=== PATIENT | female | born 1970 | race Caucasian/White ===

== ENCOUNTER → 2017-10-02 09:39 | Outpatient (CLI) | payer BC, SELFPAY ==
[2017-10-02 12:40] LABS: Absolute Lymphocyte Count 2.43 X10^3/ul (0.83-4.51); Absolute Neutrophil Count 4.8 X10^3/uL (2.0-7.7); Basophil# 0.02 X10^3/uL; Basophil% 0.3 % (0-1); Eosinophil# 0.06 X10^3/uL; Eosinophils% 0.8 % (0-5); Hematocrit 42.5 % (37-47); Hemoglobin 14.7 g/dl (12.0-15.0); Lymphocyte # 2.43 X10^3/ul (4.0); Lymphocyte % 30.8 % (19-41); Mean Corp Hgb Conc 34.6 g/gl (32-36); Mean Corpuscular Hgb 31.4 pg (27.0-32.0); Mean Corpuscular Volume 90.8 fL (81-99); Mean Platelet Vol. 9.7 fl (6.2-12.0); Monocyte# 0.51 X10^3/uL; Monocyte% 6.5 % (0-10); Neutrophil # 4.84 X10^3/uL (2.7-7.7); Neutrophil % 61.2 % (47-70); Platelet Count 310 K/mm3 (150-450); RBC Distribution Width CV 13.1 % (11.6-14.6); RBC Distribution Width SD 43.1 fl (35.1-43.9); Red Blood Count 4.68 M/mm3 (4.2-5.4); White Blood Count 7.9 K/mm3 (4.4-11.0)
[2017-10-02 12:59] LABS: POSITIVE COUNT NO; POSITIVE DIFFERENTIAL NO; POSITIVE MORPHOLOGY NO
[2017-10-02 13:03] LABS: Erythrocyte Sedimentation Rate 10 mm/hr (0-20)
[2017-10-02 13:09] LABS: Vitamin D,25 Hydroxy 19.2 ng/mL (29.95-100.01)
[2017-10-02 13:10] LABS: ALB/GLOB Ratio 1.1 RATIO (0.9-2.4); AST(SGOT) 41 U/L (15-37); Alanine Aminotransfer ALT/SGPT 55 U/L (13-56); Albumin, Serum 3.8 g/dL (3.2-5.0); Alkaline Phosphatase 92 U/L (45-117); Anion Gap 11 (5-15); BUN 19 mg/dL (7-18); BUN/Creat Ratio 30.9 RATIO (10-20); Calcium,Total 8.9 mg/dL (8.5-10.1); Chloride 103 mmol/L (98-107); Creatinine, Serum 0.61 mg/dL (0.55-1.02); EST Glomerular Filtration Rate 110 mL/min (>60); Est Glom Filt Rate - Afr Amer 133 mL/min (>60); Globulin 3.6 g/dL (2.2-4.2); Glucose 205 mg/dL (74-106); Potassium 4.1 mmol/L (3.5-5.1); Protein, Total 7.4 g/dL (6.4-8.2); Sodium Level 138 mmol/L (136-145); T4 Free Direct 0.98 ng/dL (0.76-1.46); Thyroid Stim Hormone (TSH) 1.95 uIU/mL (0.358-3.74)
[2017-10-04 11:32] LABS: CCP IgG Antibodies 4 units (0-19)
== END ==
PROVIDERS: Family Provider Family Medicine; PCP Family Medicine; Visit Provider Family Medicine
DX: R76.8 Other specified abnormal immunological findings in serum (principal); E55.9 Vitamin D deficiency, unspecified; I10 Essential (primary) hypertension; E11.9 Type 2 diabetes mellitus without complications; M06.4 Inflammatory polyarthropathy
CPT/HCPCS: 36415; 80053; 82306; 84439; 84443; 85025; 85652; 86140; 86200; 86431

== ENCOUNTER → 2017-11-01 08:20 | Outpatient (CLI) | payer BC, SELFPAY ==
[2017-11-01 13:11] LABS: T4 Free Direct 1.19 ng/dL (0.76-1.46); Thyroid Stim Hormone (TSH) 0.55 uIU/mL (0.358-3.74)
== END ==
PROVIDERS: Family Provider Family Medicine; PCP Family Medicine; Visit Provider Family Medicine
DX: E03.9 Hypothyroidism, unspecified (principal)
CPT/HCPCS: 36415; 84439; 84443

== ENCOUNTER → 2017-11-25 10:00 | Outpatient (CLI) | payer BC, SELFPAY ==
--- NOTE | 2017-11-25 10:10 | RAD_ITS ---
STUDY: X-RAY - PELVIS REASON FOR EXAM: Female, 47 years old. Pain, decreased range of motion TECHNIQUE: One view of the pelvis was obtained. COMPARISON: None. FINDINGS: There is a non-specific bowel gas pattern. Normal visualized soft tissue structures. There is narrowing with cortical sclerosis and osteophyte formation of the sacroiliac joint consistent with degenerative osteoarthritic changes. Normal visualized bilateral superior and inferior pubic rami. Normal pubic symphysis. Normal ischial tuberosities. Normal visualized right femoral head. Normal right acetabulum. There is moderate articular joint space narrowing of the right hip. Normal visualized left femoral head. Normal left acetabulum. There is moderate articular joint space narrowing of the left hip. RAD/Pelvis 1 or 2 Views IMPRESSION: Degenerative arthrosis, no demonstrated fracture or aggressive osseous lesion. However, hip and pelvic fractures in patients of this age can be subtle, if there are strong clinical suspicion of a fracture, recommend further evaluation with cross-sectional imaging Electronically Signed: Gerald Fulton MD at 11:04 EDT , Service support ,
[2017-11-25 12:42] LABS: Absolute Lymphocyte Count 2.44 X10^3/ul (0.83-4.51); Absolute Neutrophil Count 7.5 X10^3/uL (2.0-7.7); Basophil# 0.02 X10^3/uL; Basophil% 0.2 % (0-1); Eosinophil# 0.03 X10^3/uL; Eosinophils% 0.3 % (0-5); Hematocrit 41.4 % (37-47); Hemoglobin 14.4 g/dl (12.0-15.0); Lymphocyte # 2.44 X10^3/ul (4.0); Lymphocyte % 22.7 % (19-41); Mean Corp Hgb Conc 34.8 g/gl (32-36); Mean Corpuscular Hgb 31.6 pg (27.0-32.0); Mean Platelet Vol. 9.7 fl (6.2-12.0); Monocyte# 0.65 X10^3/uL; Monocyte% 6.1 % (0-10); Neutrophil # 7.54 X10^3/uL (2.7-7.7); Neutrophil % 70.2 % (47-70); Platelet Count 322 K/mm3 (150-450); RBC Distribution Width CV 13.2 % (11.6-14.6); Red Blood Count 4.55 M/mm3 (4.2-5.4); White Blood Count 10.7 K/mm3 (4.4-11.0)
[2017-11-25 12:51] LABS: AST(SGOT) 22 U/L (15-37); Alanine Aminotransfer ALT/SGPT 38 U/L (13-56); Albumin, Serum 3.7 g/dL (3.2-5.0); Alkaline Phosphatase 105 U/L (45-117); Anion Gap 9 (5-15); BUN 20 mg/dL (7-18); BUN/Creat Ratio 28.5 RATIO (10-20); Calcium,Total 9.4 mg/dL (8.5-10.1); Chloride 102 mmol/L (98-107); EST Glomerular Filtration Rate 94 mL/min (>60); Est Glom Filt Rate - Afr Amer 114 mL/min (>60); Globulin 3.6 g/dL (2.2-4.2); Glucose 242 mg/dL (74-106); Protein, Total 7.3 g/dL (6.4-8.2); Sodium Level 136 mmol/L (136-145)
[2017-11-25 13:15] LABS: POSITIVE COUNT NO; POSITIVE DIFFERENTIAL NO; POSITIVE MORPHOLOGY NO
[2017-11-26 14:07] LABS: SJOGREN'S Anti-SS-A test < 0.2 AI (0.0-0.9); SJOGREN'S Anti-SS-B test < 0.2 AI (0.0-0.9)
[2017-11-26 15:18] LABS: ANTINUCLEAR ANTIBODIES DIRECT Negative (Negative)
[2017-12-03 11:15] LABS: HEPATITIS B SURFACE AG Negative (Negative); HLA B27 Negative (.); Hep B Surface Antibodies Reactive (.); Hep C Antibodies <0.1 s/co ratio (0.0-0.9)
== END ==
PROVIDERS: Family Provider Family Medicine; PCP Family Medicine; Visit Provider Internal Medicine Rheumatology
DX: M06.4 Inflammatory polyarthropathy (principal); F41.9 Anxiety disorder, unspecified; F32.89 Other specified depressive episodes; I10 Essential (primary) hypertension; E11.9 Type 2 diabetes mellitus without complications; E03.9 Hypothyroidism, unspecified; E78.5 Hyperlipidemia, unspecified; G47.33 Obstructive sleep apnea (adult) (pediatric)
CPT/HCPCS: 36415; 72170; 80053; 81374; 85025; 86038; 86235; 86431; 86706; 86803; 87340

== ENCOUNTER → 2017-11-29 09:12 | Outpatient (CLI) | payer BC, SELFPAY ==
--- NOTE | 2017-11-29 09:14 | US_ITS ---
STUDY: ABDOMINAL ULTRASOUND - RIGHT UPPER QUADRANT REASON FOR VISIT: Female, 47 years old. Elevated liver enzymes TECHNIQUE: Ultrasound evaluation of the right upper quadrant was performed with real-time and static alvarez-scale imaging. TECHNICAL QUALITY: Adequate. COMPARISON: None. FINDINGS: Liver: The liver measures 17.6 cm. There is increased echogenicity consistent with fatty infiltration. The bile ducts are within normal limits. There is hepatic color flow. The direction of portal flow is hepatopetal. There is no demonstrated mass lesion. Gallbladder: Normal distended gallbladder. The gallbladder wall measures 2.6 mm. There is a negative sonographic Lucas's sign. There is no pericholecystic fluid. There is biliary sludge dependent within the gallbladder. Common Bile Duct (C.B.D.): The common bile duct measures 5.1 mm. Pancreas: Normal size of the head, body and tail of the pancreas. There is increased echogenicity of the pancreas. There is no demonstrated pancreatic mass or cyst. Right Kidney: Normal size of the right kidney. The right kidney measures 13.1 x 6 x 5.1 cm. Normal renal cortex. The right cortex measures 2 cm. There is no demonstrated renal mass or cyst. There is no right hydronephrosis. US/Liver IMPRESSION: Mild gallbladder sludge. Hepatic steatosis and mild hepatomegaly. The pancreas is echogenic consistent with fatty replacement. Electronically Signed: Jean Paul Gupta DO at 13:22 EDT Tel , Service support ,
== END ==
PROVIDERS: Family Provider Family Medicine; PCP Family Medicine; Visit Provider Internal Medicine Rheumatology
DX: M06.4 Inflammatory polyarthropathy (principal); F41.9 Anxiety disorder, unspecified; F32.89 Other specified depressive episodes; I10 Essential (primary) hypertension; E11.9 Type 2 diabetes mellitus without complications; E03.9 Hypothyroidism, unspecified; E78.5 Hyperlipidemia, unspecified; G47.33 Obstructive sleep apnea (adult) (pediatric)
CPT/HCPCS: 76705

== ENCOUNTER 2017-12-27 17:35 | Emergency (ER) | payer BC, SELFPAY ==
[2017-12-27 17:36] VITALS: BP 157/97; PULSE 115; RESP 12; TEMP 36.3; O2SAT 97; BMI 29.5
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
[2017-12-27] MEDS: Acetaminophen 500 MG Tablet 1000 MG PO (17:56)
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
[2017-12-27 19:24] VITALS: BP 146/76; PULSE 105; RESP 18; O2SAT 96
== END 2017-12-27 19:25 | disposition home or self-care (01) ==
PROVIDERS: Emergency Provider Emergency Medicine; Family Provider Family Medicine; PCP Family Medicine
DX: S39.012A Strain of muscle, fascia and tendon of lower back, initial encounter (principal); V89.2XXA Person injured in unspecified motor-vehicle accident, traffic, initial encounter; Y93.9 Activity, unspecified; Y92.9 Unspecified place or not applicable; M25.571 Pain in right ankle and joints of right foot; M47.892 Other spondylosis, cervical region; E11.40 Type 2 diabetes mellitus with diabetic neuropathy, unspecified; I10 Essential (primary) hypertension; E78.00 Pure hypercholesterolemia, unspecified; F41.9 Anxiety disorder, unspecified; F32.9 Major depressive disorder, single episode, unspecified; M06.9 Rheumatoid arthritis, unspecified; Z79.4 Long term (current) use of insulin; Z79.899 Other long term (current) drug therapy
CPT/HCPCS: 72040; 72100; 73610; 99283

== ENCOUNTER → 2018-02-19 08:40 | Outpatient (CLI) | payer BC, SELFPAY ==
[2018-02-19 12:31] LABS: Cholesterol 146 mg/dL (200); High Density Lipoprotein 49 mg/dL; Triglycerides 193 mg/dL; Very Low Density Lipoprotein 39 mg/dL (5-40)
== END ==
PROVIDERS: Family Provider Family Medicine; PCP Family Medicine; Visit Provider Family Medicine
DX: E11.9 Type 2 diabetes mellitus without complications (principal); E78.5 Hyperlipidemia, unspecified
CPT/HCPCS: 36415; 80061

== ENCOUNTER → 2018-03-04 08:20 | Outpatient (CLI) | payer BC, SELFPAY ==
[2018-03-04 10:53] LABS: Hematocrit 38.3 % (37-47); Hemoglobin 12.6 g/dl (12.0-15.0); Lymphocyte % 29.2 % (19-41); Mean Corp Hgb Conc 32.9 g/gl (32-36); Mean Corpuscular Hgb 30.1 pg (27.0-32.0); Mean Corpuscular Volume 91.6 fL (81-99); Mean Platelet Vol. 9.2 fl (6.2-12.0); Neutrophil % 62.2 % (47-70); Platelet Count 274 K/mm3 (150-450); RBC Distribution Width CV 13.2 % (11.6-14.6); RBC Distribution Width SD 44.3 fl (35.1-43.9); Red Blood Count 4.18 M/mm3 (4.2-5.4); White Blood Count 8.9 K/mm3 (4.4-11.0)
[2018-03-04 10:54] LABS: Absolute Lymphocyte Count 2.59 X10^3/ul (0.83-4.51); Absolute Neutrophil Count 5.5 X10^3/uL (2.0-7.7); Basophil# 0.02 X10^3/uL; Basophil% 0.2 % (0-1); Eosinophils% 1.1 % (0-5); Lymphocyte # 2.59 X10^3/ul (4.0); Monocyte# 0.63 X10^3/uL; Monocyte% 7.1 % (0-10); POSITIVE COUNT NO; POSITIVE DIFFERENTIAL NO; POSITIVE MORPHOLOGY NO
[2018-03-04 11:09] LABS: Microalbumin,Random Urine 24.7 mg/L (NO RANGE EST.); Microalbumin:Creatinine Ratio 28.4 mg/g CRE (<30 mg/g CRE)
[2018-03-04 11:14] LABS: Hemoglobin A1c 6.7 % (4.2-6.3)
[2018-03-04 11:26] LABS: AST(SGOT) 18 U/L (15-37); Alanine Aminotransfer ALT/SGPT 29 U/L (13-56); Albumin, Serum 3.3 g/dL (3.2-5.0); Alkaline Phosphatase 85 U/L (45-117); Anion Gap 9 (5-15); BUN 14 mg/dL (7-18); BUN/Creat Ratio 22.3 RATIO (10-20); Calcium,Total 8.8 mg/dL (8.5-10.1); Chloride 108 mmol/L (98-107); Creatinine, Serum 0.63 mg/dL (0.55-1.02); EST Glomerular Filtration Rate 107 mL/min (>60); Est Glom Filt Rate - Afr Amer 129 mL/min (>60); Globulin 3.2 g/dL (2.2-4.2); Glucose 112 mg/dL (74-106); Potassium 4.3 mmol/L (3.5-5.1); Protein, Total 6.5 g/dL (6.4-8.2); Sodium Level 143 mmol/L (136-145)
== END ==
PROVIDERS: Family Provider Family Medicine; PCP Family Medicine; Visit Provider Nurse Practitioner
DX: E11.8 Type 2 diabetes mellitus with unspecified complications (principal); M05.79 Rheumatoid arthritis with rheumatoid factor of multiple sites without organ or systems involvement; F41.9 Anxiety disorder, unspecified; F32.89 Other specified depressive episodes; I10 Essential (primary) hypertension; E03.9 Hypothyroidism, unspecified; E78.5 Hyperlipidemia, unspecified; G47.33 Obstructive sleep apnea (adult) (pediatric)
CPT/HCPCS: 80053; 82043; 82570; 83036; 85025

== ENCOUNTER → 2018-06-27 10:48 | Outpatient (CLI) | payer BC, SELFPAY ==
[2018-03-10 09:21] VITALS: BMI 40.6
[2018-06-27 12:18] LABS: Absolute Lymphocyte Count 2.13 X10^3/ul (0.83-4.51); Absolute Neutrophil Count 6.5 X10^3/uL (2.0-7.7); Basophil# 0.03 X10^3/uL; Basophil% 0.3 % (0-1); Eosinophil# 0.05 X10^3/uL; Eosinophils% 0.5 % (0-5); Hemoglobin 13.6 g/dl (12.0-15.0); Lymphocyte # 2.13 X10^3/ul (4.0); Lymphocyte % 22.6 % (19-41); Mean Corp Hgb Conc 33.2 g/gl (32-36); Mean Corpuscular Hgb 30.7 pg (27.0-32.0); Mean Corpuscular Volume 92.6 fL (81-99); Mean Platelet Vol. 9.3 fl (6.2-12.0); Monocyte# 0.69 X10^3/uL; Monocyte% 7.3 % (0-10); Neutrophil # 6.51 X10^3/uL (2.7-7.7); Neutrophil % 69.2 % (47-70); Platelet Count 332 K/mm3 (150-450); RBC Distribution Width CV 13.4 % (11.6-14.6); RBC Distribution Width SD 44.8 fl (35.1-43.9); Red Blood Count 4.43 M/mm3 (4.2-5.4); White Blood Count 9.4 K/mm3 (4.4-11.0)
[2018-06-27 12:26] LABS: ALB/GLOB Ratio 1.1 RATIO (0.9-2.4); AST(SGOT) 15 U/L (15-37); Alanine Aminotransfer ALT/SGPT 28 U/L (13-56); Albumin, Serum 3.7 g/dL (3.2-5.0); Alkaline Phosphatase 83 U/L (45-117); Anion Gap 7 (5-15); BUN 20 mg/dL (7-18); BUN/Creat Ratio 28.1 RATIO (10-20); Calcium,Total 9.3 mg/dL (8.5-10.1); Chloride 105 mmol/L (98-107); Creatinine, Serum 0.71 mg/dL (0.55-1.02); EST Glomerular Filtration Rate 92 mL/min (>60); Est Glom Filt Rate - Afr Amer 112 mL/min (>60); Globulin 3.3 g/dL (2.2-4.2); Glucose 102 mg/dL (74-106); Potassium 4.4 mmol/L (3.5-5.1); Sodium Level 141 mmol/L (136-145)
[2018-06-27 12:27] LABS: POSITIVE COUNT NO; POSITIVE DIFFERENTIAL NO; POSITIVE MORPHOLOGY NO
--- OUTSIDE RECORDS SUMMARY | 2018-08-22 08:22 | XMS RPT_ITS ---
:1970 Author Organization OHIP Support Name Relationship Address Phone SHANTELLE Unavailable [address] + [place] [address] YUNIELJESUSITAVIVIANE JOHNER Unavailable [address] + [place] [address] ISABELLA NASCIMENTO Unavailable [address] + [place] [address] SHANTELLE Unavailable [address] + [place] [address] TONGVIVIANE GLASERER Unavailable [address] + [place] [address] ISABELLA NASCIMENTO Unavailable [address] + [place] [address] SHANTELLE Unavailable [address] + [place] [address] TONGVIVIANE GLASERER Unavailable [address] + [place] [address] ISABELLA NASCIMENTO Unavailable [address] + [place] [address] TONGJAILYN GHANSHYAM Unavailable [address] + [place] [address] ISABELLA NASCIMENTO Unavailable [address] + [place] [address] UE Unavailable Unavailable Unavailable TONGVIVIANE GLASERER Unavailable [address] + [place] [address] ISABELLA NASCIMENTO Unavailable [address] + [place] [address] UE Unavailable Unavailable Unavailable TONGVIVIANE GLASERER Unavailable [address] + [place] [address] ISABELLA NASCIMENTO Unavailable [address] + [place] [address] UE Unavailable Unavailable Unavailable STINCHCOMBVIVIANEER Unavailable [address] + [place] [address] ISABELLA NASCIMENTO Unavailable [address] + [place] [address] UE Unavailable Unavailable Unavailable STINCHCOMB, GHANSHYAM Unavailable [address] + [place] [address] ISABELLA NASCIMENTO Unavailable [address] + [place] [address] UE Unavailable Unavailable Unavailable STINCHCOMB, GHANSHYAM Unavailable [address] + [place] [address] ISABELLA NASCIMENTO Unavailable [address] + [place] [address] UE Unavailable Unavailable Unavailable STINCHCOMB, GHANSHYAM Unavailable [address] + [place] [address] ISABELLA NASCIMENTO Unavailable [address] + [place] [address] UE Unavailable Unavailable Unavailable STINCHCJAILYN GHANSHYAM Unavailable [address] + [place] [address] ISABELLA NASCIMENTO Unavailable [address] + [place] [address] UE Unavailable Unavailable Unavailable STINCHCJAILYN GHANSHYAM Unavailable [address] + [place] [address] ISABELLA NASCIMENTO Unavailable [address] + [place] [address] WOOCISCH Unavailable [address] + [place] [address] STINCHCJAILYN GHANSHYAM Unavailable [address] + [place] [address] ISABELLA NASCIMENTO Unavailable [address] + [place] [address] WOOCISCH Unavailable [address] + [place] [address] Care Team Providers Name Role Phone Daniel Ballesteros Attending Unavailable Daniel Ballesteros Primary Care Unavailable Daniel Ballesteros Attending Unavailable Daniel Ballesteros Primary Care Unavailable Vellanki, Thelma Attending Unavailable Vellanki, Thelma Referring Unavailable Lesli, Daniel Primary Care Unavailable Vellanki, Thelma Attending Unavailable Vellanki, Thelma Referring Unavailable [facility], Daniel Primary Care Unavailable Lala Sr ASSOCIATE COUNSEL-C Attending Unavailable Lesli, Daniel Referring Unavailable [facility], Daniel Primary Care Unavailable [facility], Daniel Primary Care Unavailable Sparkle Haro Attending Unavailable Lesli, Daniel Attending Unavailable [facility], Daniel Primary Care Unavailable Lala Sr ASSOCIATE COUNSEL-C Attending Unavailable [facility], Daniel Referring Unavailable [facility], Daniel Primary Care Unavailable Lala Sr ASSOCIATE COUNSEL-C Attending Unavailable Lala Sr ASSOCIATE COUNSEL-C Referring Unavailable Lesli, Daniel Primary Care Unavailable Vellanki, Thelma Consulting Unavailable Lala Sr ASSOCIATE COUNSEL-C Attending Unavailable Lesli, Daniel Referring Unavailable Lesli, Daniel Primary Care Unavailable Vellanki, Thelma Attending Unavailable Luizlanpayal, Thelma Referring Unavailable Lesli, Daniel Primary Care Unavailable Lala Sr ASSOCIATE COUNSEL-C Attending Unavailable Lesli, Daniel Referring Unavailable Lala Sr ASSOCIATE COUNSEL-C Attending Unavailable Lala Sr ASSOCIATE COUNSEL-C Referring Unavailable [facility], Daniel Primary Care Unavailable PROBLEMS PROBLEMS DATE TYPE CONDITION / CODE ATTENDING STATUS SOURCE 06/30/2018 Unknown E11.65 - Type 2 ShoaLla lucia Active [place] diabetes mellitus ASSOCIATE COUNSEL-C Community with hyperglycemia / Hospital E11.65(ICD-10) Repository 03/10/2018 Unknown E55.9 - Vitamin D Lala Sr Active [place] deficiency, ASSOCIATE COUNSEL-C Community unspecified / Hospital E55.9(ICD-10) Repository 01/20/2018 Unknown E11.8 - Type 2 Shook, Lala J Active [place] diabetes mellitus ASSOCIATE COUNSEL-C Community with unspecified Hospital complications / Repository E11.8(ICD-10) 12/17/2017 Unknown E11.9 - Type 2 Shook, Lala J Active [place] diabetes mellitus ASSOCIATE COUNSEL-C Community without complications Hospital / E11.9(ICD-10) Repository 12/17/2017 Unknown E10.9 - Type 1 Shook, Lala J Active [place] diabetes mellitus ASSOCIATE COUNSEL-C Community without complications Hospital / E10.9(ICD-10) Repository 11/25/2017 Unknown I10 - Essential Vellanki, Thelma Active [place] (primary) Community hypertension / Hospital I10(ICD-10) Repository 11/25/2017 Unknown 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 / Community M06.4(ICD-10) Hospital Repository 11/25/2017 Unknown E03.9 - LuizlanThelma moe Active [place] Hypothyroidism, Community unspecified / Hospital E03.9(ICD-10) Repository 11/25/2017 Unknown F41.9 - Anxiety Thelma Conti Active [place] disorder, unspecified Community / F41.9(ICD-10) Hospital Repository 11/25/2017 Unknown F32.89 - Other Thelma Conti Active [place] specified depressive Community episodes / Hospital F32.89(ICD-10) Repository 11/25/2017 Unknown E78.5 - Vellanpayal, Thelma Active [place] Hyperlipidemia, Community unspecified / Hospital E78.5(ICD-10) Repository 11/25/2017 Unknown G47.33 - Obstructive VelThelma loredo Active [place] sleep apnea (adult) Community (pediatric) / Hospital G47.33(ICD-10) Repository 10/03/2017 Unknown R76.8 - Other Lesli Daniel Active [place] specified abnormal Community immunological Hospital findings in serum / Repository R76.8(ICD-10) PROCEDURES PROCEDURES No Procedure Records FoundRESULTS RESULTS ENDOCRINOLOGY VISIT Observed: 06/30/2018 Status: F Source: [place] [facility] 10:13 AM [facility] [place] [address] [place] [address]. [address] [place] [address] OFFICE VISIT Date of Service: 06/30/18 MR#: [id number] Acct: [id number] Name: SPARKLE ALANIS Rep #: [id number] : 1970 Provider: Lala Sr NP Age/Sex: 47/F Location: [facility] [place] Status: Signed HPI History of present illness History of present illness Sparkle Alanis is a 47 year old female who presents for follow up of diabetes type 2. Diagnosed in 1997. Currently on levemir 96 units in am and 96 units in pm. Pt denies difficulty with injections or self monitoring of BG. Denies any signs of infection or irritation at site of injections. Reports taking insulin as directed. She is currently finding her meals are improved post meal. Using her prandin 4mg each meal and at bedtime snack if she has one. Also has sliding scale humalog as needed. At time of visit: -Pt denies symptoms of hypertensive emergency (CP,SOB,ALFRED, or blurred vision) and hypotension(dizziness or lightheadedness) -Pt denies symptoms of hypoglycemia ( sweaty, confusion, anxiety, tremor, hunger, palpitations) and hyperglycemia ( polydipsia, polyuria) -Pt denies potential medication adverse effect. Hypoglycemia Aware of hypoglycemia: When awake Able to self treat low BG: Yes Frequent low Blood sugar: No Has supply of glucagon: Yes Diet 3 meals daily Understand carb counting Eats healthy Exercise Is active BG readings AVG readings an 113-160 12n 100-140 5p 140-200 9p 140 -150 Occ 200 BG Exam Const General: comfortable, well groomed Nutritional Appearance: well nourished Orientation: oriented x3 HENPR Head: normal to inspection, normocephalic Ears: hearing grossly normal bilaterally Nose: external nose normal Face and sinus: normal facial exam Mouth: oral mucosae normal, moist mucous membranes Teeth and gingiva: dentition normal Eyes Eyelids: eyelids normal Conjunctivae: conjunctivae normal Sclera: sclerae normal Pupils: PERRL Resp Effort AND Inspection: normal respiratory effort, able to speak in complete sentences, symmetric chest movement Auscultation: Bilateral: Clear to Auscultation Cardio Rate: regular rate Rhythm: regular rhythm Heart Sounds: S1 normal, S2 normal, no murmurs, no rubs GI Inspection: normal to inspection Auscultation: normal bowel sounds Palpation: soft Skin General: no rashes or lesions noted Wounds: no wounds Diabetic Foot Pulses: L dorsalis pedis pulse: normal, R dorsalis pedis pulse: normal Monofilament test: Left foot: normal, Right foot: normal Neuro General: oriented x3 Cognition: normal cognition Speech: speech normal Gait: normal gait Extrem General: normal to inspection, normal capillary refill Psych Appearance: grossly normal Mental Status: mental status grossly normal Mood: congruent mood Affect: normal affect Speech and Movement: speech and movement normal Attitude: cooperative Thought Process: normal Thought Content: normal Judgment: judgment good Type: type 2, insulin-requiring Glucose control symptoms: Reports high fasting glucose and high post-meal glucose Weight and fatigue symptoms: Denies snoring Cardiopulmonary symptoms: Denies chest pain at rest, dyspnea on exertion, lightheadedness or myalgias GI symptoms: Denies constipation, diarrhea, nausea/dyspepsia or vomiting Other symptoms: Denies blurry vision or change in vision Pertinent visit history: Denies recent visit to ER, recent hospital admission or recent 911 calls Intake Vital Signs06/30/18 Height 5 ft 9 in 06/30/18 Weight: 276 lb 2 oz 06/30/18 Body Mass Index (BMI) 40.7 06/30/18 Blood Pressure 111/74 06/30/18 Blood Pressure Location Lt popliteal 06/30/18 Blood Pressure Position Sitting Intake Visit Reasons: Diabetes follow-up Credit Charge Authorizer Required: No Accompanied by: Self Allergies metformin HCl [From Glucophage] Adverse Reaction (Verified 06/30/18 09:06) Unknown Medications Aripiprazole [Abilify] 15 mg PO DAILY 02/24/16 [History Confirmed 06/30/18] Cholecalciferol (VIT D3) [Vitamin D] 1,000 unit PO DAILY 02/24/16 [History Confirmed 06/30/18] adrenal assist PO 12/17/17 [History Confirmed 06/30/18] atorvastatin 10 mg tablet 10 mg PO QDAY 12/17/17 [History Confirmed 06/30/18] calcium carb,cit 300 mg-magnesium cit,ox 150 mg-vit D3 400 unit tablet tab PO 12/17/17 [History Confirmed 06/30/18] cbd oil PO 12/17/17 [History Confirmed 06/30/18] insulin detemir (U-100) 100 unit/mL (3 mL) subcutaneous pen 100 unit SC BID #120 ml 12/17/17 [Rx Confirmed 06/30/18] lactobacillus combination no.8 3 billion cell capsule 3,000 mmu cells PO QDAY 12/17/17 [History Confirmed 06/30/18] levothyroxine 175 mcg tablet 175 mcg PO QDAY 12/17/17 [History Confirmed 06/30/18] lisinopril 10 mg tablet 10 mg PO QDAY 12/17/17 [History Confirmed 06/30/18] monolauren PO 12/17/17 [History Confirmed 06/30/18] multivitamin tablet 1 tab PO QDAY 12/17/17 [History Confirmed 06/30/18] naproxen sodium 220 mg capsule 220 mg PO QDAY cap 12/17/17 [History Confirmed 06/30/18] repaglinide 2 mg tablet See Rx Instructions PO TID #240 tab 12/17/17 [Rx Confirmed 06/30/18] theracurmin PO 12/17/17 [History Confirmed 06/30/18] vitamin A 8,000 unit capsule 8,000 unit PO QDAY 12/17/17 [History Confirmed 06/30/18] vitamin B complex tablet 1 tab PO QDAY 12/17/17 [History Confirmed 06/30/18] wellness formula PO 12/17/17 [History Confirmed 06/30/18] Vit B12/Levomefolate/Vit B6/B2 [l-Methyl-Mc Tablet] 1 ea PO 12/27/17 [History Confirmed 06/30/18] hydroxychloroquine 200 mg tablet 200 mg PO BID tab 01/20/18 [History Confirmed 06/30/18] sitagliptin 100 mg tablet 100 mg PO QDAY #30 tab 03/10/18 [Rx Confirmed 06/30/18] insulin aspart U- 100 100 unit/mL subcutaneous pen 50 unit SC DAILY #45 ml 03/24/18 [Rx Confirmed 06/30/18] bupropion HCl XL 150 mg 24 hr tablet, extended release 150 mg PO QAM 06/30/18 [History Confirmed 06/30/18] fluoxetine 20 mg capsule 60 mg PO QDAY cap 06/30/18 [History Confirmed 06/30/18] Nurse's Note: blood sugars : low : 84 high : 315 [facility] Medical History Anxiety and depression (Acute) Arthritis (Acute) Breast lump (Acute) High cholesterol (Acute) Recurrent UTI (Acute) Rheumatoid arthritis (Acute) Sleep apnea (Acute) Thyroid disease (Acute) Type 2 diabetes mellitus (Acute) Vitamin D deficiency (Acute) abnormal calcium level (Acute) HTN (hypertension) (Chronic) Surgical History lip surgery (Acute) Family History Unknown Bleeding disorder Breast cancer Diabetes Heart disease Hypertension High cholesterol Thyroid disorder Skin cancer Social History Smoking Status: Never smoker alcohol intake: never substance use type: does not use ROS Const Constitutional: No anorexia, body ache, chills, fatigue, fever(s), frequent falls, decreased energy, malaise, night sweats, weakness, weight change, sleep problems, abnormal sleep pattern, change in appetite, other, headache(s), snoring or excessive sweating Eyes Eyes: No blurry vision, change in vision, double vision, discharge, dry eyes, bulging eyes, floaters, visual disturbances, eye pain, light sensitivity, spots in vision, tunnel vision or other ENT ENT: No abnormal hearing, ear pain, ear discharge, ear pressure, hearing loss, tinnitus, dizziness/vertigo, balance problems, nosebleed/epistaxis, nasal congestion, nasal obstruction, nose pain, sinus pressure, sinus pain, nasal discharge, post nasal drip, headache(s), facial pain, dental pain, dry mouth, bad breath, hoarseness, lip swelling, mouth lesions, mouth pain, sore throat, tongue swelling, throat swelling, other, difficulty swallowing or neck pain Resp Respiratory: No cough, change in phlegm color, chest congestion, excessive phlegm production, hemoptysis, pain on inspiration, shortness of breath, pain with cough, snoring, stridor, wheezing or other Cardio Cardiology: No chest pain at rest, chest pain with exertion, leg pain with exertion, excessive sweating, shortness of breath, dyspnea on exertion, generalized swelling, irregular heart rhythm, lightheadedness, orthopnea, radiating jaw, neck or arm pain, fast heart rate, slow heart rate, palpitations or other Gastro GI: No abdominal pain, belching, bloating, change in bowel habits, change in stool character, coffee ground emesis, constipation, cramping, diarrhea, heartburn, difficulty swallowing, feeling full early, excessive flatus, incontinent of stools, Vomiting blood/hematemesis, blood in stool, loose stools, Black,tarry stools, nausea/dyspepsia, pain with swallowing, vomiting or other Genitourinary-Female: No difficulty urinating, burning urination, painful urination, urinary incontinence, urinary frequency, urinary urgency, urinary hesitancy, urinary retention, blood in urine, Frequent nighttime urination/ nocturia, post void dribbling, suprapubic fullness, side pain, sexual problems, genital lesions, genital itching, hot flashes, abnormal periods, abnormal vaginal bleeding, absent period, painful periods, light periods, heavy periods, difficulty getting , painful intercourse, pelvic pain, vaginal dryness, vaginal odor, Vaginal Itching or other Musc Musculoskeletal: No abnormal walking, joint pain, back pain, deformity, joint swelling, limited range of motion, loss of height, muscle cramps, muscle weakness, decreased muscle mass, body aches, neck pain, numbness, radiating pain into limb, stiffness, tingling or other Skin Skin: No acne, hair loss, change in hair, nail changes, boil, change in skin color, dry skin, redness, excessive hair growth, yellowing of the skin, lesions, itching, rash, skin pain, skin ulcer, sores, skin swelling, wounds or other Breast Breast: No other Neuro Neurology: No frequent falls, weakness, visual disturbances, abnormal hearing, headache(s), abnormal walking, numbness or tingling Psych Psychiatric: No abnormal sleep pattern, No change in appetite Endo Endocrine: No fatigue, other or excessive sweating Aller/Imm Allergy/Immunologic: No lip swelling, tongue swelling, throat swelling, wheezing or itchy eyes Assessment AND Plan 1. Uncontrolled type 2 diabetes mellitus with hyperglycemia E11.65 Plan Diabetes: Brings BG well documented. Feels good. Does reports BG dropping overnight. Review of data suggests happens more often when she takes sliding scale correction after evening meal so we discussed lowering her correction scale. Will ask patient to lower her levemir dose at bedtime t 90 units to determine if we can avoid drop in BG overnight. Vit D deficency: Has been taking vit D and is time to recheck labs. Lipids: In range BP normal range. Orders Orders: 2. Essential hypertension with goal blood pressure less than 130/80 I10 Plan In normal range. No side effects of medication. Microalbumin normal range. Orders Orders: 3. Hypothyroidism (acquired) E03.9 Plan Hypothyroidism: Taking replacement as directed. not missing any doses. Feels good overall. Severity, modifying factors, context, and associated signs and symptoms are as follows: Thyroid pain: No Energy:good Sleep: awakened refreshed Temp: No intolerance GI: Normal bowel Weight: Flucuates Eyes: No change in vision Memory: unchanged Diaphoresis: Not significant Skin: Dry Hair : Unchanged Neuro: No numbness, tingling or tremors Orders Orders: Plan Detail Other Medications New: Additional Comments 1. Please schedule follow up in 3 months. 2. Lab work one week before appointment. 3. Discussed importance of regular exercise and recommend starting or continuing a regular exercise program for good health. 4. The patient was encouraged to lose weight for good health 5. The importance of monitoring blood sugar regularly was reviewed. 6. The importance of monitoring the HBA1c level regularly was reviewed. 7. The importance of prper foot care and regularly checking feet to prevent sores and loss of limbs was reviewed. 8. The importance of keeping BP at or below 130/80 to prevent stroke, heart attacks, kidney failure, blindness was reviewed. Spent approximately 30 minutes with patient with over 50% of time spent in discussion and counseling regarding medication adjustment, symptoms and treatment of hypoglycemia, diet adherence, and checking BG before driving. Coding Level of Care Code Off vis,est,level 4 Diagnoses Uncontrolled type 2 diabetes mellitus with hyperglycemia E11.65 Glycemic state: with hyperglycemia Essential hypertension with goal blood pressure less than 130/80 I10 Hypothyroidism (acquired) E03.9 06/30/18 1013 <Electronically signed by Lala HORAN> Date Lala HORAN Cosigner Signature: Date (if applicable) CC: HEMOGLOBIN A1C Collected: 06/30/2018 Status: F Source: [place] 10:01 AM [facility] [place] [place] TYPE CODE TESTS RESULT OUT OF RANGE REFERENCE UNITS LAB L501.9985 4.2-6.3 % High HGB A1C 6.8 Performed By: #### L501.9985 #### [place] [facility] [address] [place], [address] VITAMIN D,25 HYDROXY Collected: 06/30/2018 Status: F Source: [place] 10:01 AM [facility] [place] [place] TYPE CODE TESTS RESULT OUT OF RANGE REFERENCE UNITS LAB L506.1000 29.95-100.01 ng/mL Normal Vitamin D 50.0 25-OH Result Comment: Vitamin D 25(OH) Status Range Deficiency <20 ng/mL (50nmol/L) Insuffciency 20 - 30 ng/mL (50 - 75 nmol/L) Sufficiency 30 - 100 ng/mL (75 - 250 nmol/L) Toxicity >100 ng/mL (>250 nmol/L) Performed By: #### L506.1000 #### [facility] [address] [place], [address] COMPREHENSIVE METABOLIC Collected: 06/27/2018 Status: F Source: [place] [facility] 10:59 AM [facility] [place] TYPE CODE TESTS RESULT OUT OF RANGE REFERENCE UNITS LAB L501.0100 74-106 mg/dL Normal GLU 102 Result Comment: Fasting Glucose result from 100 to 125 mg/dL suggests IMPAIRED HOMEOSTASIS per A.D.A. criteria. Please note revised GLUCOSE reference range effective 2017. LAB L501.1000 7-18 mg/dL High BUN 20 LAB L501.1100 0.55-1.02 mg/dL Normal CREAT,SERUM 0.71 Result Comment: The validity of the calculated GFR AND GFRAA in patients over 70 years has not been determined. Clinical correlation is essential. LAB L501.1110 >60 mL/min Normal EST GFR 92 Result Comment: Non- GFR Calc LAB L501.1115 >60 mL/min Normal EST GFR - AA 112 Result Comment: GFR Calc LAB L501.1300 10-20 RATIO High BUN/CRE 28.1 LAB L501.1500 6.4-8.2 g/dL T Normal PROT 7.0 LAB L501.1800 3.2-5.0 g/dL Normal ALB 3.7 LAB L501.1950 2.2-4.2 g/dL Normal GLOB 3.3 LAB L501.2000 0.9-2.4 RATIO Normal A/G 1.1 LAB L501.2200 8.5-10.1 mg/dL CA Normal 9.3 LAB L501.4100 15-37 U/L Normal AST 15 LAB L501.4305 45-117 U/L Normal ALK P 83 LAB L501.4405 13-56 U/L Normal ALT 28 LAB L501.4600 0.20-1.00 mg/dL T Normal BILI 0.70 LAB L501.5300 136-145 mmol/L NA Normal 141 LAB L501.5600 3.5-5.1 mmol/L K Normal 4.4 LAB L501.5900 98-107 mmol/L CL Normal 105 LAB L501.6100 21.0-32.0 mmol/L Normal CO2 29.0 LAB L501.6200 5-15 Normal GAP 7 Performed By: #### L500.4050 #### [facility] [address] [place], [place], [address] CBC W/DIFF, AUTOMATED Collected: 06/27/2018 Status: F Source: [place] 10:59 AM [facility] [place] TYPE CODE TESTS RESULT OUT OF RANGE REFERENCE UNITS LAB L100.1000 4.4-11.0 K/mm3 Normal WBC 9.4 LAB L100.1200 4.2-5.4 M/mm3 Normal RBC 4.43 LAB L100.1300 12.0-15.0 g/dl Normal HGB 13.6 LAB L100.1400 37-47 % Normal HCT 41.0 LAB L100.1500 81-99 fL Normal MCV 92.6 LAB L100.1600 27.0-32.0 pg Normal MCH 30.7 LAB L100.1700 32-36 g/gl Normal MCHC 33.2 LAB L100.1810 11.6-14.6 % Normal RDW CV 13.4 LAB L100.1820 35.1-43.9 fl High RDW SD 44.8 LAB L100.1900 150-450 K/mm3 Normal PLT 332 LAB L100.2000 6.2-12.0 fl Normal MPV 9.3 LAB L100.2100 47-70 % Normal NEUT% 69.2 LAB L100.2200 19-41 % Normal LY% 22.6 LAB L100.2300 0-10 % Normal MONO% 7.3 LAB L100.2400 0-5 % Normal EO% 0.5 LAB L100.2500 0-1 % Normal BASO% 0.3 LAB L100.2550 0.0-0.9 % Normal IM GRAN % 0.100 Result Comment: IG% - Immature Granulocytes (promyelocytes, myelocytes and metamyelocytes) > 1% indicates that a LEFT SHIFT is Present. LAB L100.2620 2.0-7.7 X10 3/uL Normal Absolute Neut 6.5 LAB L100.2720 0.83-4.51 X10 3/ul Normal Absolute Lymph 2.13 Performed By: #### L100.0100 #### [facility] [address] [place], [address] ENDOCRINOLOGY VISIT Observed: 03/11/2018 Status: F Source: [place] [facility] 7:18 PM [facility] [place] [facility] [address] [place] [address] OFFICE VISIT Date of Service: 03/10/18 MR#: [id number] Acct: [id number] Name: SPARKLE ALANIS Rep #: [id number] : 1970 Provider: Lala Sr NP Age/Sex: 47/F Location: [facility] [place] Status: Signed HPI History of present illness Sparkle Alanis is a 47 year old female who presents for follow up of diabetes type 2. Diagnosed in 1997. Currently on levemir 90 units in am and 96 units in pm. Pt denies difficulty with injections or self monitoring of BG. Denies any signs of infection or irritation at site of injections. Reports taking insulin as directed. She is currently finding her meals are improved post meal. Using her prandin 4mg each meal and at bedtime snack if she has one At time of visit: -Pt denies symptoms of hypertensive emergency (CP,SOB,ALFRED, or blurred vision) and hypotension(dizziness or lightheadedness) -Pt denies symptoms of hypoglycemia ( sweaty, confusion, anxiety, tremor, hunger, palpitations) and hyperglycemia ( polydipsia, polyuria) -Pt denies potential medication adverse effect. Hypoglycemia Aware of hypoglycemia: When awake Able to self treat low BG: Yes Frequent low Blood sugar: No Has supply of glucagon: Yes Diet 3 meals daily Understand carb counting Eats healthy Exercise Is active BG readings AVG readings an 120 -150 12n 100-140 5p 140-160 9p 140 -150 Occ 200 BG Exam Const General: comfortable, well groomed Nutritional Appearance: well nourished Orientation: oriented x3 HENMT Head: normal to inspection, normocephalic Ears: hearing grossly normal bilaterally Nose: external nose normal Face and sinus: normal facial exam Mouth: oral mucosae normal, moist mucous membranes Teeth and gingiva: dentition normal Eyes Eyelids: eyelids normal Conjunctivae: conjunctivae normal Sclera: sclerae normal Pupils: PERRL Resp Effort AND Inspection: normal respiratory effort, able to speak in complete sentences, symmetric chest movement Auscultation: Bilateral: Clear to Auscultation Cardio Rate: regular rate Rhythm: regular rhythm Heart Sounds: S1 normal, S2 normal, no murmurs, no rubs GI Inspection: normal to inspection Auscultation: normal bowel sounds Palpation: soft Skin General: no rashes or lesions noted Wounds: no wounds Diabetic Foot Pulses: L dorsalis pedis pulse: normal, R dorsalis pedis pulse: normal Monofilament test: Left foot: normal, Right foot: normal Neuro General: oriented x3 Cognition: normal cognition Speech: speech normal Gait: normal gait Extrem General: normal to inspection, normal capillary refill Psych Appearance: grossly normal Mental Status: mental status grossly normal Mood: congruent mood Affect: normal affect Speech and Movement: speech and movement normal Attitude: cooperative Thought Process: normal Thought Content: normal Judgment: judgment good Type: type 2 Glucose control symptoms: Reports high post-meal glucose Weight and fatigue symptoms: Denies snoring Cardiopulmonary symptoms: Denies chest pain at rest, dyspnea on exertion, lightheadedness or myalgias GI symptoms: Denies constipation, diarrhea, nausea/dyspepsia or vomiting Other symptoms: Denies blurry vision or change in vision Pertinent visit history: Denies recent visit to ER, recent DKA or recent 911 calls Self monitoring: Yes Percentage of fasting blood glucose within goal: >50% of the time Dietary compliance: Diabetes: good Glucose testing: demonstrates correct use of meter day education - understands ketone testing: Yes Physical activity: regular Intake Vital Signs03/10/18 Height 5 ft 9 in 03/10/18 Weight: 275 lb 8 oz 03/10/18 Body Mass Index (BMI) 40.6 03/10/18 Blood Pressure 141/87 03/10/18 Blood Pressure Location Lt popliteal 03/10/18 Blood Pressure Position Sitting Intake Visit Reasons: diabetes Credit Charge Authorizer Required: No Accompanied by: Self Is patient in pain?: No Allergies metformin HCl [From Glucophage] Adverse Reaction (Verified 03/10/18 09:19) Unknown Medications Aripiprazole [Abilify] 15 mg PO DAILY 02/24/16 [History Confirmed 03/10/18] Cholecalciferol (VIT D3) [Vitamin D] 1,000 unit PO DAILY 02/24/16 [History Confirmed 03/10/18] Venlafaxine XR [Effexor Xr] 150 mg PO DAILY 02/24/16 [History Confirmed 03/10/18] adrenal assist PO 12/17/17 [History Confirmed 03/10/18] atorvastatin 10 mg tablet 10 mg PO QDAY 12/17/17 [History Confirmed 03/10/18] calcium carb,cit 300 mg-magnesium cit,ox 150 mg-vit D3 400 unit tablet tab PO 12/17/17 [History Confirmed 03/10/18] cbd oil PO 12/17/17 [History Confirmed 03/10/18] insulin detemir (U-100) 100 unit/mL (3 mL) subcutaneous pen 100 unit SC BID #120 ml 12/17/17 [Rx Confirmed 03/10/18] lactobacillus combination no.8 3 billion cell capsule 3,000 mmu cells PO QDAY 12/17/17 [History Confirmed 03/10/18] levothyroxine 175 mcg tablet 175 mcg PO QDAY 12/17/17 [History Confirmed 03/10/18] lisinopril 10 mg tablet 10 mg PO QDAY 12/17/17 [History Confirmed 03/10/18] monolauren PO 12/17/17 [History Confirmed 03/10/18] multivitamin tablet 1 tab PO QDAY 12/17/17 [History Confirmed 03/10/18] naproxen sodium 220 mg capsule 220 mg PO QDAY cap 12/17/17 [History Confirmed 03/10/18] repaglinide 2 mg tablet See Label Instructions PO TID #240 tab 12/17/17 [Rx Confirmed 03/10/18] theracurmin PO 12/17/17 [History Confirmed 03/10/18] vitamin A 8,000 unit capsule 8,000 unit PO QDAY 12/17/17 [History Confirmed 03/10/18] vitamin B complex tablet 1 tab PO QDAY 12/17/17 [History Confirmed 03/10/18] wellness formula PO 12/17/17 [History Confirmed 03/10/18] Vit B12/Levomefolate/Vit B6/B2 [l-Methyl-Mc Tablet] 1 ea PO 12/27/17 [History Confirmed 03/10/18] hydroxychloroquine 200 mg tablet 200 mg PO BID tab 01/20/18 [History Confirmed 03/10/18] fluoxetine 20 mg capsule 20 mg PO QDAY 03/10/18 [History Confirmed 03/10/18] sitagliptin 100 mg tablet 100 mg PO QDAY #30 tab 03/10/18 [Rx Confirmed 03/10/18] Is last menstrual period known: No Post menopausal: Yes Patient : No Nurse's Note: blood sugars : low : 104 high : 312 PFSH Medical History Anxiety and depression (Acute) Arthritis (Acute) Breast lump (Acute) High cholesterol (Acute) Recurrent UTI (Acute) Rheumatoid arthritis (Acute) Sleep apnea (Acute) Thyroid disease (Acute) Type 2 diabetes mellitus (Acute) Vitamin D deficiency (Acute) abnormal calcium level (Acute) HTN (hypertension) (Chronic) Surgical History lip surgery (Acute) Family History Unknown Bleeding disorder Breast cancer Diabetes Heart disease Hypertension High cholesterol Thyroid disorder Skin cancer Social History Smoking Status: Never smoker alcohol intake: never substance use type: does not use ROS Const Constitutional: No anorexia, body ache, chills, fatigue, fever(s), frequent falls, decreased energy, malaise, night sweats, weakness, weight change, sleep problems, abnormal sleep pattern, change in appetite, other, headache(s), snoring or excessive sweating Eyes Eyes: No blurry vision, change in vision, double vision, discharge, dry eyes, bulging eyes, floaters, visual disturbances, eye pain, light sensitivity, spots in vision, tunnel vision or other ENT ENT: No abnormal hearing, ear pain, ear discharge, ear pressure, hearing loss, tinnitus, dizziness/vertigo, balance problems, nosebleed/epistaxis, nasal congestion, nasal obstruction, nose pain, sinus pressure, sinus pain, nasal discharge, post nasal drip, headache(s), facial pain, dental pain, dry mouth, bad breath, hoarseness, lip swelling, mouth lesions, mouth pain, sore throat, tongue swelling, throat swelling, other, difficulty swallowing or neck pain Resp Respiratory: No cough, change in phlegm color, chest congestion, excessive phlegm production, hemoptysis, pain on inspiration, shortness of breath, pain with cough, snoring, stridor, wheezing or other Cardio Cardiology: No chest pain at rest, chest pain with exertion, leg pain with exertion, excessive sweating, shortness of breath, dyspnea on exertion, generalized swelling, irregular heart rhythm, lightheadedness, orthopnea, radiating jaw, neck or arm pain, fast heart rate, slow heart rate, palpitations or other Gastro GI: No abdominal pain, belching, bloating, change in bowel habits, change in stool character, coffee ground emesis, constipation, cramping, diarrhea, heartburn, difficulty swallowing, feeling full early, excessive flatus, incontinent of stools, Vomiting blood/hematemesis, blood in stool, loose stools, Black,tarry stools, nausea/dyspepsia, pain with swallowing, vomiting or other Genitourinary-Female: No difficulty urinating, burning urination, painful urination, urinary incontinence, urinary frequency, urinary urgency, urinary hesitancy, urinary retention, blood in urine, Frequent nighttime urination/ nocturia, post void dribbling, suprapubic fullness, side pain, sexual problems, genital lesions, genital itching, hot flashes, abnormal periods, abnormal vaginal bleeding, absent period, painful periods, light periods, heavy periods, difficulty getting , painful intercourse, pelvic pain, vaginal dryness, vaginal odor, Vaginal Itching or other Musc Musculoskeletal: No abnormal walking, joint pain, back pain, deformity, joint swelling, limited range of motion, loss of height, muscle cramps, muscle weakness, decreased muscle mass, body aches, neck pain, numbness, radiating pain into limb, stiffness, tingling or other Skin Skin: No acne, hair loss, change in hair, nail changes, boil, change in skin color, dry skin, redness, excessive hair growth, yellowing of the skin, lesions, itching, rash, skin pain, skin ulcer, sores, skin swelling, wounds or other Breast Breast: No other Neuro Neurology: No frequent falls, weakness, visual disturbances, abnormal hearing, headache(s), abnormal walking, numbness or tingling Psych Psychiatric: No abnormal sleep pattern, No change in appetite Endo Endocrine: No fatigue, other or excessive sweating Aller/Imm Allergy/Immunologic: No lip swelling, tongue swelling, throat swelling, wheezing or itchy eyes Assessment AND Plan Problems 1. Uncontrolled type 2 diabetes mellitus with complication, with long-term current use of insulin E11.8 2. Essential hypertension with goal blood pressure less than 130/80 I10 Plan Will further increase insulin up to 100 units. Also will apply for coupon for [employer] to bring overall cost down for patient. Can use sliding scale novolog as needed. Given sample. Scale 5 units per 50. BP rechecked 132/76. Working hard at diet and exercise. Needs vitamind D levels checked. A1c now 6.7 which is really great. Orders Orders: Medications New: Plan Detail Additional Comments 1. Please schedule follow up in 3 months. 2. Lab work one week before appointment. 3. Discussed importance of regular exercise and recommend starting or continuing a regular exercise program for good health. 4. The patient was encouraged to lose weight for good health 5. The importance of monitoring blood sugar regularly was reviewed. 6. The importance of monitoring the HBA1c level regularly was reviewed. 7. The importance of prper foot care and regularly checking feet to prevent sores and loss of limbs was reviewed. 8. The importance of keeping BP at or below 130/80 to prevent stroke, heart attacks, kidney failure, blindness was reviewed. Spent approximately 30 minutes with patient with over 50% of time spent in discussion and counseling regarding medication adjustment, symptoms and treatment of hypoglycemia, diet adherence, and checking BG before driving. Reviewed records, labs. Coding Level of Care Code Off vis,est,level 4 Diagnoses Uncontrolled type 2 diabetes mellitus with complication, with long-term current use of insulin E11.8 Diabetes mellitus fdc insulin use: with manager intermediate use Diabetes mellitus complication status: with unspecified complications Essential hypertension with goal blood pressure less than 130/80 I10 03/11/181917 <Electronically signed by Lala HORAN> Date Lala HORAN Cosigner Signature: Date (if applicable) CC: CBC W/DIFF, AUTOMATED Collected: 03/04/2018 Status: F Source: [place] 8:27 AM [facility] Order Comment: SUNI ORDERED CMP AND CBCD JOSERON ORDERED HA1C,MIALB,CMP TYPE CODE TESTS RESULT OUT OF RANGE REFERENCE UNITS LAB L100.1000 4.4-11.0 K/mm3 Normal WBC 8.9 LAB L100.1200 4.2-5.4 M/mm3 Low RBC 4.18 LAB L100.1300 12.0-15.0 g/dl Normal HGB 12.6 LAB L100.1400 37-47 % Normal HCT 38.3 LAB L100.1500 81-99 fL Normal MCV 91.6 LAB L100.1600 27.0-32.0 pg Normal MCH 30.1 LAB L100.1700 32-36 g/gl Normal MCHC 32.9 LAB L100.1810 11.6-14.6 % Normal RDW CV 13.2 LAB L100.1820 35.1-43.9 fl High RDW SD 44.3 LAB L100.1900 150-450 K/mm3 Normal PLT 274 LAB L100.2000 6.2-12.0 fl Normal MPV 9.2 LAB L100.2100 47-70 % Normal NEUT% 62.2 LAB L100.2200 19-41 % Normal LY% 29.2 LAB L100.2300 0-10 % Normal MONO% 7.1 LAB L100.2400 0-5 % Normal EO% 1.1 LAB L100.2500 0-1 % Normal BASO% 0.2 LAB L100.2550 0.0-0.9 % Normal IM GRAN % 0.200 Result Comment: IG% - Immature Granulocytes (promyelocytes, myelocytes and metamyelocytes) > 1% indicates that a LEFT SHIFT is Present. LAB L100.2620 2.0-7.7 X10 3/uL Normal Absolute Neut 5.5 LAB L100.2720 0.83-4.51 X10 3/ul Normal Absolute Lymph 2.59 Performed By: #### L100.0100 #### [facility] [address] [place], [address] MICROALB:CREAT Collected: 03/04/2018 Status: F Source: LINO RATIO,RANDOM UR 8:27 AM [facility] Order Comment: VELLANKI ORDERED CMP AND CBCD SHOOK ORDERED HA1C,MIALB,CMP TYPE CODE TESTS RESULT OUT OF RANGE REFERENCE UNITS LAB L501.1200 NO RANGE EST. mg/dL Normal UR CREAT 87.10 LAB L502.0500 NO RANGE EST. mg/L Normal 24.7 MICROALBUMIN ,UR LAB L502.0600 <30 mg/g CRE mg/g CRE Normal 28.4 MALB:CREAT Performed By: #### L502.0250, L501.9985 #### [facility] [address] [place], [place], [address] HEMOGLOBIN A1C Collected: 03/04/2018 Status: F Source: LINO 8:27 AM [facility] Order Comment: VELLANKI ORDERED CMP AND CBCD SHOOK ORDERED HA1C,MIALB,CMP TYPE CODE TESTS RESULT OUT OF RANGE REFERENCE UNITS LAB L501.9985 4.2-6.3 % High HGB A1C 6.7 Performed By: #### L502.0250, L501.9985 #### [facility] [address] [place], [place], [address] COMPREHENSIVE METABOLIC Collected: 03/04/2018 Status: F Source: LINO PROFIL 8:27 AM [facility] Order Comment: VELLANKI ORDERED CMP AND CBCD SHOOK ORDERED HA1C,MIALB,CMP TYPE CODE TESTS RESULT OUT OF RANGE REFERENCE UNITS LAB L501.0100 74-106 mg/dL High GLU 112 Result Comment: Fasting Glucose result from 100 to 125 mg/dL suggests IMPAIRED HOMEOSTASIS per A.D.A. criteria. Please note revised GLUCOSE reference range effective 2017. LAB L501.1000 7-18 mg/dL Normal BUN 14 LAB L501.1100 0.55-1.02 mg/dL Normal CREAT,SERUM 0.63 Result Comment: The validity of the calculated GFR AND GFRAA in patients over 70 years has not been determined. Clinical correlation is essential. LAB L501.1110 >60 mL/min Normal EST GFR 107 Result Comment: Non- GFR Calc LAB L501.1115 >60 mL/min Normal EST GFR - AA 129 Result Comment: GFR Calc LAB L501.1300 10-20 RATIO High BUN/CRE 22.3 LAB L501.1500 6.4-8.2 g/dL T Normal PROT 6.5 LAB L501.1800 3.2-5.0 g/dL Normal ALB 3.3 LAB L501.1950 2.2-4.2 g/dL Normal GLOB 3.2 LAB L501.2000 0.9-2.4 RATIO Normal A/G 1.0 LAB L501.2200 8.5-10.1 mg/dL CA Normal 8.8 LAB L501.4100 15-37 U/L Normal AST 18 LAB L501.4305 45-117 U/L Normal ALK P 85 LAB L501.4405 13-56 U/L Normal ALT 29 LAB L501.4600 0.20-1.00 mg/dL T Normal BILI 0.40 LAB L501.5300 136-145 mmol/L NA Normal 143 LAB L501.5600 3.5-5.1 mmol/L K Normal 4.3 LAB L501.5900 98-107 mmol/L High CL 108 LAB L501.6100 21.0-32.0 mmol/L Normal CO2 26.0 LAB L501.6200 5-15 Normal GAP 9 Performed By: #### L500.4050 #### [facility] [address] [place], [address] LIPID PROFILE Collected: 02/19/2018 Status: F Source: [place] 8:41 AM [facility] TYPE CODE TESTS RESULT OUT OF RANGE REFERENCE UNITS LAB L501.4900 200 mg/dL Normal CHOL 146 Result Comment: <200 mg/dL Desirable 200-240 mg/dL Borderline >240 mg/dL High Risk LAB L501.5000 mg/dL Normal TRIG 193 Result Comment: The drugs N-Acetylcysteine and Metamizole may falsely depress this assay. Serum Triglycerides Reference Interval Normal <150 mg/dL Borderline high 150 - 199 mg/dL High 200 - 499 mg/dL Very High > or = 500 mg/dL LAB L501.6400 mg/dL Normal HDL 49 Result Comment: The drugs N-Acetylcysteine and Metamizole may falsely depress this assay. Reference Range HDL <40 mg/dL Low HDL Cholesterol HDL >or= 60 mg/dL High HDL Cholesterol LAB L501.6500 0-130 mg/dL Normal LDL 58 LAB L501.6600 5-40 mg/dL Normal VLDL 39 Performed By: #### L500.4100 #### [facility] [address] [place], [address] ENDOCRINOLOGY VISIT Observed: 01/22/2018 Status: F Source: [place] REPORT 6:07 AM [facility] [address] [place] [address] OFFICE VISIT Date of Service: 01/20/18 MR#: [id number] Acct: [id number] Name: SPARKLE ALANIS Rep #: [id number] : 1970 Provider: Lala Sr NP Age/Sex: 47/F Location: [facility] [place] Status: Signed HPI History of present illness HPI History of present illness Sparkle Alanis is a 47 year old female who presents for follow up of diabetes type 2. Diagnosed in 1997. Currently on levemir 90 units twice daily. Pt denies difficulty with injections or self monitoring of BG. Denies any signs of infection or irritation at site of injections. Reports taking insulin as directed. She is currently finding her meals are improved post meal. Using her prandin 4mg each meal and at bedtime snack if she has one At time of visit: -Pt denies symptoms of hypertensive emergency (CP,SOB,ALFRED, or blurred vision) and hypotension(dizziness or lightheadedness) -Pt denies symptoms of hypoglycemia ( sweaty, confusion, anxiety, tremor, hunger, palpitations) and hyperglycemia ( polydipsia, polyuria) -Pt denies potential medication adverse effect. Hypoglycemia Aware of hypoglycemia: When awake Able to self treat low BG: Yes Frequent low Blood sugar: No Has supply of glucagon: Yes Diet 3 meals daily Understand carb counting Eats healthy Exercise Is active BG readings AVG readings an 140-180 12n 80-140 5p 80-140 9p 70-150 Occ 200 BG Type: type 2, insulin-requiring Glucose control symptoms: Reports high post-meal glucose Weight and fatigue symptoms: Denies snoring Cardiopulmonary symptoms: Reports lightheadedness; denies chest pain at rest, dyspnea on exertion or myalgias GI symptoms: Denies constipation, diarrhea, nausea/dyspepsia or vomiting Other symptoms: Denies blurry vision or change in vision Pertinent visit history: Denies recent visit to ER or recent DKA Self monitoring: Yes Dietary compliance: Diabetes: good Diabetes education in past year: Yes Glucose testing: demonstrates correct use of meter, understands testing schedule Sick day education - understands ketone testing: Yes Physical activity: regular Exam Const General: comfortable, well groomed Nutritional Appearance: well nourished Orientation: oriented x3 [facility] Head: normal to inspection, normocephalic Ears: hearing grossly normal bilaterally Nose: external nose normal Face and sinus: normal facial exam Mouth: oral mucosae normal, moist mucous membranes Teeth and gingiva: dentition normal Eyes Eyelids: eyelids normal Conjunctivae: conjunctivae normal Sclera: sclerae normal Pupils: PERRL Resp Effort AND Inspection: normal respiratory effort, able to speak in complete sentences, symmetric chest movement Auscultation: Bilateral: Clear to Auscultation Cardio Rate: regular rate Rhythm: regular rhythm Heart Sounds: S1 normal, S2 normal, no murmurs, no rubs GI Inspection: normal to inspection Auscultation: normal bowel sounds Palpation: soft Skin General: no rashes or lesions noted Wounds: no wounds Diabetic Foot Pulses: L dorsalis pedis pulse: normal, R dorsalis pedis pulse: normal Monofilament test: Left foot: normal, Right foot: normal Neuro General: oriented x3 Cognition: normal cognition Speech: speech normal Gait: normal gait Extrem General: normal to inspection, normal capillary refill Psych Appearance: grossly normal Mental Status: mental status grossly normal Mood: congruent mood Affect: normal affect Speech and Movement: speech and movement normal Attitude: cooperative Thought Process: normal Thought Content: normal Judgment: judgment good Weight and fatigue symptoms: Denies snoring Cardiopulmonary symptoms: Denies chest pain at rest, dyspnea on exertion, lightheadedness or myalgias GI symptoms: Denies constipation, diarrhea, nausea/dyspepsia or vomiting Other symptoms: Denies blurry vision or change in vision Intake Vital Signs01/20/18 Height 5 ft 9 in 01/20/18 Weight: 274 lb 6 oz 01/20/18 Body Mass Index (BMI) 40.5 01/20/18 Blood Pressure 138/85 01/20/18 Blood Pressure Location Lt popliteal 01/20/18 Blood Pressure Position Sitting Intake Visit Reasons: Follow up Credit Charge Authorizer Required: No Accompanied by: Self Is patient in pain?: No Allergies metformin HCl [From Glucophage] Adverse Reaction (Verified 01/20/18 09:25) Unknown Medications Aripiprazole [Abilify] 15 mg PO DAILY 02/24/16 [History Confirmed 01/20/18] Cholecalciferol (VIT D3) [Vitamin D] 1,000 unit PO DAILY 02/24/16 [History Confirmed 01/20/18] Venlafaxine XR [Effexor Xr] 150 mg PO DAILY 02/24/16 [History Confirmed 01/20/18] adrenal assist PO 12/17/17 [History Confirmed 01/20/18] atorvastatin 10 mg tablet 10 mg PO QDAY 12/17/17 [History Confirmed 01/20/18] calcium carb,cit 300 mg-magnesium cit,ox 150 mg-vit D3 400 unit tablet tab PO 12/17/17 [History Confirmed 01/20/18] cbd oil PO 12/17/17 [History Confirmed 01/20/18] insulin detemir (U-100) 100 unit/mL (3 mL) subcutaneous pen 100 unit SC BID #120 ml 12/17/17 [Rx Confirmed 01/20/18] lactobacillus combination no.8 3 billion cell capsule 3,000 mmu cells PO QDAY 12/17/17 [History Confirmed 01/20/18] levothyroxine 175 mcg tablet 175 mcg PO QDAY 12/17/17 [History Confirmed 01/20/18] lisinopril 10 mg tablet 10 mg PO QDAY 12/17/17 [History Confirmed 01/20/18] monolauren PO 12/17/17 [History Confirmed 01/20/18] multivitamin tablet 1 tab PO QDAY 12/17/17 [History Confirmed 01/20/18] naproxen sodium 220 mg capsule 220 mg PO QDAY cap 12/17/17 [History Confirmed 01/20/18] repaglinide 2 mg tablet See Label Instructions PO TID #240 tab 12/17/17 [Rx Confirmed 01/20/18] sitagliptin 100 mg tablet 100 mg PO QDAY 12/17/17 [History Confirmed 01/20/18] theracurmin PO 12/17/17 [History Confirmed 01/20/18] vitamin A 8,000 unit capsule 8,000 unit PO QDAY 12/17/17 [History Confirmed 01/20/18] vitamin B complex tablet 1 tab PO QDAY 12/17/17 [History Confirmed 01/20/18] wellness formula PO 12/17/17 [History Confirmed 01/20/18] Vit B12/Levomefolate/Vit B6/B2 [l-Methyl-Mc Tablet] 1 ea PO 12/27/17 [History Confirmed 01/20/18] fluoxetine 10 mg capsule 10 mg PO QDAY 01/20/18 [History Confirmed 01/20/18] hydroxychloroquine 200 mg tablet 200 mg PO BID tab 01/20/18 [History Confirmed 01/20/18] Is last menstrual period known: No Post menopausal: No Patient : No Nurse's Note: blood sugars : low : 116 high : 260 [facility] Medical History Anxiety and depression (Acute) Arthritis (Acute) Breast lump (Acute) High cholesterol (Acute) Recurrent UTI (Acute) Rheumatoid arthritis (Acute) Sleep apnea (Acute) Thyroid disease (Acute) Type 2 diabetes mellitus (Acute) Vitamin D deficiency (Acute) abnormal calcium level (Acute) HTN (hypertension) (Chronic) Surgical History lip surgery (Acute) Family History Unknown Bleeding disorder Breast cancer Diabetes Heart disease Hypertension High cholesterol Thyroid disorder Skin cancer Social History Smoking Status: Never smoker alcohol intake: never substance use type: does not use ROS Const Constitutional: Positive for fatigue; no anorexia, body ache, chills, fever(s), frequent falls, decreased energy, malaise, night sweats, weakness, weight change, sleep problems, abnormal sleep pattern, change in appetite, other, headache(s), snoring or excessive sweating Eyes Eyes: No blurry vision, change in vision, double vision, discharge, dry eyes, bulging eyes, floaters, visual disturbances, eye pain, light sensitivity, spots in vision, tunnel vision or other ENT ENT: No abnormal hearing, ear pain, ear discharge, ear pressure, hearing loss, tinnitus, dizziness/vertigo, balance problems, nosebleed/epistaxis, nasal congestion, nasal obstruction, nose pain, sinus pressure, sinus pain, nasal discharge, post nasal drip, headache(s), facial pain, dental pain, dry mouth, bad breath, hoarseness, lip swelling, mouth lesions, mouth pain, sore throat, tongue swelling, throat swelling, other, difficulty swallowing or neck pain Resp Respiratory: No cough, change in phlegm color, chest congestion, excessive phlegm production, hemoptysis, pain on inspiration, shortness of breath, pain with cough, snoring, stridor, wheezing or other Cardio Cardiology: No chest pain at rest, chest pain with exertion, leg pain with exertion, excessive sweating, shortness of breath, dyspnea on exertion, generalized swelling, irregular heart rhythm, lightheadedness, orthopnea, radiating jaw, neck or arm pain, fast heart rate, slow heart rate, palpitations or other Gastro GI: No abdominal pain, belching, bloating, change in bowel habits, change in stool character, coffee ground emesis, constipation, cramping, diarrhea, heartburn, difficulty swallowing, feeling full early, excessive flatus, incontinent of stools, Vomiting blood/hematemesis, blood in stool, loose stools, Black,tarry stools, nausea/dyspepsia, pain with swallowing, vomiting or other Genitourinary-Female: No difficulty urinating, burning urination, painful urination, urinary incontinence, urinary frequency, urinary urgency, urinary hesitancy, urinary retention, blood in urine, Frequent nighttime urination/ nocturia, post void dribbling, suprapubic fullness, side pain, sexual problems, genital lesions, genital itching, hot flashes, abnormal periods, abnormal vaginal bleeding, absent period, painful periods, light periods, heavy periods, difficulty getting , painful intercourse, pelvic pain, vaginal dryness, vaginal odor, Vaginal Itching or other Musc Musculoskeletal: Positive for joint pain; no abnormal walking, back pain, deformity, joint swelling, limited range of motion, loss of height, muscle cramps, muscle weakness, decreased muscle mass, body aches, neck pain, numbness, radiating pain into limb, stiffness, tingling or other Skin Skin: No acne, hair loss, change in hair, nail changes, boil, change in skin color, dry skin, redness, excessive hair growth, yellowing of the skin, lesions, itching, rash, skin pain, skin ulcer, sores, skin swelling, wounds or other Breast Breast: No other Neuro Neurology: No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 Female, 47 years old. Elevated liver enzymes TECHNIQUE: Ultrasound evaluation of the right upper quadrant was performed with real-time and static alvarez-scale imaging. TECHNICAL QUALITY: Adequate. COMPARISON: None. FINDINGS: Liver: The liver measures 17.6 cm. There is increased echogenicity consistent with fatty infiltration. The bile ducts are within normal limits. There is hepatic color flow. The direction of portal flow is hepatopetal. There is no demonstrated mass lesion. Gallbladder: Normal distended gallbladder. The gallbladder wall measures 2.6 mm. There is a negative sonographic Lucas's sign. There is no pericholecystic fluid. There is biliary sludge dependent within the gallbladder. Common Bile Duct (C.B.D.): The common bile duct measures 5.1 mm. Pancreas: Normal size of the head, body and tail of the pancreas. There is increased echogenicity of the pancreas. There is no demonstrated pancreatic mass or cyst. Right Kidney: Normal size of the right kidney. The right kidney measures 13.1 x 6 x 5.1 cm. Normal renal cortex. The right cortex measures 2 cm. There is no demonstrated renal mass or cyst. There is no right hydronephrosis. US/Liver IMPRESSION: Mild gallbladder sludge. Hepatic steatosis and mild hepatomegaly. The pancreas is echogenic consistent with fatty replacement. Electronically Signed: Jean Paul Gupta DO at 13:22 EDT Tel , Service support , CC: Thelma Conti MD; Daniel Ballesteros Dredge Lever Operator: Signed COMPREHENSIVE METABOLIC Collected: 11/25/2017 Status: F Source: [place] 10:11 AM [facility] [place] TYPE CODE TESTS RESULT OUT OF RANGE REFERENCE UNITS LAB L501.0100 74-106 mg/dL High GLU 242 Result Comment: Glucose result greater than or equal to 200 mg/dL suggests DIABETES MELLITUS per A.D.A. criteria. Please note revised GLUCOSE reference range effective 2017. LAB L501.1000 7-18 mg/dL High BUN 20 LAB L501.1100 0.55-1.02 mg/dL Normal CREAT,SERUM 0.70 Result Comment: The validity of the calculated GFR AND GFRAA in patients over 70 years has not been determined. Clinical correlation is essential. LAB L501.1110 >60 mL/min Normal EST GFR 94 Result Comment: Non- GFR Calc LAB L501.1115 >60 mL/min Normal EST GFR - AA 114 Result Comment: GFR Calc LAB L501.1300 10-20 RATIO High BUN/CRE 28.5 LAB L501.1500 6.4-8.2 g/dL T Normal PROT 7.3 LAB L501.1800 3.2-5.0 g/dL Normal ALB 3.7 LAB L501.1950 2.2-4.2 g/dL Normal GLOB 3.6 LAB L501.2000 0.9-2.4 RATIO Normal A/G 1.0 LAB L501.2200 8.5-10.1 mg/dL CA Normal 9.4 LAB L501.4100 15-37 U/L Normal AST 22 LAB L501.4305 45-117 U/L Normal ALK P 105 LAB L501.4405 13-56 U/L Normal ALT 38 LAB L501.4600 0.20-1.00 mg/dL T Normal BILI 0.80 LAB L501.5300 136-145 mmol/L NA Normal 136 LAB L501.5600 3.5-5.1 mmol/L K Normal 4.0 LAB L501.5900 98-107 mmol/L CL Normal 102 LAB L501.6100 21.0-32.0 mmol/L Normal CO2 25.0 LAB L501.6200 5-15 Normal GAP 9 Performed By: #### L500.4050, L505.7010 #### [facility] [address] [place], [place], [address] RHEUMATOID FACTOR Collected: 11/25/2017 Status: F Source: [place] 10:11 AM [facility] [place] TYPE CODE TESTS RESULT OUT OF REFERENCE UNITS RANGE LAB L505.7010 <15 IU/mL High RHEUMATOID FAC 24.0 Performed By: #### L500.4050, L505.7010 #### [facility] [address] [place], [address] CBC W/DIFF, AUTOMATED Collected: 11/25/2017 Status: F Source: [place] 10:11 AM [facility] [place] TYPE CODE TESTS RESULT OUT OF RANGE REFERENCE UNITS LAB L100.1000 4.4-11.0 K/mm3 Normal WBC 10.7 LAB L100.1200 4.2-5.4 M/mm3 Normal RBC 4.55 LAB L100.1300 12.0-15.0 g/dl Normal HGB 14.4 LAB L100.1400 37-47 % Normal HCT 41.4 LAB L100.1500 81-99 fL Normal MCV 91.0 LAB L100.1600 27.0-32.0 pg Normal MCH 31.6 LAB L100.1700 32-36 g/gl Normal MCHC 34.8 LAB L100.1810 11.6-14.6 % Normal RDW CV 13.2 LAB L100.1820 35.1-43.9 fl Normal RDW SD 43.0 LAB L100.1900 150-450 K/mm3 Normal PLT 322 LAB L100.2000 6.2-12.0 fl Normal MPV 9.7 LAB L100.2100 47-70 % High NEUT% 70.2 LAB L100.2200 19-41 % Normal LY% 22.7 LAB L100.2300 0-10 % Normal MONO% 6.1 LAB L100.2400 0-5 % Normal EO% 0.3 LAB L100.2500 0-1 % Normal BASO% 0.2 LAB L100.2550 0.0-0.9 % Normal IM GRAN % 0.500 Result Comment: IG% - Immature Granulocytes (promyelocytes, myelocytes and metamyelocytes) > 1% indicates that a LEFT SHIFT is Present. LAB L100.2620 2.0-7.7 X10 3/uL Normal Absolute Neut 7.5 LAB L100.2720 0.83-4.51 X10 3/ul Normal Absolute Lymph 2.44 Performed By: #### L100.0100 #### [facility] [address] [place] [address]. [place], [address] ANTINUCLEAR ANTIBODIES Collected: 11/25/2017 Status: F Source: LIN[place] DIRECT 10:11 AM [facility] [place] TYPE CODE TESTS RESULT OUT OF RANGE REFERENCE UNITS LAB L3100.5475 Negative Normal Negative SUDHAKAR-DIRECT Result Comment: Performed at: - [facility], [place], [place] [id number] Founder President And Ceo: Abner Milligan PhD, Phone: [phone] Performed By: #### L3100.5475, L3100.9100 #### [facility] (refer to report for specific site) refer to report for address and phone number SJOGREN'S ANTIBODIES Collected: 11/25/2017 Status: F Source: [place] A/B 10:11 AM [facility] [place] TYPE CODE TESTS RESULT OUT OF RANGE REFERENCE UNITS LAB L3100.9200 0.0-0.9 AI Normal Anti-SS-A < 0.2 LAB L3100.9300 0.0-0.9 AI Normal Anti-SS-B < 0.2 Performed By: #### L3100.5475, L3100.9100 #### [facility] (refer to report for specific site) refer to report for address and phone number HEPATITIS B SURFACE Collected: 11/25/2017 Status: F Source: LIN[place] AG 10:11 AM [facility] [place] TYPE CODE TESTS RESULT OUT OF RANGE REFERENCE UNITS LAB L3100.0400 Negative Normal HB Negative SURF AG Result Comment: Performed at: - [facility] [id number] Founder President And Ceo: Abner Milligan PhD, Phone: [phone] Performed at: On License Of [facility] [id number] Founder President And Ceo: [place] Conde PhD, Phone: [phone] Performed By: #### L3100.0390, L3100.0528, L3100.0625, L3410.1400 #### [facility] (refer to report for specific site) refer to report for address and phone number HEP B SURFACE Collected: 11/25/2017 Status: F Source: [place] ANTIBODIES 10:11 AM [facility] [place] TYPE CODE TESTS RESULT OUT OF RANGE REFERENCE UNITS LAB L3100.0528 . Normal Hep B Reactive Samuel AB Result Comment: Non Reactive: Inconsistent with immunity, less than 10 mIU/mL Reactive: Consistent with immunity, greater than 9.9 mIU/mL Performed By: #### L3100.0390, L3100.0528, L3100.0625, L3410.1400 #### [facility] (refer to report for specific site) refer to report for address and phone number HEPATITIS C ANTIBODIES Collected: 11/25/2017 Status: F Source: [place] 10:11 AM [facility] [place] TYPE CODE TESTS RESULT OUT OF RANGE REFERENCE UNITS LAB L3100.0650 0.0-0.9 s/co ratio Normal HEP C AB <0.1 Result Comment: Negative: < 0.8 Indeterminate: 0.8 - 0.9 Positive: > 0.9 The CDC recommends that a positive HCV antibody result be followed up with a HCV Nucleic Acid Amplification test (537971). Performed By: #### L3100.0390, L3100.0528, L3100.0625, L3410.1400 #### [facility] (refer to report for specific site) refer to report for address and phone number HLA B27 Collected: 11/25/2017 Status: F Source: [place] 10:11 AM [facility] [place] TYPE CODE TESTS RESULT OUT OF RANGE REFERENCE UNITS LAB L3410.1500 . Normal HLA Negative B27 Result Comment: HLA-B*27 Negative B27 allele interpretation for all loci based on IMGT/HLA database version 3.27 This test was developed and its performance characteristics determined by [facility]. It has not been cleared or approved by the Food and Drug Administration. [facility] CLIA ID Number [id number] This test was performed using PCR (Polymerase Chain Reaction)/SSOP (Sequence Specific Oligonucleotide Probes) technique. SBT (Sequence Based Typing) and/or SSP (Sequence Specific Primers) may be used as supplemental methods when necessary. Please contact [facility] Customer Service at if you have any questions. Director of [facility] Laboratory Dr [place] Conde, PhD Performed By: #### L3100.0390, L3100.0528, L3100.0625, L3410.1400 #### [facility] (refer to report for specific site) refer to report for address and phone number PELVIS 1 OR 2 VIEWS Observed: 11/25/2017 Status: F Source: [place] 10:10 AM [facility] Imaging Services [address] [place] [address] Pelvis 1 or 2 Views MR#: [id number] Acct: [id number] Name: SPARKLE ALANIS Rep #: [id number] : 1970 F 47 From: Jose Fulton MD PCP: Daniel Ballesteros Status: REG CLI Study: Pelvis 1 or 2 Views Date of Exam: 11/25/17 Exam# [id number] Ordering Dr: Thelma Conti MD STUDY: X-RAY - PELVIS REASON FOR EXAM: Female, 47 years old. Pain, decreased range of motion TECHNIQUE: One view of the pelvis was obtained. COMPARISON: None. FINDINGS: There is a non-specific bowel gas pattern. Normal visualized soft tissue structures. There is narrowing with cortical sclerosis and osteophyte formation of the sacroiliac joint consistent with degenerative osteoarthritic changes. Normal visualized bilateral superior and inferior pubic rami. Normal pubic symphysis. Normal ischial tuberosities. Normal visualized right femoral head. Normal right acetabulum. There is moderate articular joint space narrowing of the right hip. Normal visualized left femoral head. Normal left acetabulum. There is moderate articular joint space narrowing of the left hip. RAD/Pelvis 1 or 2 Views IMPRESSION: Degenerative arthrosis, no demonstrated fracture or aggressive osseous lesion. However, hip and pelvic fractures in patients of this age can be subtle, if there are strong clinical suspicion of a fracture, recommend further evaluation with cross-sectional imaging Electronically Signed: Gerald Fulton MD at 11:04 EDT , Service support , CC: Thelma Conti MD; Daniel Ballesteros Dredge Lever Operator: Signed THYROID STIM HORMONE Collected: 11/01/2017 Status: F Source: [place] (TSH) 8:21 AM [facility] [place] TYPE CODE TESTS RESULT OUT OF RANGE REFERENCE UNITS LAB L501.9520 0.358-3.74 uIU/mL Normal TSH 0.55 Performed By: #### L501.9520, L506.0400 #### [facility] [address] [place], [address] T4 FREE DIRECT Collected: 11/01/2017 Status: F Source: [place] 8:21 AM [facility] [place] TYPE CODE TESTS RESULT OUT OF RANGE REFERENCE UNITS LAB L506.0400 0.76-1.46 ng/dL Normal T4 FREE 1.19 DIRECT Performed By: #### L501.9520, L506.0400 #### [place] [facility] [address] [place], [address] CBC W/DIFF, AUTOMATED Collected: 10/02/2017 Status: F Source: [place] 9:42 AM [facility] [place] TYPE CODE TESTS RESULT OUT OF RANGE REFERENCE UNITS LAB L100.1000 4.4-11.0 K/mm3 Normal WBC 7.9 LAB L100.1200 4.2-5.4 M/mm3 Normal RBC 4.68 LAB L100.1300 12.0-15.0 g/dl Normal HGB 14.7 LAB L100.1400 37-47 % Normal HCT 42.5 LAB L100.1500 81-99 fL Normal MCV 90.8 LAB L100.1600 27.0-32.0 pg Normal MCH 31.4 LAB L100.1700 32-36 g/gl Normal MCHC 34.6 LAB L100.1810 11.6-14.6 % Normal RDW CV 13.1 LAB L100.1820 35.1-43.9 fl Normal RDW SD 43.1 LAB L100.1900 150-450 K/mm3 Normal PLT 310 LAB L100.2000 6.2-12.0 fl Normal MPV 9.7 LAB L100.2100 47-70 % Normal NEUT% 61.2 LAB L100.2200 19-41 % Normal LY% 30.8 LAB L100.2300 0-10 % Normal MONO% 6.5 LAB L100.2400 0-5 % Normal EO% 0.8 LAB L100.2500 0-1 % Normal BASO% 0.3 LAB L100.2550 0.0-0.9 % Normal IM GRAN % 0.400 Result Comment: IG% - Immature Granulocytes (promyelocytes, myelocytes and metamyelocytes) > 1% indicates that a LEFT SHIFT is Present. LAB L100.2620 2.0-7.7 X10 3/uL Normal Absolute Neut 4.8 LAB L100.2720 0.83-4.51 X10 3/ul Normal Absolute Lymph 2.43 Performed By: #### L100.0100, L101.9900 #### [facility] [address] [place], [address] ERYTHROCYTE SED RATE Collected: 10/02/2017 Status: F Source: [place] 9:42 AM [facility] [place] TYPE CODE TESTS RESULT OUT OF RANGE REFERENCE UNITS LAB L102.0000 0-20 mm/hr Normal SED RATE 10 Performed By: #### L100.0100, L101.9900 #### [facility] [address] [place], [address] VITAMIN D,25 HYDROXY Collected: 10/02/2017 Status: F Source: [place] 9:42 AM [facility] [place] TYPE CODE TESTS RESULT OUT OF REFERENCE UNITS RANGE LAB L506.1000 29.95-100.01 ng/mL Low Vitamin D 19.2 25-OH Result Comment: Vitamin D 25(OH) Status Range Deficiency <20 ng/mL (50nmol/L) Insuffciency 20 - 30 ng/mL (50 - 75 nmol/L) Sufficiency 30 - 100 ng/mL (75 - 250 nmol/L) Toxicity >100 ng/mL (>250 nmol/L) Performed By: #### L506.1000 #### [facility] [address] [place], [address] COMPREHENSIVE METABOLIC Collected: 10/02/2017 Status: F Source: [facility] 9:42 AM [facility] [place] TYPE CODE TESTS RESULT OUT OF RANGE REFERENCE UNITS LAB L501.0100 74-106 mg/dL High GLU 205 Result Comment: Glucose result greater than or equal to 200 mg/dL suggests DIABETES MELLITUS per A.D.A. criteria. Please note revised GLUCOSE reference range effective 2017. LAB L501.1000 7-18 mg/dL High BUN 19 LAB L501.1100 0.55-1.02 mg/dL Normal CREAT,SERUM 0.61 Result Comment: The validity of the calculated GFR AND GFRAA in patients over 70 years has not been determined. Clinical correlation is essential. LAB L501.1110 >60 mL/min Normal EST GFR 110 Result Comment: Non- GFR Calc LAB L501.1115 >60 mL/min Normal EST GFR - AA 133 Result Comment: GFR Calc LAB L501.1300 10-20 RATIO High BUN/CRE 30.9 LAB L501.1500 6.4-8.2 g/dL T Normal PROT 7.4 LAB L501.1800 3.2-5.0 g/dL Normal ALB 3.8 LAB L501.1950 2.2-4.2 g/dL Normal GLOB 3.6 LAB L501.2000 0.9-2.4 RATIO Normal A/G 1.1 LAB L501.2200 8.5-10.1 mg/dL CA Normal 8.9 LAB L501.4100 15-37 U/L High AST 41 LAB L501.4305 45-117 U/L Normal ALK P 92 LAB L501.4405 13-56 U/L Normal ALT 55 Result Comment: Please note revised ALT reference range effective 2017. LAB L501.4600 0.20-1.00 mg/dL Normal T BILI 0.80 LAB L501.5300 136-145 mmol/L Normal NA 138 LAB L501.5600 3.5-5.1 mmol/L Normal K 4.1 LAB L501.5900 98-107 mmol/L Normal CL 103 LAB L501.6100 21.0-32.0 mmol/L Normal CO2 24.0 LAB L501.6200 5-15 Normal GAP 11 Performed By: #### L500.4050, L501.6710, L501.9520, L505.7010, L506.0400 #### [facility] [address] [place], [address] CRP Collected: 10/02/2017 Status: F Source: [place] 9:42 AM [facility] [place] TYPE CODE TESTS RESULT OUT OF RANGE REFERENCE UNITS LAB L501.6710 0.0-3.0 mg/L High 15.90 C-REACTIVE PROT Result Comment: C-Reactive Protein (CRP) provides useful information for the diagnosis, therapy and monitoring of inflammatory processes and associated diseases. For the evaluation of Relative Risk for Cardiovascular Disease, a High Sensitivity CRP (HSCRP) should be ordered. Performed By: #### L500.4050, L501.6710, L501.9520, L505.7010, L506.0400 #### [facility] [address] [place], [address] THYROID STIM HORMONE Collected: 10/02/2017 Status: F Source: [place] (TSH) 9:42 AM [facility] [place] [place] TYPE CODE TESTS RESULT OUT OF RANGE REFERENCE UNITS LAB L501.9520 0.358-3.74 uIU/mL Normal TSH 1.95 Performed By: #### L500.4050, L501.6710, L501.9520, L505.7010, L506.0400 #### [facility] [address] [place], [place], [address] RHEUMATOID FACTOR Collected: 10/02/2017 Status: F Source: [place] 9:42 AM [facility] [place] TYPE CODE TESTS RESULT OUT OF REFERENCE UNITS RANGE LAB L505.7010 <15 IU/mL High RHEUMATOID FAC 23.0 Performed By: #### L500.4050, L501.6710, L501.9520, L505.7010, L506.0400 #### [facility] [address] [place], [place], [address] T4 FREE DIRECT Collected: 10/02/2017 Status: F Source: [place] 9:42 AM [facility] [place] [place] TYPE CODE TESTS RESULT OUT OF RANGE REFERENCE UNITS LAB L506.0400 0.76-1.46 ng/dL Normal T4 FREE 0.98 DIRECT Performed By: #### L500.4050, L501.6710, L501.9520, L505.7010, L506.0400 #### [facility] [address] [place], [place], [address] CCP IGG ANTIBODIES Collected: 10/02/2017 Status: F Source: [place] 9:42 AM [facility] [place] [place] TYPE CODE TESTS RESULT OUT OF RANGE REFERENCE UNITS LAB L4600.0100 0-19 units Normal ANTI-CCP 4 [id number] Result Comment: Negative <20 Weak positive 20 - 39 Moderate positive 40 - 59 Strong positive >59 Performed at: [place] [id number] Founder President And Ceo: Myles Gurrola MD, Phone: [phone] Performed By: #### L4600.0100 #### [facility] (refer to report for specific site) refer to report for address and phone number ALLERGIES ALLERGIES DATE TYPE / CODE NAME / CODE REACTION SEVERITY SOURCE 06/30/2018 Drug metformin Unknown Unknown [place] [facility] Allergy/416 HCl/[id number](R Hospital 966549(SNOM XNORM) Repository ED CT) ENCOUNTERS ENCOUNTERS ADMIT/DISCHARGE ACCOUNT ADMITTING ENCOUNTER LOCATION SOURCE NUMBER CLASS 06/30/2018 [id number] Ambulatory [place] 9 [facility] Hospital ing:LAB Repository 06/30/2018/ [id number] Ambulatory BMSBuilding:B [place] 8 7 [facility] Repository 06/27/2018 [id number] Ambulatory [place] 3 [facility] ing:MTLAB Repository 03/10/2018/ [id number] Ambulatory BMSBuilding:B [place] 8 9 [facility] Repository 03/04/2018 [id number] Ambulatory [place] 9 [facility] Hospital ing:MTLAB Repository 02/19/2018 [id number] Amb[place] 4 [facility] ing:LAB.FUTUR Repository E 01/20/2018/ [id number] Ambulatory BMSBuilding:B [place] 8 8 [facility] Repository 12/27/2017/ [id number] Emergency [place] 8 7 [facility] ing:ED Repository 12/17/2017/ [id number] Ambulatory BMSBuilding:B [place] 8 2 [facility] Repository 11/29/2017 [id number] Ambulatory [place] 3 [facility] Hospital ing:OPUS Repository 11/25/2017 [id number] Ambulatory [place] 9 [facility] Hospital ing:MTRAD Repository 11/01/2017 [id number] Ambulatory [place] 5 [facility] Hospital ing:LAB.FUTUR Repository E 10/02/2017 [id number] Ambulatory [place] 9 [facility] ing:BFHLAB Repository PAYERS PAYERS ENCOUNTER GUARANTOR PAYER SUBSCRIBER SOURCE 06/30/2018 SPARKLE Callahan Primary GHANSHYAM Landaverde [place] [id number] Insurance:ANTHEMPolic STINCHCOMBDOB: Community IHRIG y [place]: [id number] [id number] Repository [address]Uwr: (330) Date:3995-59-71CE [phone] () [id number] [place] [address]: 06/30/2018 Secondary NOT GIVENUNK [place] Insurance:SELF PAY [facility] Number: Effective Repository Date:2018-06-30 06/30/2018 SPARKLE Callahan Primary GHANSHYAM Landaverde [place] [id number] Insurance:ANTHEMPolic STINCHCOMBDOB: [facility] IHRIG y Number: [id number] [id number] Repository [address]Mwh: (330) Date:7447-25-01FT [phone] () [id number], [place] [address]SS: 06/30/2018 Secondary NOT GIVENUNK [place] Insurance:SELF PAY [facility] Number: Effective Repository Date:2018-06-30 06/27/2018 SPARKLE Callahan Primary GHANSHYAM Landaverde [place] [id number] Insurance:ANTHEMPolic STINCHCOMBDOB: Community IHRIG y Number: [id number] [id number] Repository [address]Smg: (330) Date:6578-24-85PQ [phone] () [id number], [place] [address]CU: 06/27/2018 Secondary NOT GIVENUNK [place] Insurance:SELF PAY [facility] Number: Effective Repository Date:2018-06-27 03/10/2018 SPARKLE Callahan Primary Ghanshyam Landaverde [place] [id number] Insurance:ANTHEMPolic StinchcombDOB: Community IHRIG y Number: [id number] [id number] Repository [address]Onj: (330) Date:5742-15-42XW [phone] () [id number], [place] [address]DI: 03/10/2018 Secondary NOT GIVENUNK [place] Insurance:SELF PAY [facility] Number: Effective Repository Date:2018-03-10 03/04/2018 SPARKLE Callahan Primary Ghanshyam A [place] [id number] Insurance:ANTHEMPolic StinchcombDOB: Community IHRIG y Number: [id number] [place], [place] [id number] Repository [address]Wxz: (330) Date:5525-00-41YH [phone] () [id number], [place] [address]XI: 03/04/2018 Secondary NOT GIVENUNK [place] Insurance:SELF PAY [facility] Number: Effective Repository Date:2018-03-04 02/19/2018 SPARKLE Callahan Primary Ghanshyam A [place] [id number] Insurance:ANTHEMPolic StinchcombDOB: Community IHRIG y Number: [id number], [place] [id number] Repository [address]Wjr: (330) Date:0694-15-18GZ [phone] () [id number], [place] [address]FY: 02/19/2018 Secondary NOT GIVENUNK [place] Insurance:SELF PAY [facility] Number: Effective Repository Date:2018-01-07 01/20/2018 SPARKLE Callahan Primary Ghanshyam A [place] [id number] Insurance:ANTHEMPolic StinchcombDOB: Community IHRIG y Number: [id number] [place], [place] [id number] Repository [address]Gkf: (330) Date:6852-15-61KH [phone] () [address]AUICZQR, [place] [address]EV: 01/20/2018 Secondary NOT GIVENUNK [place] Insurance:SELF PAY [facility] Number: Effective Repository Date:2018-01-20 12/27/2017 SPARKLE Callahan Primary Ghanshyam A [place] [id number] Insurance:ANTHEMPolic StinchcombDOB: Community IHRIG y Number: [id number] [place], [place] [id number] Repository [address]Bfm: (330) Date:1971-29-07FM [phone] () [id number] [place] [address]FA: 12/27/2017 Secondary NOT GIVENUNK [place] Insurance:SELF PAY [facility] Number: Effective Repository Date:2017-12-27 12/17/2017 SPARKLE Callahan Primary Ghanshyam A [place] [id number] Insurance:ANTHEMPolic StinchcombDOB: Community IHRIG y Number: [id number] [place], [place] [id number] Repository [address]Ffa: (330) Date:2535-46-78KS [phone] () [id number] [place] [address]FJ: 12/17/2017 Secondary NOT GIVENUNK [place] Insurance:SELF PAY [facility] Number: Effective Repository Date:2017-12-17 11/29/2017 SPARKLE Callahan Primary Ghanshyam A [place] [id number] Insurance:ANTHEMPolic StinchcombDOB: Community IHRIG y Number: [id number] [place], [place] [id number] Repository [address]Uaw: (330) Date:[id number] [phone] () [id number] [address]QU: 11/29/2017 Secondary NOT GIVENUNK [place] Insurance:SELF PAY [facility] Number: Effective Repository Date:2017-11-25 11/25/2017 SPARKLE Callahan Primary Ghanshyam A [place] [id number] Insurance:ANTHEMPolic StinchcombDOB: Community IHRIG y [place]: [id number] [id number] Repository [address]Leh: (330) Date:[id number] [phone] () [id number], [place] [address]UI: 11/25/2017 Secondary NOT GIVENUNK [place] Insurance:SELF PAY [facility] Number: Effective Repository Date:2017-11-25 11/01/2017 SPARKLE Callahan Primary Ghanshyam A [place] [id number] Insurance:ANTHEMPolic StinchcombDOB: Community IHRIG y Number: [id number] [id number] Repository [address]Tjf: (330) Date:[id number] [phone] () [id number], [place] [address]LT: 11/01/2017 Secondary NOT GIVENUNK [place] Insurance:SELF PAY [facility] Number: Effective Repository Date:2017-10-04 10/02/2017 SPARKLE Callahan Primary Ghanshyam A [place] [id number] Insurance:ANTHEMPolic StinchcombDOB: Community IHRIG y Number: [id number] [id number] Repository [address]Lru: (330) Date:[id number] [phone] () [id number], [place] [address]IM: 10/02/2017 Secondary NOT GIVENUNK [place] Insurance:SELF PAY [facility] Number: Effective Repository Date:2017-10-02
== END ==
PROVIDERS: Family Provider Family Medicine; PCP Family Medicine; Referring Provider Internal Medicine Rheumatology; Visit Provider Internal Medicine Rheumatology
DX: M05.79 Rheumatoid arthritis with rheumatoid factor of multiple sites without organ or systems involvement (principal); M16.0 Bilateral primary osteoarthritis of hip; K76.0 Fatty (change of) liver, not elsewhere classified; F41.9 Anxiety disorder, unspecified; F32.89 Other specified depressive episodes; I10 Essential (primary) hypertension; E11.9 Type 2 diabetes mellitus without complications; E03.9 Hypothyroidism, unspecified; E78.5 Hyperlipidemia, unspecified; G47.33 Obstructive sleep apnea (adult) (pediatric)
CPT/HCPCS: 36415; 80053; 85025

== ENCOUNTER → 2018-06-30 09:56 | Outpatient (CLI) | payer BC, SELFPAY ==
[2018-06-30 09:08] VITALS: BMI 40.7
[2018-06-30 11:21] LABS: Hemoglobin A1c 6.8 % (4.2-6.3)
--- OUTSIDE RECORDS SUMMARY | 2018-08-23 14:41 | XMS RPT_ITS ---
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 [place] 9 [facility] Hospital ing:LAB Repository 06/30/2018/ [id number] Ambulatory BMSBuilding:B [place] 8 7 [facility] Repository 06/27/2018 [id number] Ambulatory [place] 3 [facility] ing:MTLAB Repository 03/10/2018/ [id number] Ambulatory BMSBuilding:B [place] 8 9 [facility] Repository 03/04/2018 [id number] Ambulatory [place] 9 [facility] Hospital ing:MTLAB Repository 02/19/2018 [id number] Ambulatory [place] 4 [facility] ing:LAB.FUTUR Repository E 01/20/2018/ [id number] Ambulatory BMSBuilding:B [place] 8 8 [facility] Repository 12/27/2017/ [id number] Emergency [place] 8 7 [facility] ing:ED Repository 12/17/2017/ [id number] Ambulatory BMSBuilding:B [place] 8 2 [facility] Repository 11/29/2017 [id number] Ambulatory [place] 3 [facility] Hospital ing:OPUS Repository 11/25/2017 [id number] Ambulatory [place] 9 [facility] Hospital ing:MTRAD Repository 11/01/2017 [id number] Ambulatory [place] 5 [facility] Hospital ing:LAB.FUTUR Repository E 10/02/2017 [id number] Ambulatory [place] 9 [facility] ing:BFHLAB Repository PAYERS PAYERS ENCOUNTER GUARANTOR PAYER SUBSCRIBER SOURCE 06/30/2018 SPARKLE Callahan Primary GHANSHYAM Landaverde [place] [id number] Insurance:ANTHEMPolic STINCHCOMBDOB: Community IHRIG y [place]: [id number], [place] [id number] Repository [address]Cfo: (330) Date:6478-92-20KT [phone] () [id number] [place] [address]KC: 06/30/2018 Secondary NOT GIVENUNK [place] Insurance:SELF PAY [facility] Number: Effective Repository Date:2018-06-30 06/30/2018 SPARKLE Callahan Primary GHANSHYAM L[place] [id number] Insurance:ANTHEMPolic STINCHCOMBDOB: [facility] IHRIG y Number: [id number], [place] [id number] Repository [address]Xma: (330) Date:8877-73-07GC [phone] () [id number], [place] [address]ZG: 06/30/2018 Secondary NOT GIVENUNK [place] Insurance:SELF PAY [facility] Number: Effective Repository Date:2018-06-30 06/27/2018 SPARKLE Callahan Primary GHANSHYAM L[place]de [place] [id number] Insurance:ANTHEMPolic STINCHCOMBDOB: Community IHRIG y Number: [id number], [place] [id number] Repository [address]Jry: (330) Date:2234-49-53KA [phone] () [id number], [place] [address]DR: 06/27/2018 Secondary NOT GIVENUNK [place] Insurance:SELF PAY [facility] Number: Effective Repository Date:2018-06-27 03/10/2018 SPARKLE Callahan Primary Ghanshyam L[place]de [place] [id number] Insurance:ANTHEMPolic StinchcombDOB: Community IHRIG y Number: [id number], [place] [id number] Repository [address]Ddk: (330) Date:1513-61-31LM [phone] () 808[address]RKLCEPL, [place] [address]NX: 03/10/2018 Secondary NOT GIVENUNK [place] Insurance:SELF PAY [facility] Number: Effective Repository Date:2018-03-10 03/04/2018 SPARKLE Callahan Primary Ghanshyam A [place] [id number] Insurance:ANTHEMPolic StinchcombDOB: Community IHRIG y Number: [id number], [place] [id number] Repository [address]Zyv: (330) Date:0151-56-87FC [phone] () 675[address]UXVPZZS, [place] [address]CO: 03/04/2018 Secondary NOT GIVENUNK [place] Insurance:SELF PAY [facility] Number: Effective Repository Date:2018-03-04 02/19/2018 SPARKLE Callahan Primary Ghanshyam A [place] [id number] Insurance:ANTHEMPolic StinchcombDOB: Community IHRIG y Number: [id number], [place] [id number] Repository [address]Jeo: (330) Date:6949-61-18GK [phone] () 502[address]HBYYHGV, [place] [address]FX: 02/19/2018 Secondary NOT GIVENUNK [place] Insurance:SELF PAY [facility] Number: Effective Repository Date:2018-01-07 01/20/2018 SPARKLE Callahan Primary Ghanshyam A [place] [id number] Insurance:ANTHEMPolic StinchcombDOB: Community IHRIG y Number: [id number], [place] [id number] Repository [address]Gdc: (330) Date:9822-20-98LZ [phone] () [id number], [place] [address]QM: 01/20/2018 Secondary NOT GIVENUNK [place] Insurance:SELF PAY [facility] Number: Effective Repository Date:2018-01-20 12/27/2017 SPARKLE Callahan Primary Ghanshyam A [place] [id number] Insurance:ANTHEMPolic StinchcombDOB: Community IHRIG y Number: [id number], [place] [id number] Repository [address]Uqd: (330) Date:1312-36-88LD [phone] () [id number] [place] [address]FH: 12/27/2017 Secondary NOT GIVENUNK [place] Insurance:SELF PAY [facility] Number: Effective Repository Date:2017-12-27 12/17/2017 SPARKLE Callahan Primary Ghanshyam A [place] [id number] Insurance:ANTHEMPolic StinchcombDOB: Community IHRIG y Number: [id number], [place] [id number] Repository [address]Vru: (330) Date:1993-80-27FF [phone] () [id number] [place] [address]LN: 12/17/2017 Secondary NOT GIVENUNK [place] Insurance:SELF PAY [facility] Number: Effective Repository Date:2017-12-17 11/29/2017 SPARKLE Callahan Primary Ghanshyam A [place] [id number] Insurance:ANTHEMPolic StinchcombDOB: Community IHRIG y Number: [id number], [place] [id number] Repository [address]Iqf: (330) Date:6667-66-38HO [phone] () [address]34[address]OZUIARS [place] [address]NR: 11/29/2017 Secondary NOT GIVENUNK [place] Insurance:SELF PAY [facility] Number: Effective Repository Date:2017-11-25 11/25/2017 SPARKLE Callahan Primary Ghanshyam A [place] [id number] Insurance:ANTHEMPolic StinchcombDOB: Community IHRIG y Number: [id number], [place] [id number] Repository [address]Ieq: (330) Date:9231-65-36EJ [phone] () [id number], [place] [address]ID: 11/25/2017 Secondary NOT GIVENUNK [place] Insurance:SELF PAY [facility] Number: Effective Repository Date:2017-11-25 11/01/2017 SPARKLE Callahan Primary Ghanshyam A [place] [id number] Insurance:ANTHEMPolic StinchcombDOB: Community IHRIG y Number: [id number], [place] [id number] Repository [address]Ebj: (330) Date:1916-46-79MF [phone] () [id number], [place] [address]IB: 11/01/2017 Secondary NOT GIVENUNK [place] Insurance:SELF PAY [facility] Number: Effective Repository Date:2017-10-04 10/02/2017 SPARKLE Callahan Primary Ghanshyam A [place] [id number] Insurance:ANTHEMPolic StinchcombDOB: Community IHRIG y Number: [id number], [place] [id number] Repository [address]Wrq: (330) Date:6205-04-64SL [phone] () 777[address]SOSMXFC, [place] [address]DZ: 10/02/2017 Secondary NOT GIVENUNK [place] Insurance:SELF PAY [facility] Number: Effective Repository Date:2017-10-02
== END ==
PROVIDERS: Family Provider Family Medicine; PCP Family Medicine; Referring Provider Nurse Practitioner; Visit Provider Nurse Practitioner
DX: E11.65 Type 2 diabetes mellitus with hyperglycemia (principal)
CPT/HCPCS: 36415; 82306; 83036

== ENCOUNTER → 2018-09-02 09:04 | Outpatient (CLI) | payer BC, SELFPAY ==
[2018-06-30 09:08] VITALS: BMI 40.7
[2018-09-02 10:14] LABS: Absolute Lymphocyte Count 1.94 X10^3/ul (0.83-4.51); Absolute Neutrophil Count 5.4 X10^3/uL (2.0-7.7); Basophil# 0.03 X10^3/uL; Basophil% 0.4 % (0-1); Eosinophil# 0.06 X10^3/uL; Eosinophils% 0.8 % (0-5); Hematocrit 37.5 % (37-47); Hemoglobin 12.2 g/dl (12.0-15.0); Lymphocyte # 1.94 X10^3/ul (4.0); Lymphocyte % 24.4 % (19-41); Mean Corp Hgb Conc 32.5 g/gl (32-36); Mean Corpuscular Hgb 30.3 pg (27.0-32.0); Mean Corpuscular Volume 93.3 fL (81-99); Mean Platelet Vol. 9.4 fl (6.2-12.0); Monocyte# 0.52 X10^3/uL; Monocyte% 6.5 % (0-10); Neutrophil # 5.37 X10^3/uL (2.7-7.7); Neutrophil % 67.5 % (47-70); Platelet Count 286 K/mm3 (150-450); RBC Distribution Width CV 14.6 % (11.6-14.6); RBC Distribution Width SD 49.7 fl (35.1-43.9); Red Blood Count 4.02 M/mm3 (4.2-5.4)
[2018-09-02 10:15] LABS: POSITIVE COUNT NO; POSITIVE DIFFERENTIAL NO; POSITIVE MORPHOLOGY NO
[2018-09-02 10:39] LABS: ALB/GLOB Ratio 1.1 RATIO (0.9-2.4); AST(SGOT) 18 U/L (15-37); Alanine Aminotransfer ALT/SGPT 28 U/L (13-56); Albumin, Serum 3.4 g/dL (3.2-5.0); Alkaline Phosphatase 90 U/L (45-117); Anion Gap 8 (5-15); BUN 20 mg/dL (7-18); BUN/Creat Ratio 29.5 RATIO (10-20); Calcium,Total 8.4 mg/dL (8.5-10.1); Chloride 108 mmol/L (98-107); Creatinine, Serum 0.68 mg/dL (0.55-1.02); EST Glomerular Filtration Rate 98 mL/min (>60); Est Glom Filt Rate - Afr Amer 118 mL/min (>60); Glucose 180 mg/dL (74-106); Potassium 4.2 mmol/L (3.5-5.1); Protein, Total 6.4 g/dL (6.4-8.2); Sodium Level 143 mmol/L (136-145)
== END ==
PROVIDERS: Family Provider Family Medicine; PCP Family Medicine; Referring Provider Internal Medicine Rheumatology; Visit Provider Internal Medicine Rheumatology
DX: M05.79 Rheumatoid arthritis with rheumatoid factor of multiple sites without organ or systems involvement (principal); Z79.899 Other long term (current) drug therapy; M16.0 Bilateral primary osteoarthritis of hip; K76.0 Fatty (change of) liver, not elsewhere classified; F41.9 Anxiety disorder, unspecified; F32.89 Other specified depressive episodes; I10 Essential (primary) hypertension; E11.9 Type 2 diabetes mellitus without complications; E03.9 Hypothyroidism, unspecified; E78.5 Hyperlipidemia, unspecified; G47.33 Obstructive sleep apnea (adult) (pediatric)
CPT/HCPCS: 36415; 80053; 85025

== ENCOUNTER → 2018-09-29 08:21 | Outpatient (CLI) | payer BC, SELFPAY ==
[2018-06-30 09:08] VITALS: BMI 40.7
[2018-09-29 09:04] LABS: Hemoglobin A1c 6.4 % (4.2-6.3)
[2018-09-29 09:32] LABS: Cholesterol 149 mg/dL (200); Free T3 3.1 pg/mL (2.18-3.98); High Density Lipoprotein 59 mg/dL; T4 Free Direct 1.19 ng/dL (0.76-1.46); Triglycerides 81 mg/dL; Very Low Density Lipoprotein 16 mg/dL (5-40)
== END ==
PROVIDERS: Family Provider Family Medicine; PCP Family Medicine; Referring Provider Nurse Practitioner; Visit Provider Nurse Practitioner
DX: E11.65 Type 2 diabetes mellitus with hyperglycemia (principal); I10 Essential (primary) hypertension; E03.9 Hypothyroidism, unspecified; E55.9 Vitamin D deficiency, unspecified
CPT/HCPCS: 36415; 80061; 83036; 84439; 84443; 84481

== ENCOUNTER → 2018-11-24 | Outpatient (CLI) | payer BC, SELFPAY ==
[2018-10-02 09:40] VITALS: BMI 40.7
[2018-11-24 10:03] LABS: Absolute Lymphocyte Count 2.36 X10^3/ul (0.83-4.51); Absolute Neutrophil Count 5.1 X10^3/uL (2.0-7.7); Basophil# 0.03 X10^3/uL; Basophil% 0.4 % (0-1); Eosinophil# 0.13 X10^3/uL; Eosinophils% 1.5 % (0-5); Hematocrit 42.1 % (37-47); Hemoglobin 13.9 g/dl (12.0-15.0); Lymphocyte # 2.36 X10^3/ul (4.0); Lymphocyte % 27.7 % (19-41); Mean Corpuscular Hgb 30.5 pg (27.0-32.0); Mean Corpuscular Volume 92.5 fL (81-99); Mean Platelet Vol. 9.2 fl (6.2-12.0); Monocyte% 10.6 % (0-10); Neutrophil # 5.08 X10^3/uL (2.7-7.7); Neutrophil % 59.6 % (47-70); Platelet Count 307 K/mm3 (150-450); RBC Distribution Width CV 13.9 % (11.6-14.6); RBC Distribution Width SD 46.2 fl (35.1-43.9); Red Blood Count 4.55 M/mm3 (4.2-5.4); White Blood Count 8.5 K/mm3 (4.4-11.0)
[2018-11-24 10:05] LABS: POSITIVE COUNT NO; POSITIVE DIFFERENTIAL NO; POSITIVE MORPHOLOGY NO
[2018-11-24 10:37] LABS: ALB/GLOB Ratio 1.3 RATIO (0.9-2.4); AST(SGOT) 25 U/L (15-37); Alanine Aminotransfer ALT/SGPT 34 U/L (13-56); Alkaline Phosphatase 89 U/L (45-117); Anion Gap 7 (5-15); BUN 24 mg/dL (7-18); BUN/Creat Ratio 36.6 RATIO (10-20); Calcium,Total 9.1 mg/dL (8.5-10.1); Chloride 106 mmol/L (98-107); Creatinine, Serum 0.66 mg/dL (0.55-1.02); EST Glomerular Filtration Rate 101 mL/min (>60); Est Glom Filt Rate - Afr Amer 123 mL/min (>60); Glucose 171 mg/dL (74-106); Potassium 4.2 mmol/L (3.5-5.1); Sodium Level 140 mmol/L (136-145)
== END | disposition home or self-care (01) ==
LOC: LAB 08:39
PROVIDERS: Family Provider Family Medicine; PCP Family Medicine; Referring Provider Internal Medicine Rheumatology; Visit Provider Internal Medicine Rheumatology
DX: M05.79 Rheumatoid arthritis with rheumatoid factor of multiple sites without organ or systems involvement (principal); Z79.899 Other long term (current) drug therapy; M16.0 Bilateral primary osteoarthritis of hip; K76.0 Fatty (change of) liver, not elsewhere classified; F41.9 Anxiety disorder, unspecified
CPT/HCPCS: 36415; 80053; 85025

== ENCOUNTER → 2019-02-18 | Outpatient (CLI) | payer BC, SELFPAY ==
[2018-10-02 09:40] VITALS: BMI 40.7
[2019-02-18 09:39] LABS: Absolute Lymphocyte Count 2.68 X10^3/uL (0.83-4.51); Absolute Neutrophil Count 5.1 X10^3/uL (2.0-7.7); Basophil# 0.04 X10^3/uL; Basophil% 0.5 % (0-1); Eosinophil# 0.08 X10^3/uL; Eosinophils% 0.9 % (0-5); Hematocrit 42.9 % (37-47); Hemoglobin 14.1 g/dL (12.0-15.0); Lymphocyte # 2.68 X10^3/ul (4.0); Lymphocyte % 31.6 % (19-41); Mean Corp Hgb Conc 32.9 g/dL (32-36); Mean Corpuscular Hgb 31.4 pg (27.0-32.0); Mean Corpuscular Volume 95.5 fL (81-99); Mean Platelet Vol. 8.9 fl (6.2-12.0); Monocyte# 0.49 X10^3/uL; Monocyte% 5.8 % (0-10); NRBC Flagged by Analyzer 0 % (0-5); Neutrophil # 5.14 X10^3/uL (2.7-7.7); Neutrophil % 60.7 % (47-70); Platelet Count 315 K/mm3 (150-450); RBC Distribution Width CV 13.8 % (11.6-14.6); RBC Distribution Width SD 48.1 fl (35.1-43.9); Red Blood Count 4.49 M/mm3 (4.2-5.4); White Blood Count 8.5 K/mm3 (4.4-11.0)
[2019-02-18 10:02] LABS: ALB/GLOB Ratio 1.1 RATIO (0.9-2.4); AST(SGOT) 21 U/L (15-37); Alanine Aminotransfer ALT/SGPT 33 U/L (13-56); Albumin, Serum 3.7 g/dL (3.2-5.0); Alkaline Phosphatase 109 U/L (45-117); Anion Gap 5 (5-15); BUN 14 mg/dL (7-18); BUN/Creat Ratio 18.7 RATIO (10-20); Calcium,Total 8.6 mg/dL (8.5-10.1); Chloride 106 mmol/L (98-107); Creatinine, Serum 0.75 mg/dL (0.55-1.02); EST Glomerular Filtration Rate 87 mL/min (>60); Est Glom Filt Rate - Afr Amer 106 mL/min (>60); Globulin 3.4 g/dL (2.2-4.2); Glucose 200 mg/dL (74-106); Potassium 4.3 mmol/L (3.5-5.1); Protein, Total 7.1 g/dL (6.4-8.2); Sodium Level 137 mmol/L (136-145)
== END | disposition home or self-care (01) ==
PROVIDERS: Family Provider Family Medicine; PCP Family Medicine; Referring Provider Internal Medicine Rheumatology; Visit Provider Internal Medicine Rheumatology
DX: M05.79 Rheumatoid arthritis with rheumatoid factor of multiple sites without organ or systems involvement (principal); Z79.899 Other long term (current) drug therapy; M16.0 Bilateral primary osteoarthritis of hip
CPT/HCPCS: 36415; 80053; 85025

== ENCOUNTER → 2019-05-06 10:11 | Outpatient (CLI) | payer BC, SELFPAY ==
[2018-10-02 09:40] VITALS: BMI 40.7
[2019-05-06 11:20] LABS: Absolute Lymphocyte Count 2.21 X10^3/uL (0.83-4.51); Absolute Neutrophil Count 4.2 X10^3/uL (2.0-7.7); Basophil# 0.04 X10^3/uL; Basophil% 0.6 % (0-1); Eosinophil# 0.08 X10^3/uL; Eosinophils% 1.1 % (0-5); Hematocrit 42.7 % (37-47); Hemoglobin 14.2 g/dL (12.0-15.0); Lymphocyte # 2.21 X10^3/ul (4.0); Lymphocyte % 31.5 % (19-41); Mean Corp Hgb Conc 33.3 g/dL (32-36); Mean Corpuscular Hgb 31.8 pg (27.0-32.0); Mean Corpuscular Volume 95.7 fL (81-99); Mean Platelet Vol. 9.6 fl (6.2-12.0); Monocyte% 7.1 % (0-10); NRBC Flagged by Analyzer 0 % (0-5); Neutrophil # 4.15 X10^3/uL (2.7-7.7); Neutrophil % 59.3 % (47-70); Platelet Count 349 K/mm3 (150-450); RBC Distribution Width CV 13.2 % (11.6-14.6); RBC Distribution Width SD 46.5 fl (35.1-43.9); Red Blood Count 4.46 M/mm3 (4.2-5.4)
[2019-05-06 11:54] LABS: ALB/GLOB Ratio 1.4 RATIO (0.9-2.4); AST(SGOT) 30 U/L (15-37); Alanine Aminotransfer ALT/SGPT 44 U/L (13-56); Albumin, Serum 4.1 g/dL (3.2-5.0); Alkaline Phosphatase 95 U/L (45-117); Anion Gap 9 (5-15); BUN 15 mg/dL (7-18); BUN/Creat Ratio 23.2 RATIO (10-20); Calcium,Total 9.2 mg/dL (8.5-10.1); Chloride 108 mmol/L (98-107); Creatinine, Serum 0.65 mg/dL (0.55-1.02); EST Glomerular Filtration Rate 103 mL/min (>60); Est Glom Filt Rate - Afr Amer 125 mL/min (>60); Glucose 55 mg/dL (74-106); Potassium 4.1 mmol/L (3.5-5.1); Protein, Total 7.1 g/dL (6.4-8.2); Sodium Level 143 mmol/L (136-145)
== END ==
PROVIDERS: Family Provider Family Medicine; PCP Family Medicine; Referring Provider Internal Medicine Rheumatology; Visit Provider Internal Medicine Rheumatology
DX: M05.79 Rheumatoid arthritis with rheumatoid factor of multiple sites without organ or systems involvement (principal); Z79.899 Other long term (current) drug therapy; M16.0 Bilateral primary osteoarthritis of hip; K76.0 Fatty (change of) liver, not elsewhere classified; F41.9 Anxiety disorder, unspecified; F32.89 Other specified depressive episodes; I10 Essential (primary) hypertension; E11.9 Type 2 diabetes mellitus without complications; E03.9 Hypothyroidism, unspecified; E78.5 Hyperlipidemia, unspecified; G47.33 Obstructive sleep apnea (adult) (pediatric)
CPT/HCPCS: 36415; 80053; 85025

== ENCOUNTER → 2019-05-27 08:58 | Outpatient (CLI) | payer BC, SELFPAY ==
[2018-10-02 09:40] VITALS: BMI 40.7
[2019-05-27 10:24] LABS: Absolute Lymphocyte Count 2.19 X10^3/uL (0.83-4.51); Absolute Neutrophil Count 5.2 X10^3/uL (2.0-7.7); Basophil# 0.05 X10^3/uL; Basophil% 0.6 % (0-1); Eosinophil# 0.06 X10^3/uL; Eosinophils% 0.7 % (0-5); Hematocrit 42.3 % (37-47); Hemoglobin 13.8 g/dL (12.0-15.0); Lymphocyte # 2.19 X10^3/ul (4.0); Lymphocyte % 26.3 % (19-41); Mean Corp Hgb Conc 32.6 g/dL (32-36); Mean Corpuscular Hgb 31.7 pg (27.0-32.0); Mean Platelet Vol. 9.8 fl (6.2-12.0); Monocyte# 0.75 X10^3/uL; NRBC Flagged by Analyzer 0 % (0-5); Neutrophil # 5.24 X10^3/uL (2.7-7.7); Platelet Count 306 K/mm3 (150-450); RBC Distribution Width CV 13.3 % (11.6-14.6); RBC Distribution Width SD 47.4 fl (35.1-43.9); Red Blood Count 4.36 M/mm3 (4.2-5.4); White Blood Count 8.3 K/mm3 (4.4-11.0)
[2019-05-27 10:52] LABS: Microalbumin,Random Urine 7.6 mg/L (NO RANGE EST.)
[2019-05-27 10:59] LABS: Vitamin D,25 Hydroxy 66.8 ng/mL (29.95-100.01)
[2019-05-27 11:06] LABS: ALB/GLOB Ratio 1.1 RATIO (0.9-2.4); AST(SGOT) 14 U/L (15-37); Alanine Aminotransfer ALT/SGPT 35 U/L (13-56); Albumin, Serum 3.9 g/dL (3.2-5.0); Alkaline Phosphatase 96 U/L (45-117); Anion Gap 5 (5-15); BUN 23 mg/dL (7-18); BUN/Creat Ratio 31.2 RATIO (10-20); Calcium,Total 9.2 mg/dL (8.5-10.1); Chloride 106 mmol/L (98-107); Cholesterol 145 mg/dL (200); Creatinine, Serum 0.74 mg/dL (0.55-1.02); EST Glomerular Filtration Rate 88 mL/min (>60); Est Glom Filt Rate - Afr Amer 107 mL/min (>60); Globulin 3.4 g/dL (2.2-4.2); Glucose 120 mg/dL (74-106); High Density Lipoprotein 58 mg/dL; Potassium 4.8 mmol/L (3.5-5.1); Protein, Total 7.3 g/dL (6.4-8.2); Sodium Level 141 mmol/L (136-145); T4 Free Direct 1.01 ng/dL (0.76-1.46); Thyroid Stim Hormone (TSH) 0.77 uIU/mL (0.358-3.74); Triglycerides 100 mg/dL; Very Low Density Lipoprotein 20 mg/dL (5-40)
== END ==
PROVIDERS: Family Provider Family Medicine; PCP Family Medicine; Referring Provider Nurse Practitioner; Visit Provider Nurse Practitioner
DX: E11.9 Type 2 diabetes mellitus without complications (principal); E55.9 Vitamin D deficiency, unspecified; E03.9 Hypothyroidism, unspecified; I10 Essential (primary) hypertension
CPT/HCPCS: 36415; 80053; 80061; 82043; 82306; 83036; 84439; 84443; 85025

== ENCOUNTER → 2019-08-06 11:42 | Outpatient (CLI) | payer BC, SELFPAY ==
[2018-10-02 09:40] VITALS: BMI 40.7
[2019-08-06 12:49] LABS: ALB/GLOB Ratio 1.2 RATIO (0.9-2.4); AST(SGOT) 21 U/L (15-37); Alanine Aminotransfer ALT/SGPT 43 U/L (13-56); Albumin, Serum 4.1 g/dL (3.2-5.0); Alkaline Phosphatase 91 U/L (45-117); Anion Gap 4 (5-15); BUN 22 mg/dL (7-18); BUN/Creat Ratio 25.4 RATIO (10-20); Calcium,Total 9.8 mg/dL (8.5-10.1); Chloride 107 mmol/L (98-107); Creatinine, Serum 0.86 mg/dL (0.55-1.02); EST Glomerular Filtration Rate 74 mL/min (>60); Est Glom Filt Rate - Afr Amer 89 mL/min (>60); Globulin 3.3 g/dL (2.2-4.2); Glucose 93 mg/dL (74-106); Protein, Total 7.4 g/dL (6.4-8.2); Sodium Level 140 mmol/L (136-145)
[2019-08-06 12:50] LABS: Absolute Lymphocyte Count 2.44 X10^3/uL (0.83-4.51); Absolute Neutrophil Count 4.6 X10^3/uL (2.0-7.7); Basophil# 0.04 X10^3/uL; Basophil% 0.5 % (0-1); Eosinophil# 0.05 X10^3/uL; Eosinophils% 0.7 % (0-5); Hematocrit 41.9 % (37-47); Hemoglobin 13.7 g/dL (12.0-15.0); Lymphocyte # 2.44 X10^3/ul (4.0); Lymphocyte % 31.9 % (19-41); Mean Corp Hgb Conc 32.7 g/dL (32-36); Mean Corpuscular Hgb 31.4 pg (27.0-32.0); Mean Corpuscular Volume 96.1 fL (81-99); Mean Platelet Vol. 9.5 fl (6.2-12.0); Monocyte# 0.51 X10^3/uL; Monocyte% 6.7 % (0-10); NRBC Flagged by Analyzer 0 % (0-5); Neutrophil # 4.59 X10^3/uL (2.7-7.7); Neutrophil % 59.9 % (47-70); Platelet Count 291 K/mm3 (150-450); RBC Distribution Width CV 13.4 % (11.6-14.6); RBC Distribution Width SD 47.6 fl (35.1-43.9); Red Blood Count 4.36 M/mm3 (4.2-5.4); White Blood Count 7.7 K/mm3 (4.4-11.0)
== END ==
PROVIDERS: Family Provider Family Medicine; PCP Family Medicine; Referring Provider Internal Medicine Rheumatology; Visit Provider Internal Medicine Rheumatology
DX: M05.79 Rheumatoid arthritis with rheumatoid factor of multiple sites without organ or systems involvement (principal); Z79.899 Other long term (current) drug therapy; M16.0 Bilateral primary osteoarthritis of hip; K76.0 Fatty (change of) liver, not elsewhere classified; F41.9 Anxiety disorder, unspecified; F32.89 Other specified depressive episodes; I10 Essential (primary) hypertension; E11.9 Type 2 diabetes mellitus without complications; E03.9 Hypothyroidism, unspecified; E78.5 Hyperlipidemia, unspecified; G47.33 Obstructive sleep apnea (adult) (pediatric)
CPT/HCPCS: 36415; 80053; 85025

== ENCOUNTER → 2019-08-25 09:24 | Outpatient (CLI) | payer BC, SELFPAY ==
[2018-10-02 09:40] VITALS: BMI 40.7
[2019-08-25 11:29] LABS: Hemoglobin A1c 6.6 % (4.2-6.3)
[2019-08-25 11:31] LABS: Microalbumin,Random Urine 33.2 mg/L (NO RANGE EST.); Microalbumin:Creatinine Ratio 15.7 mg/g CRE (<30 mg/g CRE)
[2019-08-25 11:49] LABS: ALB/GLOB Ratio 1.3 RATIO (0.9-2.4); AST(SGOT) 23 U/L (15-37); Alanine Aminotransfer ALT/SGPT 47 U/L (13-56); Albumin, Serum 4.2 g/dL (3.2-5.0); Alkaline Phosphatase 89 U/L (45-117); Anion Gap 5 (5-15); BUN 22 mg/dL (7-18); BUN/Creat Ratio 28.8 RATIO (10-20); Calcium,Total 9.3 mg/dL (8.5-10.1); Chloride 104 mmol/L (98-107); Cholesterol 134 mg/dL (200); Creatinine, Serum 0.76 mg/dL (0.55-1.02); EST Glomerular Filtration Rate 85 mL/min (>60); Est Glom Filt Rate - Afr Amer 103 mL/min (>60); Globulin 3.2 g/dL (2.2-4.2); Glucose 161 mg/dL (74-106); High Density Lipoprotein 62 mg/dL; Potassium 4.2 mmol/L (3.5-5.1); Protein, Total 7.4 g/dL (6.4-8.2); Sodium Level 138 mmol/L (136-145); Triglycerides 135 mg/dL; Very Low Density Lipoprotein 27 mg/dL (5-40)
== END ==
PROVIDERS: PCP Family Medicine; Referring Provider Nurse Practitioner; Visit Provider Nurse Practitioner
DX: E11.9 Type 2 diabetes mellitus without complications (principal)
CPT/HCPCS: 36415; 80053; 80061; 82043; 82570; 83036

== ENCOUNTER → 2019-10-15 09:17 | Outpatient (CLI) | payer BC, SELFPAY ==
[2018-10-02 09:40] VITALS: BMI 40.7
[2019-10-15 10:32] LABS: Absolute Lymphocyte Count 2.39 X10^3/uL (0.83-4.51); Absolute Neutrophil Count 3.9 X10^3/uL (2.0-7.7); Basophil# 0.03 X10^3/uL; Basophil% 0.4 % (0-1); Eosinophil# 0.05 X10^3/uL; Eosinophils% 0.7 % (0-5); Hematocrit 42.1 % (37-47); Hemoglobin 14.2 g/dL (12.0-15.0); Lymphocyte # 2.39 X10^3/ul (4.0); Mean Corp Hgb Conc 33.7 g/dL (32-36); Mean Corpuscular Hgb 32.7 pg (27.0-32.0); Mean Platelet Vol. 9.1 fl (6.2-12.0); Monocyte# 0.47 X10^3/uL; Monocyte% 6.9 % (0-10); NRBC Flagged by Analyzer 0 % (0-5); Neutrophil # 3.88 X10^3/uL (2.7-7.7); Neutrophil % 56.9 % (47-70); Platelet Count 287 K/mm3 (150-450); RBC Distribution Width CV 13.3 % (11.6-14.6); RBC Distribution Width SD 47.5 fl (35.1-43.9); Red Blood Count 4.34 M/mm3 (4.2-5.4); White Blood Count 6.8 K/mm3 (4.4-11.0)
[2019-10-15 11:26] LABS: ALB/GLOB Ratio 1.2 RATIO (0.9-2.4); AST(SGOT) 24 U/L (15-37); Alanine Aminotransfer ALT/SGPT 46 U/L (13-56); Albumin, Serum 4.1 g/dL (3.2-5.0); Alkaline Phosphatase 95 U/L (45-117); Anion Gap 6 (5-15); BUN 24 mg/dL (7-18); BUN/Creat Ratio 30.2 RATIO (10-20); Chloride 106 mmol/L (98-107); Creatinine, Serum 0.79 mg/dL (0.55-1.02); EST Glomerular Filtration Rate 81 mL/min (>60); Est Glom Filt Rate - Afr Amer 98 mL/min (>60); Globulin 3.3 g/dL (2.2-4.2); Glucose 179 mg/dL (74-106); Potassium 4.2 mmol/L (3.5-5.1); Protein, Total 7.4 g/dL (6.4-8.2); Sodium Level 139 mmol/L (136-145)
== END ==
PROVIDERS: PCP Family Medicine; Referring Provider Internal Medicine Rheumatology; Visit Provider Internal Medicine Rheumatology
DX: M05.79 Rheumatoid arthritis with rheumatoid factor of multiple sites without organ or systems involvement (principal); Z79.899 Other long term (current) drug therapy; M16.0 Bilateral primary osteoarthritis of hip; K76.0 Fatty (change of) liver, not elsewhere classified; F41.9 Anxiety disorder, unspecified; F32.89 Other specified depressive episodes; I10 Essential (primary) hypertension; E11.9 Type 2 diabetes mellitus without complications; E03.9 Hypothyroidism, unspecified; E78.5 Hyperlipidemia, unspecified; G47.33 Obstructive sleep apnea (adult) (pediatric)
CPT/HCPCS: 36415; 80053; 85025

== ENCOUNTER → 2020-01-15 09:29 | Outpatient (CLI) | payer BC, SELFPAY ==
[2018-10-02 09:40] VITALS: BMI 40.7
[2019-11-10 11:20] VITALS: BMI 40.7
[2020-01-15 12:17] LABS: Absolute Neutrophil Count 4.7 X10^3/uL (2.0-7.7); Basophil# 0.03 X10^3/uL; Basophil% 0.4 % (0-1); Eosinophil# 0.05 X10^3/uL; Eosinophils% 0.7 % (0-5); Hematocrit 42.5 % (37-47); Hemoglobin 13.9 g/dL (12.0-15.0); Lymphocyte % 30.9 % (19-41); Mean Corp Hgb Conc 32.7 g/dL (32-36); Mean Corpuscular Hgb 33.1 pg (27.0-32.0); Mean Corpuscular Volume 101.2 fL (81-99); Mean Platelet Vol. 9.7 fl (6.2-12.0); Monocyte# 0.35 X10^3/uL; Monocyte% 4.7 % (0-10); NRBC Flagged by Analyzer 0 % (0-5); Neutrophil # 4.69 X10^3/uL (2.7-7.7); Neutrophil % 62.9 % (47-70); Platelet Count 283 K/mm3 (150-450); RBC Distribution Width CV 13.5 % (11.6-14.6); RBC Distribution Width SD 49.3 fl (35.1-43.9); White Blood Count 7.5 K/mm3 (4.4-11.0)
[2020-01-15 12:55] LABS: ALB/GLOB Ratio 1.2 RATIO (0.9-2.4); AST(SGOT) 19 U/L (15-37); Alanine Aminotransfer ALT/SGPT 42 U/L (13-56); Albumin, Serum 4.2 g/dL (3.2-5.0); Alkaline Phosphatase 102 U/L (45-117); Anion Gap 10 (5-15); BUN 26 mg/dL (7-18); BUN/Creat Ratio 32.5 RATIO (10-20); Calcium,Total 9.7 mg/dL (8.5-10.1); Chloride 105 mmol/L (98-107); EST Glomerular Filtration Rate 80 mL/min (>60); Est Glom Filt Rate - Afr Amer 97 mL/min (>60); Globulin 3.4 g/dL (2.2-4.2); Glucose 238 mg/dL (74-106); Potassium 4.2 mmol/L (3.5-5.1); Protein, Total 7.6 g/dL (6.4-8.2); Sodium Level 140 mmol/L (136-145)
== END ==
PROVIDERS: PCP Family Medicine; Referring Provider Internal Medicine Rheumatology; Visit Provider Internal Medicine Rheumatology
DX: M05.741 Rheumatoid arthritis with rheumatoid factor of right hand without organ or systems involvement (principal); M16.0 Bilateral primary osteoarthritis of hip; K76.0 Fatty (change of) liver, not elsewhere classified; F41.9 Anxiety disorder, unspecified; F32.89 Other specified depressive episodes; I10 Essential (primary) hypertension; E11.9 Type 2 diabetes mellitus without complications; E03.9 Hypothyroidism, unspecified; E78.5 Hyperlipidemia, unspecified; G47.33 Obstructive sleep apnea (adult) (pediatric); Z79.899 Other long term (current) drug therapy
CPT/HCPCS: 36415; 80053; 85025

== ENCOUNTER → 2020-04-14 08:28 | Outpatient (CLI) | payer BC, SELFPAY ==
[2020-02-19 14:34] VITALS: BMI 40.7
[2020-04-14 10:07] LABS: Absolute Lymphocyte Count 1.76 X10^3/uL (0.83-4.51); Absolute Neutrophil Count 4.9 X10^3/uL (2.0-7.7); Basophil# 0.02 X10^3/uL; Basophil% 0.3 % (0-1); Eosinophil# 0.03 X10^3/uL; Eosinophils% 0.4 % (0-5); Hematocrit 38.5 % (37-47); Hemoglobin 12.6 g/dL (12.0-15.0); Lymphocyte # 1.76 X10^3/ul (4.0); Lymphocyte % 25.3 % (19-41); Mean Corp Hgb Conc 32.7 g/dL (32-36); Mean Corpuscular Hgb 32.2 pg (27.0-32.0); Mean Corpuscular Volume 98.5 fL (81-99); Mean Platelet Vol. 9.4 fl (6.2-12.0); Monocyte# 0.28 X10^3/uL; NRBC Flagged by Analyzer 0 % (0-5); Neutrophil # 4.85 X10^3/uL (2.7-7.7); Neutrophil % 69.6 % (47-70); Platelet Count 313 K/mm3 (150-450); RBC Distribution Width CV 13.3 % (11.6-14.6); RBC Distribution Width SD 47.8 fl (35.1-43.9); Red Blood Count 3.91 M/mm3 (4.2-5.4)
[2020-04-14 10:22] LABS: Vitamin D,25 Hydroxy 53.2 ng/mL
[2020-04-14 10:37] LABS: ALB/GLOB Ratio 1.2 RATIO (0.9-2.4); AST(SGOT) 22 U/L (15-37); Alanine Aminotransfer ALT/SGPT 43 U/L (13-56); Albumin, Serum 3.7 g/dL (3.2-5.0); Alkaline Phosphatase 120 U/L (45-117); Anion Gap 7 (5-15); BUN 16 mg/dL (7-18); BUN/Creat Ratio 21.2 RATIO (10-20); Calcium,Total 9.1 mg/dL (8.5-10.1); Chloride 106 mmol/L (98-107); Creatinine, Serum 0.75 mg/dL (0.55-1.02); EST Glomerular Filtration Rate 86 mL/min (>60); Est Glom Filt Rate - Afr Amer 104 mL/min (>60); Globulin 3.2 g/dL (2.2-4.2); Glucose 211 mg/dL (74-106); Potassium 3.9 mmol/L (3.5-5.1); Protein, Total 6.9 g/dL (6.4-8.2); Sodium Level 139 mmol/L (136-145)
== END ==
PROVIDERS: Internal Medicine Endocrinology, Diabetes & Metabolism; PCP Family Medicine; Referring Provider Internal Medicine Rheumatology; Visit Provider Internal Medicine Rheumatology
DX: M05.79 Rheumatoid arthritis with rheumatoid factor of multiple sites without organ or systems involvement (principal); Z79.899 Other long term (current) drug therapy; M16.0 Bilateral primary osteoarthritis of hip; K76.0 Fatty (change of) liver, not elsewhere classified; F41.9 Anxiety disorder, unspecified; F32.89 Other specified depressive episodes; I10 Essential (primary) hypertension; E11.9 Type 2 diabetes mellitus without complications; E03.9 Hypothyroidism, unspecified; E78.5 Hyperlipidemia, unspecified; G47.33 Obstructive sleep apnea (adult) (pediatric)
CPT/HCPCS: 36415; 80053; 82306; 85025

== ENCOUNTER → 2020-06-29 10:23 | Outpatient (CLI) | payer BC, SELFPAY ==
[2020-05-12 09:19] VITALS: BMI 48.9
[2020-06-29 12:41] LABS: Absolute Lymphocyte Count 1.92 X10^3/uL (0.83-4.51); Absolute Neutrophil Count 4.5 X10^3/uL (2.0-7.7); Basophil# 0.04 X10^3/uL; Basophil% 0.6 % (0-1); Eosinophil# 0.08 X10^3/uL; Eosinophils% 1.2 % (0-5); Hematocrit 42.3 % (37-47); Hemoglobin 13.3 g/dL (12.0-15.0); Lymphocyte # 1.92 X10^3/ul (4.0); Mean Corp Hgb Conc 31.4 g/dL (32-36); Mean Corpuscular Hgb 30.9 pg (27.0-32.0); Mean Corpuscular Volume 98.4 fL (81-99); Mean Platelet Vol. 9.3 fl (6.2-12.0); Monocyte# 0.33 X10^3/uL; Monocyte% 4.8 % (0-10); NRBC Flagged by Analyzer 0 % (0-5); Neutrophil # 4.45 X10^3/uL (2.7-7.7); Neutrophil % 64.8 % (47-70); Platelet Count 312 K/mm3 (150-450); RBC Distribution Width CV 13.4 % (11.6-14.6); RBC Distribution Width SD 48.8 fl (35.1-43.9); White Blood Count 6.9 K/mm3 (4.4-11.0)
[2020-06-29 12:48] LABS: ALB/GLOB Ratio 1.1 RATIO (0.9-2.4); AST(SGOT) 40 U/L (15-37); Alanine Aminotransfer ALT/SGPT 89 U/L (13-56); Albumin, Serum 3.5 g/dL (3.2-5.0); Alkaline Phosphatase 131 U/L (45-117); Anion Gap 6 (5-15); BUN 17 mg/dL (7-18); BUN/Creat Ratio 21.7 RATIO (10-20); Calcium,Total 9.1 mg/dL (8.5-10.1); Chloride 108 mmol/L (98-107); Creatinine, Serum 0.78 mg/dL (0.55-1.02); EST Glomerular Filtration Rate 82 mL/min (>60); Est Glom Filt Rate - Afr Amer 99 mL/min (>60); Globulin 3.3 g/dL (2.2-4.2); Glucose 201 mg/dL (74-106); Potassium 3.9 mmol/L (3.5-5.1); Protein, Total 6.8 g/dL (6.4-8.2); Sodium Level 140 mmol/L (136-145)
== END ==
PROVIDERS: PCP Family Medicine; Referring Provider Internal Medicine Rheumatology; Visit Provider Internal Medicine Rheumatology
DX: M05.79 Rheumatoid arthritis with rheumatoid factor of multiple sites without organ or systems involvement (principal); Z79.899 Other long term (current) drug therapy; M16.0 Bilateral primary osteoarthritis of hip; K76.0 Fatty (change of) liver, not elsewhere classified; F41.9 Anxiety disorder, unspecified; F32.89 Other specified depressive episodes; I10 Essential (primary) hypertension; E11.9 Type 2 diabetes mellitus without complications; E03.9 Hypothyroidism, unspecified; E78.5 Hyperlipidemia, unspecified; G47.33 Obstructive sleep apnea (adult) (pediatric)
CPT/HCPCS: 36415; 80053; 85025

== ENCOUNTER → 2020-07-08 13:00 | Outpatient (CLI) | payer BC, SELFPAY ==
[2020-05-12 09:19] VITALS: BMI 48.9
[2020-07-08 15:46] LABS: Absolute Lymphocyte Count 1.26 X10^3/uL (0.83-4.51); Absolute Neutrophil Count 4.9 X10^3/uL (2.0-7.7); Basophil# 0.04 X10^3/uL; Basophil% 0.6 % (0-1); Eosinophil# 0.08 X10^3/uL; Eosinophils% 1.2 % (0-5); Hematocrit 41.8 % (37-47); Hemoglobin 13.5 g/dL (12.0-15.0); Lymphocyte # 1.26 X10^3/ul (4.0); Lymphocyte % 18.6 % (19-41); Mean Corp Hgb Conc 32.3 g/dL (32-36); Mean Corpuscular Hgb 31.1 pg (27.0-32.0); Mean Corpuscular Volume 96.3 fL (81-99); Mean Platelet Vol. 9.3 fl (6.2-12.0); Monocyte# 0.51 X10^3/uL; Monocyte% 7.5 % (0-10); NRBC Flagged by Analyzer 0 % (0-5); Neutrophil # 4.85 X10^3/uL (2.7-7.7); Neutrophil % 71.4 % (47-70); Platelet Count 291 K/mm3 (150-450); RBC Distribution Width SD 46.4 fl (35.1-43.9); Red Blood Count 4.34 M/mm3 (4.2-5.4); White Blood Count 6.8 K/mm3 (4.4-11.0)
[2020-07-08 16:18] LABS: ALB/GLOB Ratio 1.2 RATIO (0.9-2.4); AST(SGOT) 54 U/L (15-37); Alanine Aminotransfer ALT/SGPT 67 U/L (13-56); Albumin, Serum 3.8 g/dL (3.2-5.0); Alkaline Phosphatase 128 U/L (45-117); Anion Gap 5 (5-15); BUN 18 mg/dL (7-18); BUN/Creat Ratio 22.7 RATIO (10-20); Calcium,Total 9.2 mg/dL (8.5-10.1); Chloride 107 mmol/L (98-107); Creatinine, Serum 0.79 mg/dL (0.55-1.02); EST Glomerular Filtration Rate 81 mL/min (>60); Est Glom Filt Rate - Afr Amer 98 mL/min (>60); Globulin 3.3 g/dL (2.2-4.2); Glucose 156 mg/dL (74-106); Potassium 4.3 mmol/L (3.5-5.1); Protein, Total 7.1 g/dL (6.4-8.2); Sodium Level 141 mmol/L (136-145); T4 Free Direct 1.07 ng/dL (0.76-1.46); Thyroid Stim Hormone (TSH) 0.76 uIU/mL (0.358-3.74)
== END ==
PROVIDERS: PCP Family Medicine; Visit Provider Family Medicine
DX: R79.89 Other specified abnormal findings of blood chemistry (principal); R00.0 Tachycardia, unspecified; E03.9 Hypothyroidism, unspecified
CPT/HCPCS: 36415; 80053; 84439; 84443; 85025

== ENCOUNTER → 2020-07-11 17:20 | Outpatient (CLI) | payer BC, SELFPAY ==
[2020-05-12 09:19] VITALS: BMI 48.9
== END ==
PROVIDERS: PCP Family Medicine; Referring Provider Family Medicine; Visit Provider Family Medicine
DX: U07.1 COVID-19 (principal)
CPT/HCPCS: 87635; C9803; U0003

== ENCOUNTER → 2020-08-15 08:46 | Outpatient (CLI) | payer OTHER, SELFPAY ==
[2020-05-12 09:19] VITALS: BMI 48.9
[2020-08-15 12:55] LABS: Absolute Lymphocyte Count 2.22 X10^3/uL (0.83-4.51); Basophil# 0.07 X10^3/uL; Basophil% 0.9 % (0-1); Eosinophil# 0.15 X10^3/uL; Eosinophils% 1.9 % (0-5); Hematocrit 41.8 % (37-47); Hemoglobin 13.2 g/dL (12.0-15.0); Lymphocyte # 2.22 X10^3/ul (4.0); Lymphocyte % 27.5 % (19-41); Mean Corp Hgb Conc 31.6 g/dL (32-36); Mean Corpuscular Hgb 30.6 pg (27.0-32.0); Mean Platelet Vol. 9.4 fl (6.2-12.0); Monocyte# 0.51 X10^3/uL; Monocyte% 6.3 % (0-10); NRBC Flagged by Analyzer 0 % (0-5); Neutrophil # 5.01 X10^3/uL (2.7-7.7); Platelet Count 276 K/mm3 (150-450); RBC Distribution Width CV 14.3 % (11.6-14.6); RBC Distribution Width SD 51.6 fl (35.1-43.9); Red Blood Count 4.31 M/mm3 (4.2-5.4); White Blood Count 8.1 K/mm3 (4.4-11.0)
[2020-08-15 13:51] LABS: ALB/GLOB Ratio 1.1 RATIO (0.9-2.4); AST(SGOT) 50 U/L (15-37); Alanine Aminotransfer ALT/SGPT 62 U/L (13-56); Albumin, Serum 3.7 g/dL (3.2-5.0); Alkaline Phosphatase 109 U/L (45-117); Anion Gap 9 (5-15); BUN 12 mg/dL (7-18); BUN/Creat Ratio 15.6 RATIO (10-20); Calcium,Total 9.2 mg/dL (8.5-10.1); Chloride 107 mmol/L (98-107); Creatinine, Serum 0.77 mg/dL (0.55-1.02); EST Glomerular Filtration Rate 84 mL/min (>60); Est Glom Filt Rate - Afr Amer 102 mL/min (>60); Globulin 3.4 g/dL (2.2-4.2); Glucose 173 mg/dL (74-106); Luteinizing Hormone 9.9 mIU/mL; Potassium 4.2 mmol/L (3.5-5.1); Protein, Total 7.1 g/dL (6.4-8.2); Sodium Level 140 mmol/L (136-145); T4 Free Direct 0.95 ng/dL (0.76-1.46); Thyroid Stim Hormone (TSH) 0.88 uIU/mL (0.358-3.74)
== END ==
PROVIDERS: PCP Family Medicine; Visit Provider Family Medicine
DX: U07.1 COVID-19 (principal); J12.89 Other viral pneumonia; I10 Essential (primary) hypertension; R74.8 Abnormal levels of other serum enzymes; E03.9 Hypothyroidism, unspecified
CPT/HCPCS: 36415; 80053; 83001; 83002; 84439; 84443; 85025

== ENCOUNTER → 2020-09-23 08:08 | Outpatient (CLI) | payer OTHER, SELFPAY ==
[2020-09-12 10:35] VITALS: BMI 49.6
[2020-09-23 10:09] LABS: Absolute Lymphocyte Count 2.01 X10^3/uL (0.83-4.51); Absolute Neutrophil Count 4.4 X10^3/uL (2.0-7.7); Basophil# 0.02 X10^3/uL; Basophil% 0.3 % (0-1); Eosinophil# 0.07 X10^3/uL; Hemoglobin 13.9 g/dL (12.0-15.0); Lymphocyte # 2.01 X10^3/ul (4.0); Mean Corp Hgb Conc 32.3 g/dL (32-36); Mean Corpuscular Hgb 30.9 pg (27.0-32.0); Mean Corpuscular Volume 95.6 fL (81-99); Mean Platelet Vol. 9.1 fl (6.2-12.0); Monocyte# 0.38 X10^3/uL; Monocyte% 5.5 % (0-10); NRBC Flagged by Analyzer 0 % (0-5); Neutrophil % 63.6 % (47-70); Platelet Count 281 K/mm3 (150-450); RBC Distribution Width SD 49.1 fl (35.1-43.9); White Blood Count 6.9 K/mm3 (4.4-11.0)
[2020-09-23 10:21] LABS: ALB/GLOB Ratio 1.1 RATIO (0.9-2.4); AST(SGOT) 41 U/L (15-37); Alanine Aminotransfer ALT/SGPT 59 U/L (13-56); Albumin, Serum 3.8 g/dL (3.2-5.0); Alkaline Phosphatase 116 U/L (45-117); Anion Gap 9 (5-15); BUN 18 mg/dL (7-18); BUN/Creat Ratio 20.2 RATIO (10-20); Calcium,Total 9.6 mg/dL (8.5-10.1); Chloride 105 mmol/L (98-107); Creatinine, Serum 0.89 mg/dL (0.55-1.02); EST Glomerular Filtration Rate 71 mL/min (>60); Est Glom Filt Rate - Afr Amer 86 mL/min (>60); Globulin 3.4 g/dL (2.2-4.2); Glucose 233 mg/dL (74-106); Potassium 4.7 mmol/L (3.5-5.1); Protein, Total 7.2 g/dL (6.4-8.2); Sodium Level 140 mmol/L (136-145)
== END ==
PROVIDERS: PCP Family Medicine; Referring Provider Internal Medicine Rheumatology; Visit Provider Internal Medicine Rheumatology
DX: M05.70 Rheumatoid arthritis with rheumatoid factor of unspecified site without organ or systems involvement (principal); Z79.899 Other long term (current) drug therapy; M16.0 Bilateral primary osteoarthritis of hip; K76.0 Fatty (change of) liver, not elsewhere classified; F41.9 Anxiety disorder, unspecified; F32.89 Other specified depressive episodes; I10 Essential (primary) hypertension
CPT/HCPCS: 36415; 80053; 85025

== ENCOUNTER 2020-10-13 13:45 | Outpatient (RCR) | payer OTHER, SELFPAY ==
[2020-09-12 10:35] VITALS: BMI 49.6
[2020-10-13] MEDS: COVID-19 VACC, MRNA(PFIZER)/PF 30 MCG/0.3 ML SYRINGE IM (09:57)
[2020-11-03] MEDS: COVID-19 VACC, MRNA(PFIZER)/PF 30 MCG/0.3 ML SYRINGE IM (09:58)
== END 2020-10-13 23:59 ==
LOC: IMMUN 13:45
PROVIDERS: PCP Family Medicine; Visit Provider Family Medicine
DX: Z23 Encounter for immunization (principal)
CPT/HCPCS: 0001A; 0002A; 91300

== ENCOUNTER → 2020-12-22 09:10 | Outpatient (CLI) | payer OTHER, SELFPAY ==
[2020-09-12 10:35] VITALS: BMI 49.6
[2020-12-22 10:09] LABS: Absolute Lymphocyte Count 2.29 X10^3/uL (0.83-4.51); Absolute Neutrophil Count 6.3 X10^3/uL (2.0-7.7); Basophil# 0.05 X10^3/uL; Basophil% 0.5 % (0-1); Eosinophil# 0.09 X10^3/uL; Hematocrit 41.8 % (37-47); Hemoglobin 13.4 g/dL (12.0-15.0); Lymphocyte # 2.29 X10^3/ul (0.83-4.51); Lymphocyte % 24.2 % (19-41); Mean Corp Hgb Conc 32.1 g/dL (32-36); Mean Corpuscular Hgb 30.3 pg (27.0-32.0); Mean Corpuscular Volume 94.6 fL (81-99); Mean Platelet Vol. 9.1 fl (6.2-12.0); Monocyte# 0.63 X10^3/uL; Monocyte% 6.7 % (0-10); NRBC Flagged by Analyzer 0 % (0-5); Neutrophil # 6.34 X10^3/uL (2.7-7.7); Platelet Count 327 K/mm3 (150-450); RBC Distribution Width CV 13.5 % (11.6-14.6); RBC Distribution Width SD 46.9 fl (35.1-43.9); Red Blood Count 4.42 M/mm3 (4.2-5.4); White Blood Count 9.5 K/mm3 (4.4-11.0)
[2020-12-22 11:16] LABS: AST(SGOT) 34 U/L (15-37); Alanine Aminotransfer ALT/SGPT 57 U/L (13-56); Albumin, Serum 3.6 g/dL (3.2-5.0); Alkaline Phosphatase 126 U/L (45-117); Anion Gap 5 (5-15); BUN 15 mg/dL (7-18); BUN/Creat Ratio 19.1 RATIO (10-20); Calcium,Total 9.6 mg/dL (8.5-10.1); Chloride 105 mmol/L (98-107); Creatinine, Serum 0.78 mg/dL (0.55-1.02); EST Glomerular Filtration Rate 82 mL/min (>60); Est Glom Filt Rate - Afr Amer 99 mL/min (>60); Globulin 3.6 g/dL (2.2-4.2); Glucose 149 mg/dL (74-106); Potassium 4.2 mmol/L (3.5-5.1); Protein, Total 7.2 g/dL (6.4-8.2); Sodium Level 139 mmol/L (136-145)
== END ==
PROVIDERS: PCP Family Medicine; Referring Provider Internal Medicine Rheumatology; Visit Provider Internal Medicine Rheumatology
DX: M05.70 Rheumatoid arthritis with rheumatoid factor of unspecified site without organ or systems involvement (principal); Z79.899 Other long term (current) drug therapy; M16.0 Bilateral primary osteoarthritis of hip; K76.0 Fatty (change of) liver, not elsewhere classified; F41.9 Anxiety disorder, unspecified; F32.89 Other specified depressive episodes; I10 Essential (primary) hypertension; E11.9 Type 2 diabetes mellitus without complications; E03.9 Hypothyroidism, unspecified; E78.5 Hyperlipidemia, unspecified; G47.33 Obstructive sleep apnea (adult) (pediatric)
CPT/HCPCS: 36415; 80053; 85025

== ENCOUNTER → 2020-12-27 11:49 | Outpatient (CLI) | payer OTHER, SELFPAY ==
[2020-09-12 10:35] VITALS: BMI 49.6
--- NOTE | 2020-12-27 11:55 | RAD_ITS ---
STUDY: X-RAY CHEST REASON FOR EXAM: Female, 50 years old. PAIN TECHNIQUE: Frontal and lateral views of the chest COMPARISON: None. FINDINGS: The lungs are clear and expanded. There is no demonstrated pleural abnormality. Normal size heart. Normal mediastinum and sudha. Normal visualized pulmonary arteries. Normal visualized aortic arch and descending thoracic aorta. Normal visualized thoracic spine. Normal visualized ribs, clavicles, and shoulders. There is no demonstrated abnormality of the visualized soft tissue structures of the upper abdomen. RAD/Chest PA and Lateral IMPRESSION: Normal x-ray examination of the chest. Electronically Signed: Raymond Perez MD at 19:10 EDT Tel , Service support ,
[2020-12-29 20:08] LABS: QNTFERON TB Mitogen Value > 10.00 IU/mL (.); QNTFERON TB Nil Value 0 IU/mL (.); QNTFERON TB1+ Ag Value 0 IU/mL (.); QNTFERON TB2+ Ag Value 0 IU/mL (.)
[2020-12-29 21:05] LABS: QNTIFERON TB Positive Criteria Negative (Negative)
== END ==
PROVIDERS: PCP Family Medicine; Referring Provider Internal Medicine Rheumatology; Visit Provider Internal Medicine Rheumatology
DX: M05.70 Rheumatoid arthritis with rheumatoid factor of unspecified site without organ or systems involvement (principal); Z79.899 Other long term (current) drug therapy; M16.0 Bilateral primary osteoarthritis of hip; K76.0 Fatty (change of) liver, not elsewhere classified; F41.9 Anxiety disorder, unspecified; F32.89 Other specified depressive episodes; I10 Essential (primary) hypertension; E11.9 Type 2 diabetes mellitus without complications; E03.9 Hypothyroidism, unspecified; E78.5 Hyperlipidemia, unspecified; G47.33 Obstructive sleep apnea (adult) (pediatric)
CPT/HCPCS: 36415; 71046; 86480

== ENCOUNTER → 2021-02-02 09:46 | Outpatient (CLI) | payer OTHER, SELFPAY ==
[2020-09-12 10:35] VITALS: BMI 49.6
--- NOTE | 2021-02-02 17:24 | STRESSREP ---
Stress Test Report Date: 02-02-2021 Procedure: Exercise tolerance test Indications: Chest pain Consent: Per the patient Procedure: The patient exercised on a Brian protocol for 4 minutes completing Stage I and 1 minute of S II achieving a peak heart rate of 153 bpm (91% predicted maximal heart rate) with a peak blood pressure 210/90 mmHg and a peak MET capacity of approximately 5 MET's. The baseline ECG demonstrated normal sinus rhythm. The peak exercise ECG demonstrated no obvious ECG changes. There were no cardiac dysrhythmias pretest, during exercise, or recovery. The functional capacity was considered decreased. The patient had no complaint of chest discomfort during exercise or recovery. The examination was discontinued secondary to dyspnea. Impression: 1. Technically adequate (percent predicted maximal heart rate greater than 85%) exercise tolerance test 2. Peak exercise ECG with no obvious ECG change 3. There were no cardiac dysrhythmias during exercise or recovery This note was generated with i[employer]ism [employer] software. It may contain incorrect words, spelling, and punctuation that were not noted in checking the note before signing.
== END ==
PROVIDERS: PCP Family Medicine; Referring Provider Family Medicine; Visit Provider Family Medicine
DX: R07.9 Chest pain, unspecified (principal)
CPT/HCPCS: 93017

== ENCOUNTER → 2021-04-14 10:04 | Outpatient (CLI) | payer OTHER, SELFPAY ==
[2021-04-14 12:19] LABS: Absolute Lymphocyte Count 2.32 X10^3/uL (0.83-4.51); Absolute Neutrophil Count 4.5 X10^3/uL (2.0-7.7); Basophil# 0.04 X10^3/uL; Basophil% 0.5 % (0-1); Eosinophil# 0.08 X10^3/uL; Eosinophils% 1.1 % (0-5); Hematocrit 45.2 % (37-47); Hemoglobin 14.4 g/dL (12.0-15.0); Lymphocyte # 2.32 X10^3/ul (0.83-4.51); Lymphocyte % 30.9 % (19-41); Mean Corp Hgb Conc 31.9 g/dL (32-36); Mean Corpuscular Hgb 30.7 pg (27.0-32.0); Mean Corpuscular Volume 96.4 fL (81-99); Mean Platelet Vol. 9.4 fl (6.2-12.0); Monocyte% 6.6 % (0-10); NRBC Flagged by Analyzer 0 % (0-5); Neutrophil # 4.51 X10^3/uL (2.7-7.7); Platelet Count 304 K/mm3 (150-450); RBC Distribution Width CV 13.6 % (11.6-14.6); RBC Distribution Width SD 48.1 fl (35.1-43.9); Red Blood Count 4.69 M/mm3 (4.2-5.4); White Blood Count 7.5 K/mm3 (4.4-11.0)
[2021-04-14 12:34] LABS: AST(SGOT) 44 U/L (15-37); Alanine Aminotransfer ALT/SGPT 68 U/L (13-56); Albumin, Serum 3.8 g/dL (3.2-5.0); Alkaline Phosphatase 117 U/L (45-117); Anion Gap 5 (5-15); BUN 16 mg/dL (7-18); BUN/Creat Ratio 19.3 RATIO (10-20); Calcium,Total 9.6 mg/dL (8.5-10.1); Chloride 108 mmol/L (98-107); Creatinine, Serum 0.83 mg/dL (0.55-1.02); EST Glomerular Filtration Rate 77 mL/min (>60); Est Glom Filt Rate - Afr Amer 93 mL/min (>60); Globulin 3.8 g/dL (2.2-4.2); Glucose 154 mg/dL (74-106); Potassium 4.4 mmol/L (3.5-5.1); Protein, Total 7.6 g/dL (6.4-8.2); Sodium Level 142 mmol/L (136-145)
== END ==
PROVIDERS: PCP Family Medicine; Referring Provider Internal Medicine Rheumatology; Visit Provider Internal Medicine Rheumatology
DX: M05.70 Rheumatoid arthritis with rheumatoid factor of unspecified site without organ or systems involvement (principal); Z79.899 Other long term (current) drug therapy; M16.0 Bilateral primary osteoarthritis of hip; K76.0 Fatty (change of) liver, not elsewhere classified; F41.9 Anxiety disorder, unspecified; F32.89 Other specified depressive episodes; I10 Essential (primary) hypertension; E11.9 Type 2 diabetes mellitus without complications; E03.9 Hypothyroidism, unspecified; E78.5 Hyperlipidemia, unspecified; G47.33 Obstructive sleep apnea (adult) (pediatric)
CPT/HCPCS: 36415; 80053; 85025

== ENCOUNTER 2021-10-06 09:35 | Outpatient (CLI) | payer OTHER, SELFPAY ==
[2021-10-06 12:19] LABS: Absolute Lymphocyte Count 1.94 X10^3/uL (0.83-4.51); Absolute Neutrophil Count 3.7 X10^3/uL (2.0-7.7); Basophil# 0.03 X10^3/uL; Basophil% 0.5 % (0-1); Eosinophil# 0.06 X10^3/uL; Hematocrit 42.4 % (37-47); Hemoglobin 14.3 g/dL (12.0-15.0); Lymphocyte # 1.94 X10^3/ul (0.83-4.51); Lymphocyte % 31.6 % (19-41); Mean Corp Hgb Conc 33.7 g/dL (32-36); Mean Corpuscular Hgb 31.1 pg (27.0-32.0); Mean Corpuscular Volume 92.2 fL (81-99); Mean Platelet Vol. 9.6 fl (6.2-12.0); Monocyte# 0.37 X10^3/uL; NRBC Flagged by Analyzer 0 % (0-5); Neutrophil # 3.72 X10^3/uL (2.7-7.7); Neutrophil % 60.6 % (47-70); Platelet Count 277 K/mm3 (150-450); RBC Distribution Width CV 13.4 % (11.6-14.6); RBC Distribution Width SD 45.7 fl (35.1-43.9); White Blood Count 6.1 K/mm3 (4.4-11.0)
[2021-10-06 12:35] LABS: Vitamin D,25 Hydroxy 38.1 ng/mL
[2021-10-06 12:44] LABS: ALB/GLOB Ratio 1.2 RATIO (0.9-2.4); AST(SGOT) 23 U/L (15-37); Alanine Aminotransfer ALT/SGPT 50 U/L (13-56); Alkaline Phosphatase 115 U/L (45-117); Anion Gap 7 (5-15); BUN 20 mg/dL (7-18); BUN/Creat Ratio 23.7 RATIO (10-20); Chloride 108 mmol/L (98-107); Cholesterol 140 mg/dL (200); Creatinine, Serum 0.84 mg/dL (0.55-1.02); EST Glomerular Filtration Rate 75 mL/min (>60); Est Glom Filt Rate - Afr Amer 91 mL/min (>60); Globulin 3.3 g/dL (2.2-4.2); Glucose 158 mg/dL (74-106); High Density Lipoprotein 49 mg/dL; Potassium 3.9 mmol/L (3.5-5.1); Protein, Total 7.3 g/dL (6.4-8.2); Sodium Level 140 mmol/L (136-145); T4 Free Direct 1.17 ng/dL (0.76-1.46); Thyroid Stim Hormone (TSH) 0.46 uIU/mL (0.358-3.74); Triglycerides 103 mg/dL; Very Low Density Lipoprotein 21 mg/dL (5-40)
[2021-10-06 12:48] LABS: Microalbumin:Creatinine Ratio 73.2 mg/g CRE (<30 mg/g CRE)
== END 2021-10-06 23:59 | disposition home or self-care (01) ==
PROVIDERS: PCP Family Medicine; Referring Provider Internal Medicine Endocrinology, Diabetes & Metabolism; Visit Provider Internal Medicine Endocrinology, Diabetes & Metabolism
DX: M05.70 Rheumatoid arthritis with rheumatoid factor of unspecified site without organ or systems involvement (principal); E11.9 Type 2 diabetes mellitus without complications; Z79.899 Other long term (current) drug therapy; M16.0 Bilateral primary osteoarthritis of hip; K76.0 Fatty (change of) liver, not elsewhere classified; F41.9 Anxiety disorder, unspecified; F32.89 Other specified depressive episodes; I10 Essential (primary) hypertension; E03.9 Hypothyroidism, unspecified; E78.5 Hyperlipidemia, unspecified; G47.33 Obstructive sleep apnea (adult) (pediatric)
CPT/HCPCS: 80053; 80061; 82043; 82306; 82570; 84439; 84443; 85025

== ENCOUNTER → 2022-04-09 | Outpatient (CLI) | payer OTHER, SELFPAY ==
[2022-04-09 09:58] LABS: Absolute Neutrophil Count 4.5 X10^3/uL (2.0-7.7); Basophil# 0.03 X10^3/uL; Basophil% 0.4 % (0-1); Eosinophil# 0.08 X10^3/uL; Hematocrit 45.9 % (37-47); Lymphocyte % 35.8 % (19-41); Mean Corp Hgb Conc 32.7 g/dL (32-36); Mean Corpuscular Hgb 31.1 pg (27.0-32.0); Mean Platelet Vol. 9.1 fl (6.2-12.0); Monocyte# 0.41 X10^3/uL; Monocyte% 5.2 % (0-10); NRBC Flagged by Analyzer 0 % (0-5); Neutrophil # 4.46 X10^3/uL (2.7-7.7); Platelet Count 295 K/mm3 (150-450); RBC Distribution Width CV 14.4 % (11.6-14.6); Red Blood Count 4.83 M/mm3 (4.2-5.4); White Blood Count 7.8 K/mm3 (4.4-11.0)
[2022-04-09 10:38] LABS: ALB/GLOB Ratio 1.1 RATIO (0.9-2.4); AST(SGOT) 16 U/L (15-37); Alanine Aminotransfer ALT/SGPT 30 U/L (13-56); Albumin, Serum 3.9 g/dL (3.2-5.0); Alkaline Phosphatase 121 U/L (45-117); Anion Gap 6 (5-15); BUN 25 mg/dL (7-18); BUN/Creat Ratio 25.8 RATIO (10-20); Calcium,Total 9.6 mg/dL (8.5-10.1); Chloride 107 mmol/L (98-107); Creatinine, Serum 0.97 mg/dL (0.55-1.02); EST Glomerular Filtration Rate 64 mL/min (>60); Est Glom Filt Rate - Afr Amer 77 mL/min (>60); Globulin 3.5 g/dL (2.2-4.2); Glucose 212 mg/dL (74-106); Potassium 4.5 mmol/L (3.5-5.1); Protein, Total 7.4 g/dL (6.4-8.2); Sodium Level 141 mmol/L (136-145)
== END | disposition home or self-care (01) ==
LOC: MTLAB 07:57
PROVIDERS: PCP Family Medicine; Referring Provider Internal Medicine Rheumatology; Visit Provider Internal Medicine Rheumatology
DX: M05.79 Rheumatoid arthritis with rheumatoid factor of multiple sites without organ or systems involvement (principal); E11.9 Type 2 diabetes mellitus without complications; Z79.899 Other long term (current) drug therapy; M16.0 Bilateral primary osteoarthritis of hip; K76.0 Fatty (change of) liver, not elsewhere classified; F41.9 Anxiety disorder, unspecified; F32.89 Other specified depressive episodes; I10 Essential (primary) hypertension; E03.9 Hypothyroidism, unspecified; E78.5 Hyperlipidemia, unspecified; G47.33 Obstructive sleep apnea (adult) (pediatric)
CPT/HCPCS: 36415; 80053; 85025

== ENCOUNTER 2022-06-28 09:00 | Outpatient (CLI) | payer OTHER, SELFPAY ==
[2022-06-28 10:45] LABS: Color, Urine Yellow (Yellow); Glucose, Dipstick 1000 mg/dl (Normal); Ketone-Dipstick Negative (Negative); Leukocyte Esterase-Dipstick 500 /ul (Negative); Nitrite-Dipstick Negative (Negative); Occult Blood-Urine 10 /ul (Negative); Protein-Dipstick 15 mg/dl (Negative); Specific Gravity, Urine 1.005 (1.002-1.030); Urine Bilirubin Dipstick Negative (Negative); Urine Clarity Sl. Cloudy (Clear); Urine Urobilinogen Normal (Normal)
[2022-06-28 11:13] LABS: Thyroid Stim Hormone (TSH) 1.11 uIU/mL (0.358-3.74)
== END 2022-06-28 23:59 | disposition home or self-care (01) ==
LOC: MTLAB 09:01
PROVIDERS: PCP Family Medicine; Referring Provider Internal Medicine Endocrinology, Diabetes & Metabolism; Visit Provider Internal Medicine Endocrinology, Diabetes & Metabolism
DX: R10.9 Unspecified abdominal pain (principal); E11.319 Type 2 diabetes mellitus with unspecified diabetic retinopathy without macular edema; I10 Essential (primary) hypertension; E03.9 Hypothyroidism, unspecified; E66.9 Obesity, unspecified
CPT/HCPCS: 81002; 84439; 84443; 87086; 87088

== ENCOUNTER → 2022-10-02 | Outpatient (CLI) | payer BC, SELFPAY ==
[2022-10-02 09:59] LABS: Absolute Lymphocyte Count 2.22 X10^3/uL (0.83-4.51); Absolute Neutrophil Count 4.8 X10^3/uL (2.0-7.7); Basophil# 0.05 X10^3/uL; Basophil% 0.7 % (0-1); Eosinophil# 0.05 X10^3/uL; Eosinophils% 0.7 % (0-5); Hematocrit 46.6 % (37-47); Lymphocyte # 2.22 X10^3/ul (0.83-4.51); Lymphocyte % 29.1 % (19-41); Mean Corp Hgb Conc 32.2 g/dL (32-36); Mean Corpuscular Hgb 30.9 pg (27.0-32.0); Mean Corpuscular Volume 96.1 fL (81-99); Mean Platelet Vol. 9.1 fl (6.2-12.0); Monocyte# 0.49 X10^3/uL; Monocyte% 6.4 % (0-10); NRBC Flagged by Analyzer 0 % (0-5); Neutrophil % 62.7 % (47-70); Platelet Count 326 K/mm3 (150-450); RBC Distribution Width CV 13.8 % (11.6-14.6); RBC Distribution Width SD 48.9 fl (35.1-43.9); Red Blood Count 4.85 M/mm3 (4.2-5.4); White Blood Count 7.6 K/mm3 (4.4-11.0)
[2022-10-02 10:13] LABS: ALB/GLOB Ratio 1.1 RATIO (0.9-2.4); AST(SGOT) 16 U/L (15-37); Alanine Aminotransfer ALT/SGPT 35 U/L (13-56); Albumin, Serum 3.8 g/dL (3.2-5.0); Alkaline Phosphatase 104 U/L (45-117); Anion Gap 7 (5-15); BUN 23 mg/dL (7-18); BUN/Creat Ratio 25.7 RATIO (10-20); Calcium,Total 9.4 mg/dL (8.5-10.1); Chloride 106 mmol/L (98-107); Creatinine, Serum 0.89 mg/dL (0.55-1.02); EST Glomerular Filtration Rate 70 mL/min (>60); Est Glom Filt Rate - Afr Amer 85 mL/min (>60); Globulin 3.5 g/dL (2.2-4.2); Glucose 162 mg/dL (74-106); Potassium 4.1 mmol/L (3.5-5.1); Protein, Total 7.3 g/dL (6.4-8.2); Sodium Level 141 mmol/L (136-145)
== END | disposition home or self-care (01) ==
LOC: MTLAB 08:36
PROVIDERS: PCP Internal Medicine; Referring Provider Internal Medicine Rheumatology; Visit Provider Internal Medicine Rheumatology
DX: M16.0 Bilateral primary osteoarthritis of hip (principal); E11.9 Type 2 diabetes mellitus without complications; Z79.899 Other long term (current) drug therapy; K76.0 Fatty (change of) liver, not elsewhere classified; F41.9 Anxiety disorder, unspecified; F32.89 Other specified depressive episodes; I10 Essential (primary) hypertension; E03.9 Hypothyroidism, unspecified; E78.5 Hyperlipidemia, unspecified; G47.33 Obstructive sleep apnea (adult) (pediatric)
CPT/HCPCS: 36415; 80053; 85025

== ENCOUNTER → 2022-11-30 | Outpatient (CLI) | payer BC, SELFPAY ==
--- NOTE | 2022-11-30 06:04 | ECHOCS_ITS ---
Reason For Study: Chest Pain Procedure This was a 2D Doppler, Color Flow transthoracic echocardiogram. Contrast injection was performed. Exam performed in department. Left Ventricle Mild concentric left ventricular hypertrophy. The left ventricular ejection fraction is 65 %. No evidence for diastolic dysfunction. Right Ventricle Mildly dilated right ventricle. Normal systolic function. Atria The left and right atria are normal. Mitral Valve Mild diffuse mitral valve thickening. Moderate focal mitral valve calcification of the posterior leaflet. Trivial mitral valve insufficiency. Tricuspid Valve Normal tricuspid valve. Aortic Valve Aortic valve thickened and mildly calcified noncoronary cusp. Trivial aortic valve insufficiency. Pulmonic Valve The pulmonic valve is not well visualized. Great Vessels Normal sized aortic root. Pericardium/Pleural No pericardial effusion. Medication Diluted definity 4.5ml given slow IV push to enhance endocardial definition. MMode/2D Measurements & Calculations LVIDd: 4.7 cm IVSd: 1.2 cm Ao root diam: 3.3 cm LVIDs: 3.0 cm LVPWd: 1.2 cm RVDd: 4.5 cm FS: 37.2 % LAV(MOD-bp): 44.6 ml LVAd ap4: 29.0 cm2 SV(MOD-sp4): 54.3 ml LAV(MOD-bp) Indexed: 17.3 ml/m2 LVLd ap4: 7.9 cm LAV(MOD-sp2): 37.5 ml EDV(MOD-sp4): 86.9 ml LAV(MOD-sp4): 52.3 ml EDV(sp4-el): 90.2 ml LVAs ap4: 15.2 cm2 LVLs ap4: 5.9 cm ESV(MOD-sp4): 32.5 ml ESV(sp4-el): 33.6 ml EF(MOD-sp4): 62.6 % EF(sp4-el): 62.7 % SV(sp4-el): 56.6 ml LA A4 area: 19.6 cm2 LA dimension(2D): 3.4 cm RA A4 area: 11.9 cm2 Time Measurements MV dec time: 0.22 sec Doppler Measurements & Calculations MV E max luiz: 66.2 cm/sec Lat Peak E' Luiz: 10.2 cm/sec Med Peak E' Luiz: 6.4 cm/sec MV A max luiz: 72.1 cm/sec E/E' lat: 6.5 E/E' med: 10.4 MV E/A: 0.92 MV dec slope: 300.7 cm/sec2 Ao V2 max: 132.7 cm/sec LV V1 max: 102.0 cm/sec Ao max P.0 mmHg LV V1 max P.2 mmHg Ao V2 mean: 102.0 cm/sec Ao mean P.4 mmHg Ao V2 VTI: 32.6 cm PA V2 max: 92.3 cm/sec ECHO/Echo Complete W/ Contrast Interpretation Summary Technically difficult study. Mild concentric left ventricular hypertrophy. The left ventricular ejection fraction is 65 %. No evidence for diastolic dysfunction. Mildly dilated right ventricle. Moderate focal mitral valve calcification of the posterior leaflet. Aortic valve thickened and mildly calcified noncoronary cusp. Ordering Physician: Ken Espino Referring Physician: Primitivo Ceron Performed By: Danielle Camacho, RDCS, RVT
--- NOTE | 2022-11-30 13:38 | STRESSREP_ITS ---
Stress Test Report Date: 11/30/2022 Procedure: Pharmacologic stress nuclear imaging study Indications: Chest pain Consent: Per the patient Procedure: The patient underwent pharmacologic (Regadenoson 0.4mg ) evaluation with a peak heart rate of 80 beats per minute (51%predicted maximal heart rate) and a peak blood pressure of 120/70 mmHg. The baseline ECG demonstrated sinus rhythm. The peak pharmacologic ECG demonstrated no ischemic changes. There were no cardiac dysrhythmias pretest, during pharmacologic infusion, or recovery. There was no complaint of chest discomfort during pharmacologic infusion or recovery. The patient was injected with 14.9 millicuries of technetium 99m Cardiolite and subsequently rest SPECT Cardiolite nuclear imaging was obtained in the horizontal long, vertical long, and short axis views. The patient underwent pharmacologic (Regadenoson) evaluation. The patient was injected with 44.7 millicuries of technetium 99m Cardiolite and subsequently stress SPECT Cardiolite nuclear imaging was obtained in the horizontal long, vertical long, and short axis views. A gated Cardiolite study at peak stress was obtained. The examination was stopped secondary to completion of protocol. Rest and stress SPECT Cardiolite nuclear imaging status post realignment, normalization, and attenuation correction demonstrate mildly reduced perfusion of the anterior wall post Lexiscan. There is end systolic thickening and brightening. The gated Cardiolite study demonstrates myocardial thickening and inward wall motion. The reported LVEF is 75%. Impression: 1. Pharmacologic (Regadenoson) evaluation 2. Peak pharmacologic ECG with no ischemic changes. 3. There were no cardiac dysrhythmias pretest, during pharmacologic infusion, or recovery. 5. Technically difficult study with great deal of attenuation artifacts. However post attenuation correction images suggest mildly reduced uptake of the anterior wall that may denote ischemia. 6. The gated Cardiolite study reports an LVEF of 75%. This note was generated with [employer] X-Change[employer] software. It may contain incorrect words, spelling, and punctuation that were not noted in checking the note before signing.
== END | disposition home or self-care (01) ==
PROVIDERS: PCP Internal Medicine; Referring Provider Internal Medicine Cardiovascular Disease; Visit Provider Internal Medicine Cardiovascular Disease
DX: R07.9 Chest pain, unspecified (principal); I10 Essential (primary) hypertension; Z82.49 Family history of ischemic heart disease and other diseases of the circulatory system
CPT/HCPCS: 78452; 93017; 93306; A9500; Q9957; A4216; C8929; J2785

== ENCOUNTER → 2022-12-25 | Outpatient (CLI) | payer BC, SELFPAY ==
[2022-12-25] VITALS (8 sets, daily range): BP systolic 129–158; BP diastolic 58–74; PULSE 70–85; RESP 18; O2SAT 96–100; BMI 48.7
[2022-12-25] MEDS: Metoprolol Tartrate 5 MG/5 ML Vial IV ×3 (13:07→13:20)
[2022-12-25] MEDS: 0.9% Saline Lock 10 ML Syringe IV (13:18)
[2022-12-25] MEDS: Nitroglycerin SL (ED/IMG/CATH) 0.4 MG TABLET SL (13:33)
--- NOTE | 2022-12-25 17:19 | CT_ITS ---
STUDY: CT CHEST WITHOUT CONTRAST REASON FOR EXAM: Female, 52 years old. ABNORMAL RESULT OF OTHER CARDIOVASCULAR FUNCTION STUDY. RADIATION DOSAGE (If Supplied By Facility): CTDIvol = ( 94.84 ) mGy, DLP = ( 2666.23 ) mGycm TECHNIQUE: Transaxial imaging was performed without the administration of intravenous contrast material. Cardiac ovaries examination. Individualized dose optimization techniques were used for this CT. COMPARISON: No relevant priors. FINDINGS: CHEST The lungs are normal. There is no demonstrated pleural abnormality. Coronary artery calcification. Normal mediastinum. Normal hilar regions. Normal unenhanced pulmonary arteries. Normal aorta arch and descending thoracic aorta. Normal osseous structures. There is no demonstrated abnormality of the visualized upper abdomen. CT/Limited Chest CT Cardiac Only IMPRESSION: Coronary artery calcification. Electronically Signed: Uli Dee MD at 15:49 EDT ,
--- NOTE | 2022-12-26 07:59 | CCTA.WCONT ---
CCTA w/Cont Coronary Arteries Date of Study:: 12/25/22 Abnormal cardiovascular functional study After informed consent was obtained the patient was brought to the radiology suite. Coronary calcium score was obtained after high resolution computerized tomography imaging of the chest was performed. Particular attention was paid to the coronary arteries. Images from the examination were analyzed for the presence and extent of coronary artery calcification using the coronary artery calcification quantification software. Patient tolerated the procedure well. Intravenous contrast was also injected for evaluation of the coronary arteries. Due to patient body habitus the quality of the scan was noted to be suboptimal. LEFT MAIN CORONARY ARTERY: This arose from the left main coronary cusp with no obvious stenosis. No calcification was noted [] LEFT ANTERIOR DESCENDING CORONARY ARTERY: Minimal coronary calcification was noted [] LEFT CIRCUMFLEX CORONARY ARTERY: No coronary calcium noted [] RIGHT CORONARY ARTERY: Mild coronary calcium with a score of 43.9. No obvious coronary stenosis noted [] CORONARY CALCIUM SCORE: 47.5 [This places patient between 75th and 90th percentile ranking] Suboptimal computerized cardiac angiography and calcium scoring with a low coronary calcium score. The above test is inconclusive for ruling out significant coronary artery disease.
== END | disposition home or self-care (01) ==
LOC: CT 12:46
PROVIDERS: PCP Internal Medicine; Referring Provider Internal Medicine Cardiovascular Disease; Visit Provider Internal Medicine Cardiovascular Disease
DX: R94.39 Abnormal result of other cardiovascular function study (principal); R07.9 Chest pain, unspecified; R06.09 Other forms of dyspnea; E78.5 Hyperlipidemia, unspecified
CPT/HCPCS: 75571; 75574; 76380; 96374; Q9967

== ENCOUNTER → 2023-01-11 | Outpatient (CLI) | payer BC, SELFPAY ==
[2023-01-11 10:26] LABS: Microalbumin,Random Urine 30.4 mg/L (NO RANGE EST.); Microalbumin:Creatinine Ratio 10.7 mg/g CRE (<30 mg/g CRE)
[2023-01-11 11:01] LABS: Cholesterol 127 mg/dL (200); High Density Lipoprotein 48 mg/dL; T4 Free Direct 1.13 ng/dL (0.76-1.46); Thyroid Stim Hormone (TSH) 1.23 uIU/mL (0.358-3.74); Triglycerides 110 mg/dL; Very Low Density Lipoprotein 22 mg/dL (5-40)
== END | disposition home or self-care (01) ==
LOC: MTLAB 09:10
PROVIDERS: PCP Internal Medicine; Referring Provider Internal Medicine Endocrinology, Diabetes & Metabolism; Visit Provider Internal Medicine Endocrinology, Diabetes & Metabolism
DX: E11.65 Type 2 diabetes mellitus with hyperglycemia (principal); Z79.4 Long term (current) use of insulin; E03.9 Hypothyroidism, unspecified
CPT/HCPCS: 36415; 80061; 82043; 82570; 84439; 84443

== ENCOUNTER 2023-03-29 06:09 | Day surgery (SDC) | payer BC, SELFPAY ==
[2023-03-29] VITALS (7 sets, daily range): BP systolic 108–126; BP diastolic 63–72; PULSE 75–82; RESP 16–18; TEMP 36–36.6; O2SAT 100; BMI 44.3
[2023-03-29] MEDS: Lactated Ringers 1,000 ML 15 ML IV (06:52)
--- NOTE | 2023-03-29 08:00 | COLBX_PTH ---
PATIENT: POONAM ALANIS LOC: EN U#:[id number] AGE/SX: 52/F ROOM: RE03/29/[address]: Dr. Thomas Ramires MD : 1970 BED: DIS: 03/29/2023 SPEC #: [id number] RECD: 03/29/23 11:03 STATUS: CHIQUITA FRANCIS #: [id number] DAVE: 03/29/23 08:[address]: Thomas Ramires DEPT: SURGICAL PATHOLOGY RECD BY: Velma Rodrigues ENTERED: 03/29/23 11:47 SP TYPE: COLON BX OTHR DR: Dr. Primitivo Ceron MD Tissues: Sigmoid colon biopsy Procedures: Surgery Specimen Level IV HEADER OPERATION: Colonoscopy, polypectomy PRE-OP DIAGNOSIS: Positive colorectal cancer screening using Cologuard test TISSUE SUBMITTED: Sigmoid colon polyp MICROSCOPIC DIAGNOSIS Sigmoid colon polyp, biopsy: Tubular adenoma. Negative for high-grade dysplasia. AM:kan 04/02/2023 MICROSCOPIC DESCRIPTION Slides are reviewed. GROSS DESCRIPTION Received in fixative is one container labeled with the patient's name and designated sigmoid colon polyp. The specimen consists of a pink-red polyp measuring 1.5 x 1.0 x 1.0 cm. A small pedicle is noted measuring 0.2 cm in length and 0.5 cm in diameter. The pedicle base is inked black. The specimen is serially sectioned and submitted entirely in two cassettes. / SUKH:kan 03/29/2023 TC:1 CPT: 25729
--- NOTE | 2023-03-29 09:14 | PCM.HP.BLA ---
History and Physical Date of Admission: 03/29/23 Date of Service: 03/07/23 MR#: [id number] Acct: [id number] Name: POONAM ALANIS Rep #: [id number] : 1970 Provider: Dr. Thomas Ramries MD Age/Sex: 52/F Location: [facility] Status: Signed Intake Vital Signs 02/06/2309:21 03/07/2313:10 Height 5 ft 9 in 5 ft 9 in Weight: 317 lb 311 lb BMI 46.7 45.9 BP 118/80 133/80 H Blood Pressure Location Rt brachial Rt brachial Position Sitting Sitting Respiration 16 17 Pulse 80 81 Pulse Source Monitor Monitor Temp 96.6 F L 97.3 F L Temp Source Temporal Temporal Pulse Oximetry (%) 98 98 Oxygen Delivery Method room air room air Intake Visit Reasons: POSITIVE COLOGUARD Chief Complaint: positive cologuard Is patient in pain?: No Allergies olanzapine [From Zyprexa] Adverse Reaction (Severe, Verified 03/07/23 13:11) Unknownmetformin HCl [From Glucophage] Adverse Reaction (Verified 03/07/23 13:11) Unknown Medications lactobacillus combination no.8 3 billion cell capsule (Adult Probiotic) 3,000 mmu cells PO QDAY 12/17/17 [History Confirmed 03/07/23] hydroxychloroquine 200 mg tablet 200 mg PO BID 01/20/18 [History Confirmed 03/07/23] aspirin 81 mg tablet,delayed release 81 mg PO DAILY 02/11/20 [History Confirmed 03/07/23] etanercept 50 mg/mL (1 mL) subcutaneous pen injector 50 mg subcut QWEEK 02/21/21 [History Confirmed 03/07/23] meclizine 25 mg tablet 25 mg PO ONCE PRN Dizziness 02/21/21 [History Confirmed 03/07/23] vilazodone 40 mg tablet 40 mg PO DAILY 02/21/21 [History Confirmed 03/07/23] pen needle, diabetic 31 gauge x 5/16 (BD Ultra-Fine Short Pen Needle) #450 ea 06/29/21 [Rx Confirmed 02/06/23] insulin lispro 200 unit/mL (3 mL) subcutaneous pen (Humalog KwikPen U-200 Insulin) 100 unit (0.5 mL) subcut .4 times daily #180 mL 05/03/22 [Rx Confirmed 03/07/23] flash glucose sensor (FreeStyle Shawn 14 Day Sensor kit) #6 ea 09/10/22 [Rx Confirmed 02/06/23] dapagliflozin propanediol 10 mg tablet (Farxiga) 10 mg PO DAILY #90 tabs 10/15/22 [Rx Confirmed 03/07/23] lisinopril 20 mg tablet 20 mg PO DAILY #90 tabs 11/02/22 [Rx Confirmed 03/07/23] multivitamin 1 tab PO DAILY 11/02/22 [History Confirmed 03/07/23] omega-3 fatty acids 1,000 mg capsule 1,000 mg PO DAILY 11/02/22 [History Confirmed 03/07/23] aripiprazole 10 mg tablet 10 mg PO DAILY 11/19/22 [History Confirmed 03/07/23] cyanocobalamin (vitamin B-12) 500 mcg tablet 500 mcg PO DAILY 11/19/22 [History Confirmed 03/07/23] mirtazapine 45 mg tablet 45 mg PO DAILY 11/19/22 [History Confirmed 03/07/23] prednisone 10 mg tablet 10 mg PO DIRECTED PRN see md 11/19/22 [History Confirmed 03/07/23] tirzepatide 10 mg/0.5 mL subcutaneous pen injector (Mounjaro) 10 mg (0.5 mL) subcut QWEEK #2 mL 01/01/23 [Rx Confirmed 03/07/23] desvenlafaxine succinate 100 mg tablet,extended release 24 hr (Pristiq) 100 mg PO DAILY 01/24/23 [History Confirmed 03/07/23] Novolin N FlexPen 100 unit/mL (3 mL) subcutaneous insulin pen (insulin NPH isoph U-100 human) See Rx Instructions subcut BID #72 mL 01/30/23 [Rx Confirmed 03/07/23] calcium carb,cit 300 mg-magnesium cit,ox 150 mg-vit D3 400 unit tablet 1 tab PO DAILY 02/04/23 [History Confirmed 03/07/23] Progesterone IUD intrauterine 02/06/23 [History Confirmed 03/07/23] amlodipine 2.5 mg tablet 2.5 mg PO DAILY #90 tabs 02/06/23 [Rx Confirmed 03/07/23] atorvastatin 10 mg tablet 10 mg PO .QOD 02/06/23 [History Confirmed 03/07/23] cholecalciferol (vitamin D3) 250 mcg (10,000 unit) capsule 250 mcg PO .twice weekly 02/06/23 [History Confirmed 03/07/23] metoprolol tartrate 50 mg tablet 50 mg PO BID #180 tabs 02/06/23 [Rx Confirmed 03/07/23] oxygen-air delivery systems 02/06/23 [History Confirmed 02/06/23] ubidecarenone-omega 3-vit E 25 mg-150 (90-60) mg-200 unit capsule (Co K-53-Vypsbkz E-Fish Oil) 1 cap PO .weekly 02/06/23 [History Confirmed 03/07/23] vitamin A 2,400 mcg capsule 8,000 unit PO .weekly 02/06/23 [History Confirmed 03/07/23] tirzepatide 12.5 mg/0.5 mL subcutaneous pen injector (Mounjaro) 12.5 mg (0.5 mL) subcut QWEEK #2 mL 02/22/23 [Rx Confirmed 03/07/23] levothyroxine 175 mcg tablet 175 mcg PO QDAY #90 tabs 02/27/23 [Rx Confirmed 03/07/23] PFSH Medical History abnormal calcium level Abnormal stress test Anxiety and depression Arthritis Breast lump Chest pain Diabetes Essential hypertension Family history of early CAD H/O emotional problems High cholesterol HTN (hypertension) Hx of kidney disease Hx: recurrent pneumonia Obesity BREANNA on CPAP Positive colorectal cancer screening using Cologuard test Preventative health care Recurrent UTI Rheumatoid arthritis Sleep apnea Thyroid disease Type 2 diabetes mellitus Vision problems Vitamin D deficiency Surgical History lip surgery Status post dilation and curettage Family History (Updated 03/07/23 @ 13:09 by Ann Cuellar) Unknown Bleeding disorder Breast cancer Diabetes Heart disease Hypertension High cholesterol Thyroid disorder Skin cancerMother Anxiety Arthritis Diabetes Hypertension High cholesterolGrandmother Breast cancer Colon cancer Thyroid disorderFather Diabetes Parkinsons History of coronary artery bypass surgery, Onset Age: 65 CAD (coronary artery disease) Heart disease High cholesterolBrother CAD (coronary artery disease), Onset Age: 47 Heart diseaseOther Autoimmune disorder Kidney disease Myocardial infarction Psychiatric care Social History (Updated 03/07/23 @ 13:10 by Ann Cuellar) Smoking Status: Never smoker alcohol intake: current alcohol intake frequency: holidays/special occasions only substance use type: does not use caffeine: Yes Type: carbonated beverages Number of servings: 1 what type of physical activity do you participate in: none seatbelt use: always do you feel safe at home: Yes HPI HPI HPI: Patient is a 52-year-old female who presents for need to schedule diagnostic colonoscopy secondary to positive Cologuard. They are referred for surgical consultation from Dr. Ceron. Patient has not had prior colonoscopy. Patient states that the reason for this was that she has so many medications she takes on a daily basis that she was concerned about interfering with the administration of these medications during the prep for colonoscopy so Cologuard was elected. She had a prior Cologuard test 4 years ago which was unremarkable. Patient has no personal history of inflammatory bowel disease or diverticulitis. They describe their bowel habits as somewhat erratic of late, but had explained this change in bowel habits due to starting Mounjaro 3 months ago. There was a rough temporal correlation between these 2 events. They describe having 2-3 bowel movements per day without significant straining and patient confirms that her toilet time is kept minimal. There is an alternation between diarrhea and constipation. They have not noticed recent bleeding or dark stools. They do not regularly take fiber supplements however she does tend consume significant fiber in her regular diet citing consumption of whole-wheat bread and veggies. Patient has a family history of colon cancer in her maternal grandmother (diagnosed in her 50s). The patient's weight is not stable, but patient attributes her recent 50 pound weight loss to starting Mounjaro. The patient is not prescribed anticoagulants/blood thinners, but she does use a daily aspirin. Relevant prior abdominal surgical history includes: Not applicable Patient does not have a significant history of GERD/heartburn. Patient has no history of prior anesthetic difficulties, but confirms a history of obstructive sleep apnea and has worn her CPAP faithfully for the last 15 years. ROS General General: Yes weight change and fatigue; No appetite, colon cancer, breast cancer or weakness HEENT HEENT: Yes eye surgery; No difficulty swallowing, eye injury, swollen glands or hoarseness Endo Endocrine: Yes thyroid disease and diabetes mellitus; No thyroid cancer, Hair loss, heat intolerance or cold intolerance Skin Skin: No rash or changing moles Musc Musculoskeletal: Yes arthritis and rheumatoid arthritis; No back problems, gout or joint pain Cardio Cardiovascular: Yes high blood pressure; No murmur, pacemaker, heart disease, atrial fibrillation, heart attack, heart stent, palpitations, shortness of breat with exertion or chest pain Psych Psychiatric: Yes depression and anxiety; No hearing voices Resp Respiratory: No shortness of breath, Yes sleep apnea, No cough, No COPD, No asthma, No emphysema and No wheezing Gastro Gastrointestinal: Yes abdominal pain, Yes nausea or vomiting, Yes diarrhea, Yes constipation, No blood in stool, No acid reflux, No hemorrhoids, No ulcers, No gallbladder problem and No black,tarry stools Ralph Hematologic: No blood thinners, No blood disorders, No bleeding, No anemia and No blood clots Neuro Neurologic: No system reviewed and no additional complaints, except as documented, No as per HPI, No abnormal gait, No abnormal hearing, No abnormal movements, No abnormal speech, No behavioral changes, No burning sensations, No confusion, No convulsions, No disequilibrium, No dizziness, No localized weakness, No frequent falls, No headache(s), No lack of coordination, No loss of vision, No memory loss, Yes numbness, No other visual disturbances, No radicular pain, No restless legs, No sensory deficit, No syncope, Yes tingling, No tremor(s), No weakness and No other Exam Const General: cooperative and no acute distress Nutritional Appearance: obese Orientation: alert, awake and oriented x3 Resp Effort & Inspection: normal respiratory effort GI Other: Obese, no scars, nondistended, soft, nontender to palpation x 4 quadrants Assessment and Plan Assessment and Plan (1) Positive colorectal cancer screening using Cologuard test: Status: Acute Comment: This is a 52-year-old female with no prior endoscopy history, who presents with recent positivity of Cologuard testing. Patient does have a history of prior negative Cologuard testing. She also relates a history of abnormal bowel movements that are recently changed and seem to alternate between diarrhea and constipation. This change was previously attributed to initiation of Mounjaro therapy. Lastly, patient does have a family history of colon cancer with her maternal grandmother (diagnosed in her 50s). While this is not a first-degree relative, the age of diagnosis less than 60 it is suggestive for some genetic risk. Based on the above I have recommended diagnostic colonoscopy under MAC sedation. However, given prior concerns about interruption of medication administration we will look to collaborate with Dr. Ceron so that there is as little interruption to patient's regimen is possible. Also, given her history of constipation, I have requested a 2-day bowel prep to try to ensure a quality exam. Plan: Plan will be to complete colonoscopy on first mutually agreeable date under local MAC (looking to contact PCP office to notify them of intent as well). Procedure to be completed with 2-day split bowel prep. Pre-procedure prep discussed and paper instructions provided. Patient is also made aware that she will need to have a transportation driver with her the day of the procedure. I have examined the patient and the H&P has been reviewed. There are no clinical changes since date of exam. Patient denies any changes to her bowel habits since her last meeting. Specifically she denies noting any bloody bowel movements. She confirms that she completed her prep and her output is now clear. She denies any further questions. Post procedure expectations were reviewed. Proceed to the endoscopy suite for planned colonoscopy given history of positive Cologuard testing.
--- NOTE | 2023-03-29 10:40 | OP.COLON_ITS ---
Patient Name: Sparkle Moyer Procedure Date: 03/29/2023 9:16 AM Date of : 1970 Age: 52 Procedure: Colonoscopy Indications: Positive Cologuard test Providers: Thomas Ramires MD Referring MD: Primitivo Ceron MD Medicines: See the Anesthesia note for documentation of the administered medications Patient Profile: Last Colonoscopy: none. The patient's first colonoscopy is today. Complications: No immediate complications. Estimated blood loss: None. Procedure: Pre-Anesthesia Assessment: - The heart rate, respiratory rate, oxygen saturations, blood pressure, adequacy of pulmonary ventilation, and response to care were monitored throughout the procedure. After I obtained informed consent, the scope was passed under direct vision. Throughout the procedure, the patient's blood pressure, pulse, and oxygen saturations were monitored continuously. The Colonoscope was introduced through the anus and advanced to the cecum, identified by its appearance. The colonoscopy was technically difficult and complex due to a redundant colon and the patient's body habitus. Successful completion of the procedure was aided by withdrawing and reinserting the scope, straightening and shortening the scope to obtain bowel loop reduction and applying abdominal pressure. The patient tolerated the procedure well. The quality of the bowel preparation was adequate to identify polyps greater than 5 mm in size. Scope In: 9:32:32 AM Scope Withdrawal Time 0 hours 26 minutes 20 seconds Scope Out: 10:29:28 AM Total Procedure Duration Time 0 hours 56 minutes 56 seconds Findings: Skin tags were found on perianal exam. The transverse colon was significantly redundant. Advancing the scope required changing the patient to a supine position. A 30 mm polyp was found in the proximal sigmoid colon. The polyp was pedunculated. The polyp was removed with a hot snare. Resection and retrieval were complete. Estimated blood loss: none. A few small-mouthed diverticula were found in the sigmoid colon and mid sigmoid colon. Estimated blood loss: none. No biopsies or other specimens were collected for this exam. The exam was otherwise without abnormality on direct and retroflexion views. Impression: - Perianal skin tags found on perianal exam. - Redundant colon. - One 30 mm polyp in the proximal sigmoid colon, removed with a hot snare. Resected and retrieved. - Diverticulosis in the sigmoid colon and in the mid sigmoid colon. No specimens collected. - The examination was otherwise normal on direct and retroflexion views. Recommendation: - Discharge patient to home (via wheelchair). - Resume previous diet today. - Continue present medications. - Await pathology results. - Repeat colonoscopy date to be determined after pending pathology results are reviewed for surveillance based on pathology results. - Telephone my office for pathology results in 1 week. Procedure Code(s): --- Professional --- 29572, Colonoscopy, flexible; with removal of tumor(s), polyp(s), or other lesion(s) by snare technique Diagnosis Code(s): --- Professional --- D12.5, Benign neoplasm of sigmoid colon K64.4, Residual hemorrhoidal skin tags R19.5, Other fecal abnormalities K57.30, Diverticulosis of large intestine without perforation or abscess without bleeding Q43.8, Other specified congenital malformations of intestine CPT copyright 2021 [employer]. All rights reserved. The codes documented in this report are preliminary and upon certified procedural coder review may be revised to meet current compliance requirements. Thomas Ramires MD 03/29/2023 10:39:55 AM This report has been signed electronically. Number of Addenda: 0 Note Initiated On: 03/29/2023 9:16 AM
--- NOTE | 2023-03-29 10:41 | OP.CCLET_ITS ---
03/29/2023 Primitivo Ceron MD [address] [place] [address] [place] [address] Re : Colonoscopy procedure for Sparkle Moyer Dear Dr. Ceron This procedure was performed on Wednesday, March 29, 2023. My impressions and recommendations are as follows: Impressions : - Perianal skin tags found on perianal exam. - Redundant colon. - One 30 mm polyp in the proximal sigmoid colon, removed with a hot snare. Resected and retrieved. - Diverticulosis in the sigmoid colon and in the mid sigmoid colon. No specimens collected. - The examination was otherwise normal on direct and retroflexion views. Recommendations : - Discharge patient to home (via wheelchair). - Resume previous diet today. - Continue present medications. - Await pathology results. - Repeat colonoscopy date to be determined after pending pathology results are reviewed for surveillance based on pathology results. - Telephone my office for pathology results in 1 week. My findings are described in the full procedure note, which is enclosed. If I can be of further assistance, please feel free to contact me at Doctor phone number(s): , Work: . Sincerely, Thomas Ramires MD 03/29/2023 10:39:55 AM This report has been signed electronically.
== END 2023-03-29 11:15 | disposition home or self-care (01) ==
LOC: EN 06:11 → AC 06:12
PROVIDERS: PCP Internal Medicine; Referring Provider Internal Medicine; Visit Provider Surgery
PROC: 0DJD8ZZ Inspection of Lower Intestinal Tract, Via Natural or Artificial Opening Endoscopic (ICD-10-PCS; CPT 45378; principal; 2023-03-29 07:55)
DX: D12.5 Benign neoplasm of sigmoid colon (principal); M06.9 Rheumatoid arthritis, unspecified; Z68.42 Body mass index [BMI] 45.0-49.9, adult; E11.9 Type 2 diabetes mellitus without complications; R19.5 Other fecal abnormalities; G47.33 Obstructive sleep apnea (adult) (pediatric); R19.7 Diarrhea, unspecified; I10 Essential (primary) hypertension; Z80.0 Family history of malignant neoplasm of digestive organs; E07.9 Disorder of thyroid, unspecified; E55.9 Vitamin D deficiency, unspecified; K64.4 Residual hemorrhoidal skin tags; K57.30 Diverticulosis of large intestine without perforation or abscess without bleeding; E66.9 Obesity, unspecified
CPT/HCPCS: 45385; 88305; J7120; J1610; J2405

== ENCOUNTER → 2023-04-04 | Outpatient (CLI) | payer BC, SELFPAY ==
[2023-04-04 10:26] LABS: Absolute Lymphocyte Count 2.38 X10^3/uL (0.83-4.51); Absolute Neutrophil Count 6.1 X10^3/uL (2.0-7.7); Basophil# 0.06 X10^3/uL; Basophil% 0.7 % (0-1); Eosinophil# 0.07 X10^3/uL; Eosinophils% 0.8 % (0-5); Hematocrit 44.8 % (37-47); Hemoglobin 14.6 g/dL (12.0-15.0); Lymphocyte # 2.38 X10^3/ul (0.83-4.51); Lymphocyte % 25.9 % (19-41); Mean Corp Hgb Conc 32.6 g/dL (32-36); Mean Corpuscular Hgb 31.5 pg (27.0-32.0); Mean Corpuscular Volume 96.6 fL (81-99); Mean Platelet Vol. 9.9 fl (6.2-12.0); Monocyte# 0.51 X10^3/uL; Monocyte% 5.5 % (0-10); NRBC Flagged by Analyzer 0 % (0-5); Neutrophil # 6.13 X10^3/uL (2.7-7.7); Neutrophil % 66.6 % (47-70); Platelet Count 294 K/mm3 (150-450); RBC Distribution Width CV 12.9 % (11.6-14.6); Red Blood Count 4.64 M/mm3 (4.2-5.4); White Blood Count 9.2 K/mm3 (4.4-11.0)
[2023-04-04 11:03] LABS: ALB/GLOB Ratio 1.1 RATIO (0.9-2.4); AST(SGOT) 13 U/L (15-37); Alanine Aminotransfer ALT/SGPT 33 U/L (13-56); Albumin, Serum 3.6 g/dL (3.2-5.0); Alkaline Phosphatase 99 U/L (45-117); Anion Gap 5 (5-15); BUN 20 mg/dL (7-18); BUN/Creat Ratio 23.6 RATIO (10-20); Chloride 112 mmol/L (98-107); Cholesterol 125 mg/dL (200); Creatinine, Serum 0.85 mg/dL (0.55-1.02); EST Glomerular Filtration Rate 74 mL/min (>60); Est Glom Filt Rate - Afr Amer 90 mL/min (>60); Globulin 3.3 g/dL (2.2-4.2); Glucose 129 mg/dL (74-106); High Density Lipoprotein 43 mg/dL; Potassium 3.9 mmol/L (3.5-5.1); Protein, Total 6.9 g/dL (6.4-8.2); Sodium Level 144 mmol/L (136-145); Triglycerides 122 mg/dL; Very Low Density Lipoprotein 24 mg/dL (5-40)
== END | disposition home or self-care (01) ==
LOC: MTLAB 08:57
PROVIDERS: PCP Internal Medicine; Visit Provider Internal Medicine Rheumatology
DX: E11.9 Type 2 diabetes mellitus without complications (principal); E78.5 Hyperlipidemia, unspecified
CPT/HCPCS: 36415; 80053; 80061; 85025

== ENCOUNTER → 2023-04-11 | Outpatient (CLI) | payer BC, SELFPAY ==
[2023-04-11 10:40] LABS: Mucous, Urine 0 SEEN /hpf (<or=2+); Red Blood Cells-Urine 0 SEEN /hpf (0-5)
[2023-04-11 10:43] LABS: Color, Urine Yellow (Yellow); Glucose, Dipstick 1000 mg/dl (Normal); Ketone-Dipstick Negative (Negative); Leukocyte Esterase-Dipstick 100 /ul (Negative); Nitrite-Dipstick Negative (Negative); Occult Blood-Urine Negative /ul (Negative); Protein-Dipstick Negative (Negative); Specific Gravity, Urine 1.005 (1.002-1.030); Urine Bilirubin Dipstick Negative (Negative); Urine Clarity Clear (Clear); Urine Urobilinogen Normal (Normal)
[2023-04-11 10:52] LABS: Bacteria 2+ /hpf (None Seen); Squamous Epithelial Cells - UA 0-5 SEEN /hpf (5-10); White Blood Cells 5-10 SEEN /hpf (0-5)
== END | disposition home or self-care (01) ==
PROVIDERS: PCP Internal Medicine; Referring Provider Physician Assistant Surgical; Visit Provider Physician Assistant Surgical
DX: R30.0 Dysuria (principal)
CPT/HCPCS: 81001; 87086; 87088

== ENCOUNTER → 2023-06-27 | Outpatient (CLI) | payer BC, SELFPAY ==
[2023-06-27 10:52] LABS: Cholesterol 135 mg/dL (200); High Density Lipoprotein 46 mg/dL; T4 Free Direct 1.11 ng/dL (0.76-1.46); Thyroid Stim Hormone (TSH) 0.32 uIU/mL (0.358-3.74); Triglycerides 121 mg/dL; Very Low Density Lipoprotein 24 mg/dL (5-40)
== END | disposition home or self-care (01) ==
LOC: MTLAB 08:59
PROVIDERS: PCP Internal Medicine; Referring Provider Internal Medicine Endocrinology, Diabetes & Metabolism; Visit Provider Internal Medicine Endocrinology, Diabetes & Metabolism
DX: E03.9 Hypothyroidism, unspecified (principal); E78.5 Hyperlipidemia, unspecified
CPT/HCPCS: 36415; 80061; 84439; 84443

== ENCOUNTER → 2023-09-25 | Outpatient (CLI) | payer BC, SELFPAY ==
[2023-09-25 10:29] LABS: Erythrocyte Sedimentation Rate 2 mm/hr (0-30)
[2023-09-25 10:30] LABS: Absolute Lymphocyte Count 2.77 X10^3/uL (0.83-4.51); Absolute Neutrophil Count 3.6 X10^3/uL (2.0-7.7); Basophil# 0.04 X10^3/uL; Basophil% 0.6 % (0-1); Eosinophil# 0.04 X10^3/uL; Eosinophils% 0.6 % (0-5); Hematocrit 46.7 % (37-47); Hemoglobin 15.7 g/dL (12.0-15.0); Lymphocyte # 2.77 X10^3/ul (0.83-4.51); Lymphocyte % 40.3 % (19-41); Mean Corp Hgb Conc 33.6 g/dL (32-36); Mean Corpuscular Hgb 32.2 pg (27.0-32.0); Mean Corpuscular Volume 95.9 fL (81-99); Mean Platelet Vol. 9.8 fl (6.2-12.0); Monocyte# 0.43 X10^3/uL; Monocyte% 6.3 % (0-10); NRBC Flagged by Analyzer 0 % (0-5); Neutrophil # 3.59 X10^3/uL (2.7-7.7); Neutrophil % 52.1 % (47-70); Platelet Count 299 K/mm3 (150-450); RBC Distribution Width CV 12.9 % (11.6-14.6); RBC Distribution Width SD 45.5 fl (35.1-43.9); Red Blood Count 4.87 M/mm3 (4.2-5.4); White Blood Count 6.9 K/mm3 (4.4-11.0)
[2023-09-25 11:07] LABS: ALB/GLOB Ratio 1.4 RATIO (0.9-2.4); AST(SGOT) 17 U/L (15-37); Alanine Aminotransfer ALT/SGPT 37 U/L (13-56); Albumin, Serum 4.1 g/dL (3.2-5.0); Alkaline Phosphatase 85 U/L (45-117); Anion Gap 2 (5-15); BUN 28 mg/dL (7-18); BUN/Creat Ratio 25.9 RATIO (10-20); CRP 7.44 mg/L (0.0-3.0); Calcium,Total 9.3 mg/dL (8.5-10.1); Chloride 108 mmol/L (98-107); Creatinine, Serum 1.08 mg/dL (0.55-1.02); EST Glomerular Filtration Rate 56 mL/min (>60); Est Glom Filt Rate - Afr Amer 68 mL/min (>60); Glucose 135 mg/dL (74-106); Potassium 4.1 mmol/L (3.5-5.1); Protein, Total 7.1 g/dL (6.4-8.2); Sodium Level 138 mmol/L (136-145)
== END | disposition home or self-care (01) ==
PROVIDERS: PCP Internal Medicine; Referring Provider Internal Medicine Rheumatology; Visit Provider Internal Medicine Rheumatology
DX: M05.79 Rheumatoid arthritis with rheumatoid factor of multiple sites without organ or systems involvement (principal); E11.9 Type 2 diabetes mellitus without complications; Z79.899 Other long term (current) drug therapy; M16.0 Bilateral primary osteoarthritis of hip; K76.0 Fatty (change of) liver, not elsewhere classified; F41.9 Anxiety disorder, unspecified; F32.89 Other specified depressive episodes; I10 Essential (primary) hypertension; E03.9 Hypothyroidism, unspecified
CPT/HCPCS: 36415; 80053; 85025; 85652; 86140

== ENCOUNTER → 2023-11-13 | Outpatient (CLI) | payer BC, SELFPAY ==
[2023-11-13 16:45] LABS: Anion Gap 6 (5-15); BUN 23 mg/dL (7-18); BUN/Creat Ratio 23.9 RATIO (10-20); Calcium,Total 10.1 mg/dL (8.5-10.1); Chloride 107 mmol/L (98-107); Creatinine, Serum 0.96 mg/dL (0.55-1.02); EST Glomerular Filtration Rate 64 mL/min (>60); Est Glom Filt Rate - Afr Amer 77 mL/min (>60); Glucose 122 mg/dL (74-106); Potassium 4.5 mmol/L (3.5-5.1); Sodium Level 141 mmol/L (136-145)
== END | disposition home or self-care (01) ==
LOC: BIMLAB 15:30
PROVIDERS: PCP Internal Medicine; Visit Provider Internal Medicine
DX: I10 Essential (primary) hypertension (principal)
CPT/HCPCS: 36415; 80048

== ENCOUNTER → 2024-01-01 | Outpatient (CLI) | payer BC, SELFPAY ==
[2024-01-01 10:14] LABS: Absolute Lymphocyte Count 2.82 X10^3/uL (0.83-4.51); Absolute Neutrophil Count 3.8 X10^3/uL (2.0-7.7); Basophil# 0.04 X10^3/uL; Basophil% 0.6 % (0-1); Eosinophil# 0.05 X10^3/uL; Eosinophils% 0.7 % (0-5); Hematocrit 45.9 % (37-47); Hemoglobin 15.1 g/dL (12.0-15.0); Lymphocyte # 2.82 X10^3/ul (0.83-4.51); Lymphocyte % 39.4 % (19-41); Mean Corp Hgb Conc 32.9 g/dL (32-36); Mean Corpuscular Hgb 31.5 pg (27.0-32.0); Mean Corpuscular Volume 95.8 fL (81-99); Mean Platelet Vol. 9.6 fl (6.2-12.0); Monocyte# 0.45 X10^3/uL; Monocyte% 6.3 % (0-10); NRBC Flagged by Analyzer 0 % (0-5); Neutrophil # 3.77 X10^3/uL (2.7-7.7); Neutrophil % 52.7 % (47-70); Platelet Count 285 K/mm3 (150-450); RBC Distribution Width CV 12.4 % (11.6-14.6); RBC Distribution Width SD 43.8 fl (35.1-43.9); Red Blood Count 4.79 M/mm3 (4.2-5.4); White Blood Count 7.2 K/mm3 (4.4-11.0)
[2024-01-01 11:28] LABS: ALB/GLOB Ratio 1.2 RATIO (0.9-2.4); AST(SGOT) 20 U/L (15-37); Alanine Aminotransfer ALT/SGPT 45 U/L (13-56); Alkaline Phosphatase 91 U/L (45-117); Anion Gap 7 (5-15); BUN 23 mg/dL (7-18); BUN/Creat Ratio 23.5 RATIO (10-20); Chloride 107 mmol/L (98-107); Cholesterol 133 mg/dL (200); Creatinine, Serum 0.98 mg/dL (0.55-1.02); EST Glomerular Filtration Rate 63 mL/min (>60); Est Glom Filt Rate - Afr Amer 76 mL/min (>60); Globulin 3.2 g/dL (2.2-4.2); Glucose 133 mg/dL (74-106); High Density Lipoprotein 49 mg/dL; Potassium 4.1 mmol/L (3.5-5.1); Protein, Total 7.2 g/dL (6.4-8.2); Sodium Level 138 mmol/L (136-145); Thyroid Stim Hormone (TSH) 0.51 uIU/mL (0.358-3.74); Triglycerides 129 mg/dL; Very Low Density Lipoprotein 26 mg/dL (5-40)
== END | disposition home or self-care (01) ==
LOC: MTLAB 08:39
PROVIDERS: Internal Medicine Endocrinology, Diabetes & Metabolism; PCP Internal Medicine; Referring Provider Internal Medicine Rheumatology; Visit Provider Internal Medicine Rheumatology
DX: M05.79 Rheumatoid arthritis with rheumatoid factor of multiple sites without organ or systems involvement (principal); Z79.899 Other long term (current) drug therapy
CPT/HCPCS: 36415; 80053; 80061; 84443; 85025

== ENCOUNTER → 2024-04-27 | Outpatient (CLI) | payer BC, SELFPAY ==
--- NOTE | 2024-04-27 08:55 | RAD_ITS ---
STUDY: X-RAY - RIGHT SHOULDER REASON FOR EXAM: Female, 53 years old. Pain. TECHNIQUE: 4 views of the right shoulder. COMPARISON: None. FINDINGS: There is calcific density adjacent to the greater tuberosity of the humeral head, compatible with calcific tendinitis. Normal glenohumeral articulation. There is mild acromioclavicular arthrosis. Normal acromion. Normal humeral head and visualized proximal humerus. The soft tissue structures are unremarkable. There is no demonstrated fracture. Normal visualized pulmonary apex. RAD/Shoulder min 2 Views IMPRESSION: Calcific density adjacent to the greater tuberosity of the humeral head, compatible with calcific tendinitis. Mild acromioclavicular arthrosis. Electronically Signed: Ghanshyam Contreras MD at 9:11 EDT ,
== END | disposition home or self-care (01) ==
PROVIDERS: PCP Internal Medicine; Referring Provider Physician Assistant; Visit Provider Physician Assistant
DX: M25.511 Pain in right shoulder (principal); M75.41 Impingement syndrome of right shoulder
CPT/HCPCS: 73030

== ENCOUNTER → 2024-05-21 | Outpatient (CLI) | payer BC, SELFPAY ==
[2024-05-21 12:56] LABS: Anion Gap 8 (5-15); BUN 28 mg/dL (7-18); BUN/Creat Ratio 26.7 RATIO (10-20); Calcium,Total 9.4 mg/dL (8.5-10.1); Chloride 107 mmol/L (98-107); Creatinine, Serum 1.05 mg/dL (0.55-1.02); EST Glomerular Filtration Rate 58 mL/min (>60); Est Glom Filt Rate - Afr Amer 70 mL/min (>60); Glucose 140 mg/dL (74-106); Potassium 4.6 mmol/L (3.5-5.1); Sodium Level 140 mmol/L (136-145)
== END | disposition home or self-care (01) ==
LOC: BIMLAB 08:02
PROVIDERS: PCP Internal Medicine; Referring Provider Internal Medicine; Visit Provider Internal Medicine
DX: I10 Essential (primary) hypertension (principal)
CPT/HCPCS: 36415; 80048

== ENCOUNTER 2024-05-28 10:00 | Outpatient (RCR) | payer BC, SELFPAY ==
--- NOTE | 2024-05-05 13:05 | HP.PTEVAL_ITS ---
Patient's Visit Information Visit Information Visit Information: POONAM ALANIS is a 53 year old F referred to Physical Therapy by MARBIN Hui with a diagnosis of PAIN IN RIGHT SHOULDER ,IMPINGEMENT SYNDROME OF RIGHT SHOULDER. Date of Evaluation: 05/05/24 Physical Therapist: Fransisco Mcgraw, PT, Cert MDT, OCS Visit Plan Frequency: 2x /Week Duration: 4 Weeks Plan: PT INTERVENTIONS RTC/SCAPULAR ,POSTURAL EX'S , ROM AND MODALITIES FOR PAIN Subjective Subjective: This 53 y/o female presents to physical therapy with right shoulder pain. Patient has shoulder pain ~ 1 month. Patient insidious shoulder pain . Patient pain located lateral deltoid described ache. Seen PA then DR Allen x- rays showed calcified tendonitis . Recommended PT vs surgery thus opt to have therapy . Prescribed mobic . Aggravating factors lifting OH ,reaching OH affects housework tasks and ADL's. Patient alleviating factors rest medication and stretches. Patient has stiffness in morning. Patient denies paresthesia tingling-. Patient pain affects sleeping . Patient has no injury. Patient pain causes deficits with ADLS , Patient goals to decrease pain. SOCIAL: VOCATION: disability Pain Right Shoulder: Pain Intensity (Out of 10): 5 Pain Intensity Range: 10 Objective Objective: POSTURE: rounded shoulders head forward ,mild thoracic kyphosis NEURO: denies paresthesia/tingling PALAPTION: unremarkable AROM: shoulder flexion 150 degrees bpain , abduction 150 degrees pain , ER 85 degrees ,IR T10 MMT: ( peak force ) supraspinatus 8.1 ,infraspinatus 10.2 ,deltoid 5.1 ,subscapularis 16.2 Special Tests R Shoulder Drop Sign - IS Test: Negative R Shoulder Empty Can - SS: Positive R Shoulder Belly Press - SupScap: Negative R Shoulder Neer - Impingement: Positive R Shoulder Wheeler Sylvester - Impingement: Positive R Shoulder Biceps Load Test - Labrum: Positive R Shoulder Speeds Test - Labrum/Biceps: Positive Balance/Special Test Scores Quick DASH Score: 38.6350 Goals Goal 1:: Patient to be I with HEP for shoulder Goal Time Frame: 4-6 Weeks Goal 2:: Patient to improve strength peak force RTC/deltoid by 5 -10# to improve function OH Goal Time Frame: 4-6 Weeks Goal 3:: Patient to demonstrate 50% improvement with function and ADL and housework tasks Goal Time Frame: 4-6 Weeks Goal 4:: Patient to improve AROM WFL all planes without pain for activities' above 90% for housework tasks Goal Time Frame: 4-6 Weeks Goal 5:: Patient to improve quick dash by 5 points to improve QOL and function Goal Time Frame: 4-6 Weeks Rehabilitation Potential Physical Therapy Diagnosis: This patient has calcification shoulder with positiv e signs of impingement and weakness RTC impairs ADLS and housework tasks especially OH thus benefit from skilled PT Rehabilitation Potential: Good Anticipated Interventions Patient/Client Instruction: Educate patient on: Condition and Plan of Care For the Purpose of:: To decrease pain, To increase ROM, To improve muscle performance and motor function, To improve ability to perform ADL's, To increase tolerance to activity/condition/position, To improve ability of physical actions for home/community/work/leisure, To improve health of tissue, To decrease soft tissue restriction, To increase flexibility/ROM and To improve tolerance to ADL's Therapeutic Exercise to Include: Strength training, Active ROM and Scapular Strength/Stabilization Comment: RTC For the Purpose of:: To decrease pain, To increase ROM, To improve muscle performance and motor function, To improve ability to perform ADL's, To increase tolerance to activity/condition/position, To improve ability of physical actions for home/community/work/leisure, To improve health of tissue, To decrease soft tissue restriction, To increase flexibility/ROM and To reduce risk of recurrence TENS: Yes IF ES: Yes Cryotherapy (ice pack, ice massage): Yes Thermo therapy (hot pack): Yes Ultrasound (thermal/non thermal): Yes For the Purpose of:: To decrease pain, To increase ROM, To improve nutrient delivery to tissue, To increase oxygenation perfusion, To improve health of tissue and To decrease soft tissue restriction Text: Thank you for the opportunity to evaluate your patient. For Medicare and Medicare HMO plans, please review the plan of care and approve it. It will need to be FAXED BACK to us at [phone] for Medicare purposes. For Medicare only, by signing this I certify the plan of care. Please let me know if there are questions or concerns regarding this plan of care. Physician Signature: Date:
--- NOTE | 2024-05-28 10:24 | HP.PTDCSUM ---
Discharge Summary D/C summary: It has been my pleasure to treat POONAM ALANIS referred by MARBIN Hui, with the diagnosis of PAIN IN RIGHT SHOULDER ,IMPINGEMENT SYNDROME OF RIGHT SHOULDER for a total of 7 visit(s). Discharge Date: Please see the following information for a summary of their discharge status. Subjective Subjective: Doing good .. no pain Pain Right Shoulder: Pain Intensity (Out of 10): 0 Overall Improvement % Improvement: 100 Objective Objective/Function: POSTURE: rounded shoulders head forward ,mild thoracic kyphosis NEURO: denies paresthesia/tingling PALAPTION: unremarkable AROM: shoulder flexion 160 degrees , abduction 160 degrees pain , ER 85 degrees ,IR T10 MMT: ( peak force ) supraspinatus 18.8 ,infraspinatus 17.2 ,.2 ,subscapularis 26.2 Goals Goal 1:: Patient to be I with HEP for shoulder Goal Progress: Goal Met Goal 2:: Patient to improve strength peak force RTC/deltoid by 5 -10# to improve function OH Goal Progress: Goal Met Goal 3:: Patient to demonstrate 50% improvement with function and ADL and housework tasks Goal Progress: Goal Met Goal 4:: Patient to improve AROM WFL all planes without pain for activities' above 90% for housework tasks Goal 5:: Patient to improve quick dash by 5 points to improve QOL and function Goal Progress: Goal Met Plan Plan: D/C D/C Information d/c sentence: If there are questions or concerns regarding this patient's physical therapy, please feel free to call me at [phone]. Thank you for the referral of this patient. Sincerely, Fransisco Mcgraw, PT, Cert MDT, OCS Balance/Gait/Functional tests Balance/Special Test Scores Quick DASH Score: 0 Improvement % Improvement: 100
== END 2024-05-28 19:00 | disposition home or self-care (01) ==
LOC: PT 10:00
PROVIDERS: PCP Internal Medicine; Referring Provider Physician Assistant; Visit Provider Physician Assistant
DX: M75.41 Impingement syndrome of right shoulder (principal); M25.511 Pain in right shoulder
CPT/HCPCS: 97110; 97162; 97530

== ENCOUNTER → 2024-06-23 | Outpatient (CLI) | payer BC, SELFPAY ==
[2024-06-23 12:31] LABS: Absolute Lymphocyte Count 2.81 X10^3/uL (0.83-4.51); Absolute Neutrophil Count 3.5 X10^3/uL (2.0-7.7); Basophil# 0.04 X10^3/uL; Basophil% 0.6 % (0-1); Eosinophil# 0.06 X10^3/uL; Eosinophils% 0.9 % (0-5); Hematocrit 46.4 % (37-47); Hemoglobin 15.7 g/dL (12.0-15.0); Lymphocyte # 2.81 X10^3/ul (0.83-4.51); Lymphocyte % 40.1 % (19-41); Mean Corp Hgb Conc 33.8 g/dL (32-36); Mean Corpuscular Hgb 32.5 pg (27.0-32.0); Mean Corpuscular Volume 96.1 fL (81-99); Mean Platelet Vol. 9.8 fl (6.2-12.0); Monocyte# 0.57 X10^3/uL; Monocyte% 8.1 % (0-10); NRBC Flagged by Analyzer 0 % (0-5); Neutrophil # 3.51 X10^3/uL (2.7-7.7); Platelet Count 258 K/mm3 (150-450); RBC Distribution Width CV 12.1 % (11.6-14.6); RBC Distribution Width SD 42.9 fl (35.1-43.9); Red Blood Count 4.83 M/mm3 (4.2-5.4)
[2024-06-23 12:49] LABS: ALB/GLOB Ratio 1.3 RATIO (0.9-2.4); AST(SGOT) 16 U/L (15-37); Alanine Aminotransfer ALT/SGPT 37 U/L (13-56); Albumin, Serum 3.9 g/dL (3.2-5.0); Alkaline Phosphatase 82 U/L (45-117); Anion Gap 5 (5-15); BUN 27 mg/dL (7-18); BUN/Creat Ratio 28.9 RATIO (10-20); Calcium,Total 9.4 mg/dL (8.5-10.1); Chloride 109 mmol/L (98-107); Creatinine, Serum 0.93 mg/dL (0.55-1.02); EST Glomerular Filtration Rate 66 mL/min (>60); Est Glom Filt Rate - Afr Amer 80 mL/min (>60); Glucose 80 mg/dL (74-106); Protein, Total 6.9 g/dL (6.4-8.2); Sodium Level 140 mmol/L (136-145)
== END | disposition home or self-care (01) ==
PROVIDERS: PCP Internal Medicine; Referring Provider Internal Medicine Rheumatology; Visit Provider Internal Medicine Rheumatology
DX: M05.79 Rheumatoid arthritis with rheumatoid factor of multiple sites without organ or systems involvement (principal); M16.0 Bilateral primary osteoarthritis of hip; Z79.899 Other long term (current) drug therapy
CPT/HCPCS: 36415; 80053; 85025

== ENCOUNTER → 2024-09-03 | Outpatient (CLI) | payer BC, SELFPAY ==
[2024-09-03 12:22] LABS: Absolute Lymphocyte Count 2.49 X10^3/uL (0.83-4.51); Absolute Neutrophil Count 3.9 X10^3/uL (2.0-7.7); Basophil# 0.04 X10^3/uL; Basophil% 0.6 % (0-1); Eosinophil# 0.15 X10^3/uL; Eosinophils% 2.1 % (0-5); Hematocrit 46.4 % (37-47); Hemoglobin 15.1 g/dL (12.0-15.0); Lymphocyte # 2.49 X10^3/ul (0.83-4.51); Lymphocyte % 34.9 % (19-41); Mean Corp Hgb Conc 32.5 g/dL (32-36); Mean Corpuscular Hgb 31.3 pg (27.0-32.0); Mean Corpuscular Volume 96.3 fL (81-99); Mean Platelet Vol. 9.7 fl (6.2-12.0); Monocyte# 0.52 X10^3/uL; Monocyte% 7.3 % (0-10); NRBC Flagged by Analyzer 0 % (0-5); Neutrophil # 3.91 X10^3/uL (2.7-7.7); Neutrophil % 54.7 % (47-70); Platelet Count 266 K/mm3 (150-450); RBC Distribution Width CV 12.3 % (11.6-14.6); RBC Distribution Width SD 43.7 fl (35.1-43.9); Red Blood Count 4.82 M/mm3 (4.2-5.4); White Blood Count 7.1 K/mm3 (4.4-11.0)
[2024-09-03 14:07] LABS: Microalbumin,Random Urine 25.6 mg/L (NO RANGE EST.); Microalbumin:Creatinine Ratio 10.7 mg/g CRE (<30 mg/g CRE)
[2024-09-03 16:09] LABS: ALB/GLOB Ratio 1.2 RATIO (0.9-2.4); AST(SGOT) 22 U/L (15-37); Alanine Aminotransfer ALT/SGPT 44 U/L (13-56); Albumin, Serum 3.7 g/dL (3.2-5.0); Alkaline Phosphatase 90 U/L (45-117); Anion Gap 7 (5-15); BUN 25 mg/dL (7-18); BUN/Creat Ratio 31.7 RATIO (10-20); Calcium,Total 9.1 mg/dL (8.5-10.1); Chloride 111 mmol/L (98-107); Cholesterol 131 mg/dL (200); Creatinine, Serum 0.79 mg/dL (0.55-1.02); EST Glomerular Filtration Rate 80 mL/min (>60); Est Glom Filt Rate - Afr Amer 97 mL/min (>60); Globulin 3.2 g/dL (2.2-4.2); Glucose 113 mg/dL (74-106); High Density Lipoprotein 58 mg/dL; Protein, Total 6.9 g/dL (6.4-8.2); Sodium Level 143 mmol/L (136-145); Thyroid Stim Hormone (TSH) 0.271 uIU/mL (0.358-3.740); Triglycerides 103 mg/dL; Very Low Density Lipoprotein 21 mg/dL (5-40)
== END | disposition home or self-care (01) ==
LOC: MTLAB 10:50
PROVIDERS: Internal Medicine Endocrinology, Diabetes & Metabolism; PCP Internal Medicine; Referring Provider Internal Medicine Rheumatology; Visit Provider Internal Medicine Rheumatology
DX: M05.79 Rheumatoid arthritis with rheumatoid factor of multiple sites without organ or systems involvement (principal); M16.0 Bilateral primary osteoarthritis of hip; Z79.899 Other long term (current) drug therapy
CPT/HCPCS: 36415; 80053; 80061; 82043; 82570; 84443; 85025

== ENCOUNTER → 2024-09-08 | Outpatient (CLI) | payer BC, SELFPAY ==
[2024-09-11 04:07] LABS: QNTFERON TB Mitogen Value > 10.00 IU/mL (.); QNTFERON TB Nil Value 0 IU/mL (.); QNTFERON TB1+ Ag Value 0 IU/mL (.); QNTFERON TB2+ Ag Value 0.01 IU/mL (.); QNTIFERON TB Positive Criteria Negative (Negative)
== END | disposition home or self-care (01) ==
LOC: MTLAB 10:16
PROVIDERS: PCP Internal Medicine; Referring Provider Internal Medicine Rheumatology; Visit Provider Internal Medicine Rheumatology
DX: M05.79 Rheumatoid arthritis with rheumatoid factor of multiple sites without organ or systems involvement (principal); Z79.899 Other long term (current) drug therapy
CPT/HCPCS: 36415; 86480

== ENCOUNTER → 2024-11-25 | Outpatient (CLI) | payer BC, SELFPAY ==
[2024-11-25 15:37] LABS: Absolute Lymphocyte Count 3.21 X10^3/uL (0.83-4.51); Absolute Neutrophil Count 4.7 X10^3/uL (2.0-7.7); Basophil# 0.06 X10^3/uL; Basophil% 0.7 % (0-1); Eosinophil# 0.04 X10^3/uL; Eosinophils% 0.5 % (0-5); Hematocrit 48.6 % (37-47); Hemoglobin 16.3 g/dL (12.0-15.0); Lymphocyte # 3.21 X10^3/ul (0.83-4.51); Lymphocyte % 36.9 % (19-41); Mean Corp Hgb Conc 33.5 g/dL (32-36); Mean Corpuscular Hgb 32.1 pg (27.0-32.0); Mean Corpuscular Volume 95.7 fL (81-99); Mean Platelet Vol. 9.5 fl (6.2-12.0); Monocyte# 0.69 X10^3/uL; Monocyte% 7.9 % (0-10); NRBC Flagged by Analyzer 0 % (0-5); Neutrophil # 4.66 X10^3/uL (2.7-7.7); Neutrophil % 53.7 % (47-70); Platelet Count 306 K/mm3 (150-450); RBC Distribution Width CV 12.6 % (11.6-14.6); RBC Distribution Width SD 44.5 fl (35.1-43.9); Red Blood Count 5.08 M/mm3 (4.2-5.4); White Blood Count 8.7 K/mm3 (4.4-11.0)
[2024-11-25 16:39] LABS: ALB/GLOB Ratio 1.7 RATIO (0.9-2.4); AST(SGOT) 29 U/L (<=31); Alanine Aminotransfer ALT/SGPT 61 U/L (<=34); Albumin, Serum 4.5 g/dL (3.5-5.0); Alkaline Phosphatase 86 U/L (35-104); Anion Gap 13 (5-15); BUN 22 mg/dL (4-19); BUN/Creat Ratio 24.2 RATIO (10-20); Calcium,Total 9.6 mg/dL (7.6-11.0); Carbon Dioxide 22.6 mmol/L (21.0-32.0); Chloride 105 mmol/L (98-108); Creatinine, Serum 0.92 mg/dL (0.70-1.20); EST Glomerular Filtration Rate 73 (>60); Globulin 2.7 g/dL (2.2-4.2); Glucose 123 mg/dL (70-99); Potassium 4.3 mmol/L (3.3-5.1); Protein, Total 7.2 g/dL (5.9-8.4); Sodium Level 140 mmol/L (133-145); Total Bilirubin 1.08 mg/dL (0.00-1.30)
== END | disposition home or self-care (01) ==
LOC: BIMLAB 11:44
PROVIDERS: PCP Internal Medicine; Referring Provider Internal Medicine Rheumatology; Visit Provider Internal Medicine Rheumatology
DX: M05.79 Rheumatoid arthritis with rheumatoid factor of multiple sites without organ or systems involvement (principal); Z79.899 Other long term (current) drug therapy
CPT/HCPCS: 36415; 80053; 85025

== ENCOUNTER → 2024-12-11 | Outpatient (CLI) | payer BC, SELFPAY ==
[2024-12-11 10:56] LABS: ALB/GLOB Ratio 1.8 RATIO (0.9-2.4); AST(SGOT) 25 U/L (<=31); Alanine Aminotransfer ALT/SGPT 32 U/L (<=34); Albumin, Serum 4.4 g/dL (3.5-5.0); Alkaline Phosphatase 77 U/L (35-104); Anion Gap 10 (5-15); BUN 25 mg/dL (4-19); BUN/Creat Ratio 23.5 RATIO (10-20); Calcium,Total 9.8 mg/dL (7.6-11.0); Carbon Dioxide 24.8 mmol/L (21.0-32.0); Chloride 104 mmol/L (98-108); Cholesterol 146 mg/dL (<=200); Creatinine, Serum 1.05 mg/dL (0.70-1.20); EST Glomerular Filtration Rate 62 (>60); Globulin 2.4 g/dL (2.2-4.2); Glucose 139 mg/dL (70-99); High Density Lipoprotein 53 mg/dL; Low Density Lipoprotein Calc. 70 mg/dL; Potassium 4.2 mmol/L (3.3-5.1); Protein, Total 6.9 g/dL (5.9-8.4); Sodium Level 139 mmol/L (133-145); Total Bilirubin 0.87 mg/dL (0.00-1.30); Triglycerides 115 mg/dL; Very Low Density Lipoprotein 23 mg/dL (5-40); cholesterol:hdl ratio screen 2.74
== END | disposition home or self-care (01) ==
LOC: MTLAB 08:01
PROVIDERS: PCP Internal Medicine; Referring Provider Internal Medicine Cardiovascular Disease; Visit Provider Internal Medicine Cardiovascular Disease
DX: E11.649 Type 2 diabetes mellitus with hypoglycemia without coma (principal); Z79.4 Long term (current) use of insulin; I10 Essential (primary) hypertension; E78.5 Hyperlipidemia, unspecified; R94.39 Abnormal result of other cardiovascular function study
CPT/HCPCS: 36415; 80053; 80061

== ENCOUNTER → 2025-02-01 | Outpatient (CLI) | payer BC, SELFPAY | END | disposition home or self-care (01) | LOC: CVS 09:26 | PROVIDERS: PCP Internal Medicine; Referring Provider Internal Medicine Cardiovascular Disease; Visit Provider Internal Medicine Cardiovascular Disease | DX: I25.10 Atherosclerotic heart disease of native coronary artery without angina pectoris (principal) | CPT/HCPCS: 93306; Q9957; A4216; C8929 ==

== ENCOUNTER → 2025-02-26 | Outpatient (CLI) | payer BC, SELFPAY ==
[2025-02-26 15:52] LABS: Hematocrit 46.3 % (37-47); Hemoglobin 15.5 g/dL (12.0-15.0); Immature Granulocytes Count 0.020 X10^3/uL (0.0-0.0); Mean Corp Hgb Conc 33.5 g/dL (32-36); Mean Corpuscular Volume 95.7 fL (81-99); Mean Platelet Vol. 9.9 fl (6.2-12.0); NRBC Flagged by Analyzer 0 % (0-5); Platelet Count 255 K/mm3 (150-450); RBC Distribution Width CV 12.4 % (11.6-14.6); RBC Distribution Width SD 43.8 fl (35.1-43.9); Red Blood Count 4.84 M/mm3 (4.2-5.4); White Blood Count 6.9 K/mm3 (4.4-11.0)
[2025-02-26 16:25] LABS: AST(SGOT) 23 U/L (<=31); Alanine Aminotransfer ALT/SGPT 40 U/L (<=34); Albumin, Serum 4.5 g/dL (3.5-5.0); Alkaline Phosphatase 87 U/L (35-104); Anion Gap 11 (5-15); BUN 23 mg/dL (4-19); BUN/Creat Ratio 24.2 RATIO (10-20); Calcium,Total 9.4 mg/dL (7.6-11.0); Carbon Dioxide 25.5 mmol/L (21.0-32.0); Chloride 106 mmol/L (98-108); Globulin 2.2 g/dL (2.2-4.2); Glucose 110 mg/dL (70-99); Potassium 4.4 mmol/L (3.3-5.1)
[2025-02-26 17:55] LABS: Vitamin D,25 Hydroxy 40.1 ng/mL (30-100)
== END | disposition home or self-care (01) ==
LOC: MTLAB 11:50
PROVIDERS: PCP Internal Medicine; Referring Provider Internal Medicine Endocrinology, Diabetes & Metabolism; Visit Provider Internal Medicine Rheumatology
DX: M05.79 Rheumatoid arthritis with rheumatoid factor of multiple sites without organ or systems involvement (principal); M16.0 Bilateral primary osteoarthritis of hip; K76.0 Fatty (change of) liver, not elsewhere classified; Z79.899 Other long term (current) drug therapy
CPT/HCPCS: 36415; 80053; 82306; 84443; 85025

== ENCOUNTER → 2025-05-14 | Outpatient (CLI) | payer BC, SELFPAY ==
[2025-05-14 10:16] LABS: Hematocrit 46.2 % (37-47); Hemoglobin 15.3 g/dL (12.0-15.0); Immature Granulocytes Count 0.020 X10^3/uL (0.0-0.0); Mean Corp Hgb Conc 33.1 g/dL (32-36); Mean Corpuscular Volume 95.3 fL (81-99); Mean Platelet Vol. 9.8 fl (6.2-12.0); NRBC Flagged by Analyzer 0 % (0-5); Platelet Count 259 K/mm3 (150-450); RBC Distribution Width CV 12.2 % (11.6-14.6); RBC Distribution Width SD 42.9 fl (35.1-43.9); Red Blood Count 4.85 M/mm3 (4.2-5.4); White Blood Count 6.6 K/mm3 (4.4-11.0)
[2025-05-14 10:35] LABS: AST(SGOT) 24 U/L (<=31); Alanine Aminotransfer ALT/SGPT 40 U/L (<=34); Albumin, Serum 4.4 g/dL (3.5-5.0); Alkaline Phosphatase 93 U/L (35-104); Anion Gap 9 (5-15); BUN 23 mg/dL (4-19); BUN/Creat Ratio 27.2 RATIO (10-20); Calcium,Total 9.1 mg/dL (7.6-11.0); Carbon Dioxide 26.9 mmol/L (21.0-32.0); Chloride 103 mmol/L (98-108); Globulin 2.2 g/dL (2.2-4.2); Glucose 154 mg/dL (70-99); Potassium 4.1 mmol/L (3.3-5.1)
== END | disposition home or self-care (01) ==
LOC: MTLAB 08:43
PROVIDERS: PCP Internal Medicine; Referring Provider Internal Medicine Rheumatology; Visit Provider Internal Medicine Rheumatology
DX: M05.79 Rheumatoid arthritis with rheumatoid factor of multiple sites without organ or systems involvement (principal); M16.0 Bilateral primary osteoarthritis of hip; Z79.899 Other long term (current) drug therapy
CPT/HCPCS: 36415; 80053; 85025

== ENCOUNTER → 2025-05-26 | Outpatient (CLI) | payer BC, SELFPAY ==
--- NOTE | 2025-05-26 12:51 | RAD_ITS ---
PROCEDURE: RAD/HIP, UNI W/ Pelvis 2-3 Views
== END | disposition home or self-care (01) ==
PROVIDERS: PCP Internal Medicine; Referring Provider Internal Medicine; Visit Provider Internal Medicine
DX: M25.552 Pain in left hip (principal)
CPT/HCPCS: 73502